=== PATIENT | male | born 1945 | race Caucasian/White ===

== ENCOUNTER 2020-09-13 15:33 | Emergency (ER) | payer MEDICARE, MEDICAID, SELFPAY ==
[2020-09-13 15:37] VITALS: BP 122/75; PULSE 90; RESP 16; TEMP 36.7; O2SAT 96; BMI 24.3
--- NOTE | 2020-09-13 16:00 | PC.NURSE ---
UNWITNESSED FALL AT [facility] IN [place]. NEUROS +. SMALL LAC ABOVE R EYE. SELF REPORTED MECHANICAL FALL. NO OTHER INJURIES, ONLY HEAD PAIN REPORTED.
--- NOTE | 2020-09-13 16:03 | CT_ITS ---
EXAMINATION: CT HEAD WITHOUT CONTRAST CLINICAL INFORMATION: Fall. COMPARISON: None TECHNIQUE: Contiguous axial imaging was performed from the skull base to vertex without intravenous administration of contrast. This CT examination was performed using dose optimization techniques as appropriate, variously including the following: *Automated exposure control *Adjustment of mA and/or kV according to patient size (this includes techniques or standardized protocols for targeted exams where dose is matched to indication/reason for exam; i.e. extremities or head) *Use of iterative reconstruction technique DLP: 1471 mGy-cm FINDINGS: There is no evidence of acute intracranial hemorrhage or territorial infarction. No abnormal mass effect or midline shift is seen. Fraire to white matter differentiation is well preserved. No extra-axial fluid collections are identified. Mild cerebral volume loss. Mild periventricular and deep white matter hypodensities having the appearance of chronic microangiopathic changes. No acute calvarial fracture. The mastoid air cells and visualized portions of the paranasal sinuses are well aerated. CT/CT head/brain wo con IMPRESSION: No CT evidence of acute intracranial pathology. Chronic findings as detailed above.
--- NOTE | 2020-09-13 16:03 | CT_ITS ---
EXAMINATION: CT CERVICAL SPINE WITHOUT CONTRAST CLINICAL INFORMATION: Fall. COMPARISON: None TECHNIQUE: Axial imaging. Sagittal and coronal reconstructions. This CT examination was performed using dose optimization techniques as appropriate, variously including the following: *Automated exposure control *Adjustment of mA and/or kV according to patient size (this includes techniques or standardized protocols for targeted exams where dose is matched to indication/reason for exam; i.e. extremities or head) *Use of iterative reconstruction technique DLP: 1471 mGy-cm FINDINGS: Increased lordotic curvature. Craniocervical, atlantoaxial articulation is maintained. There is mild anterolisthesis of C7 on T1. No acute fracture is identified. Multilevel moderate to severe disc degenerative changes in the spine. This includes severe disc degeneration at C5-C6, C6-C7. Multilevel facet degeneration. No significant prevertebral soft tissue swelling. No suspicious findings in the lung apices. No suspicious findings in the thyroid gland. CT/CT cervical spine wo con IMPRESSION: 1. No CT evidence of acute fracture. 2. Moderate to severe cervical spondylosis.
--- NOTE | 2020-09-13 17:30 | ED.FALL ---
HPI - Fall General Chief Complaint: Fall Stated Complaint: fall Time Seen by Provider: 09/13/20 16:03 Source: EMS Mode of arrival: EMS Limitations: no limitations History of Present Illness HPI Narrative: 75-year-old male with past medical history that is significant for anoxic brain injury, dysarthria, hypertension, schizoaffective disorder, dysphagia, gastroesophageal reflux disease, degenerative disc disease, hypothyroidism, chronic slurred speech, gait instability who currently stays at [facility] presenting with complaint of mechanical fall. Patient apparently tripped over himself falling forward hitting his head on the ground causing laceration to the eyebrow line. Patient offers no complaints. Patient did have COVID early in the has since recovered and offers no complaints. Patient on arrival smiling. MD complaint: fall Fall witnessed: yes, by living facility staff Place fall occurred: snf/SNF Loss of consciousness: none Prolonged down time: no Associated symptoms (after fall): denies Related Data Allergies Allergy/AdvReac Type Severity Reaction Status Date / Time tuberculin, purified protein Allergy Unknown UNKNOWN Verified 09/13/20 15:47 deriva [TUBERCULIN,PURIF.PROT.DERIV.] Review of Systems Review of Systems: Constitutional: No Weight loss, No Fever, No Chills, No Night Sweats, No Fatigue, No Malaise ENT/Mouth: No Hearing loss, No Ear Pain, No Nasal Congestion, No Sinus Pain, No Hoarseness, No sore throat, No Rhinorrhea, No Swallowing Difficulty Eyes: No Eye Pain, No Swelling, No Redness, No Foreign Body, No Discharge, No Vision Changes Cardiovascular: No Chest Pain, No SOB, No Dyspnea on Exertion, No Orthopnea, No Edema, No Palpitations Respiratory: No Cough, No Sputum, No Wheezing, No Smoke Exposure, No Dyspnea Gastrointestinal: No Nausea, No Vomiting, No Diarrhea, No Constipation, No abdominal Pain, No Hematochezia, No Melena Genitourinary: no irregular bleeding, No Dysuria, No Urinary Frequency, No Hematuria, No Urinary Incontinence, No Urgency, No Flank Pain, No Urinary Flow Changes, No Hesitancy Musculoskeletal: No joint pain, No Myalgias, No Joint Swelling Skin: No Skin Lesions, No rash, laceration to right eyebrow line as noted Neuro: No Weakness, No Numbness, No Paresthesias, No Loss of Consciousness, No Dizziness, No Headache Psych: No Social Issues Heme/Lymph: No Bruising, No Bleeding,No Lymphadenopathy Endocrine: No Polyuria, No Polydipsia, No Temperature Intolerance Yes all other systems are reviewed and are negative [facility] Past Medical History Medical History (Updated 09/13/20 @ 18:21 by Alonso Juarez NP) Dysarthria and anarthria Hypothyroidism Schizoaffective disorder Unsteadiness on feet Social History Social History Alcohol intake: never Smoking Status: Smoker, status unknown Use of substances other than those prescribed or required for medical reasons: No Advance Directives: No Advance Directives Information Provided: Yes Physical Exam Vital Signs: Vital Signs: Last Vital Signs Temp 98.0 F 09/13/20 15:37 Pulse 90 09/13/20 15:37 Resp 16 09/13/20 15:37 BP 122/75 09/13/20 15:37 Pulse Ox 96 09/13/20 15:37 Body Mass Index 24.3 Reviewed Const: General: comfortable; No acute distress or intoxicated appearing Nutritional Appearance: average body habitus HENMT: Head: Yes normal to inspection Head images: 1. 1.5 cm superficial laceration to the right eyebrow line. Ears: hearing grossly normal bilaterally Eyes: General: appearance normal, both eyes and all related structures Visual Nava: normal visual nava by confrontation Neck: Neck: Yes normal visual inspection, No positive Brudzinski's sign, No positive Kernig's sign and No tender Thyroid: Thyroid normal Chest: Chest palpation & inspection: normal inspection of the chest Resp: Effort & Inspection: normal respiratory effort Cardio: Jugular venous distension: no JVD GI: Inspection: Yes normal to inspection Percussion: Yes normal to percussion Auscultation: normal bowel sounds : General: Yes no CVA tenderness Back/Spine/Pelvis: Back: no CVA tenderness Skin: General skin exam: no rashes or lesions noted Extrem: General: Yes normal to inspection Course Course Course Narrative: A P of [age]-year-old male with above history presenting with mechanical fall via EMS from [facility] apparently witnessed fall offers no other complaints. No prodromal symptoms. Right eyebrow line laceration repaired with 3 nonabsorbable Prolene stitches. Facility aware to have these removed in [address] of the head head and neck without acute findings. Patient smiling requesting food to eat will be discharged back to facility via EMS. Procedures Laceration Laceration 1: Site: face Side (If applicable): right Size (cm): 1.5 Description: linear Depth: simple, single layer Local Anesthetic: lidocaine 1% Amount of anesthesia used (mL): 5 Pre-repair: wound explored Skin layer closed with: other (Prolene) Size (cm): 5-0 Number of sutures: 3 Technique: other (He does have very long eyebrow hair offered to remove this to easily visualize laceration and sutures he declined) MDM - Fall Medical Records Attestation: I reviewed the patient's medical records. Lab Data Attestation: I reviewed the patient's lab results. Imaging Data Head/cervical spine CT: Radiologist's impression: Tor Gordon 75 M 1945 [place] [address] [address] Scan Report Signed Patient: Tor GordonMR#: [id number] : [id number]:[id number] Age/Sex: 75 / MADM Date: 09/13/20 Loc: .ED Attending Dr: Ordering Physician: Alonso Juarez NP Date of Service: 09/13/20 Procedure(s): CT cervical spine wo con Accession Number(s): [id number] cc: Alonso Juarez NP~ EXAMINATION: CT CERVICAL SPINE WITHOUT CONTRAST CLINICAL INFORMATION: Fall. COMPARISON: None TECHNIQUE: Axial imaging. Sagittal and coronal reconstructions. This CT examination was performed using dose optimization techniques as appropriate, variously including the following: *Automated exposure control *Adjustment of mA and/or kV according to patient size (this includes techniques or standardized protocols for targeted exams where dose is matched to indication/reason for exam; i.e. extremities or head) *Use of iterative reconstruction technique DLP: 1471 mGy-cm FINDINGS: Increased lordotic curvature. Craniocervical, atlantoaxial articulation is maintained. There is mild anterolisthesis of C7 on T1. No acute fracture is identified. Multilevel moderate to severe disc degenerative changes in the spine. This includes severe disc degeneration at C5-C6, C6-C7. Multilevel facet degeneration. No significant prevertebral soft tissue swelling. No suspicious findings in the lung apices. No suspicious findings in the thyroid gland. CT/CT cervical spine wo con IMPRESSION: 1. No CT evidence of acute fracture. 2. Moderate to severe cervical spondylosis. Dictated By:KATHERINE HOUSTON MD Signed By:<Electronically signed by KATHERINE HOUSTON MD in OV>09/13/201743 DD/ 1603 TD/TT: Extrusion Die Template Maker: SHANTANU [place] [address] CT Scan Report Signed Patient: Arian Gordon#: [id number] : 7Acct:[id number] Age/Sex: 75 / MADM Date: 09/13/20 Loc: HO.ED Attending Dr: Ordering Physician: Alonso Juarez NP Date of Service: 09/13/20 Procedure(s): CT cervical spine wo con Accession Number(s): [id number] cc: Alonso Juarez NP~ EXAMINATION: CT CERVICAL SPINE WITHOUT CONTRAST CLINICAL INFORMATION: Fall. COMPARISON: None TECHNIQUE: Axial imaging. Sagittal and coronal reconstructions. This CT examination was performed using dose optimization techniques as appropriate, variously including the following: *Automated exposure control *Adjustment of mA and/or kV according to patient size (this includes techniques or standardized protocols for targeted exams where dose is matched to indication/reason for exam; i.e. extremities or head) *Use of iterative reconstruction technique DLP: 1471 mGy-cm FINDINGS: Increased lordotic curvature. Craniocervical, atlantoaxial articulation is maintained. There is mild anterolisthesis of C7 on T1. No acute fracture is identified. Multilevel moderate to severe disc degenerative changes in the spine. This includes severe disc degeneration at C5-C6, C6-C7. Multilevel facet degeneration. No significant prevertebral soft tissue swelling. No suspicious findings in the lung apices. No suspicious findings in the thyroid gland. CT/CT cervical spine wo con IMPRESSION: 1. No CT evidence of acute fracture. 2. Moderate to severe cervical spondylosis. Dictated By:KATHERINE HOUSTON MD Signed By:<Electronically signed by KATHERINE HOUSTON MD in OV>09/13/201743 DD/ 1603 TD/TT: Extrusion Die Template Maker: SHANTANU Discharge Plan Discharge Clinical Impression: Fall, Facial laceration, Sutured skin wound Patient Disposition: Xfer [facility] Instructions: Fall Prevention for Older Adults (ED), Facial Laceration (ED) Additional Instructions: CT scan of the head as well as cervical spine was within normal limits Laceration to the right side eyebrow line was repaired with 3 nonabsorbable sutures and these need to be removed and 5 days Keep site clean and dry Apply bacitracin daily as needed Return if any concerns or worsening symptoms Thank you Referrals: ED Physician,Mark [Emergency Provider] - 5 days (Suture removal) Sampson Ornelas DO [Primary Care Provider] - 2 days
--- NOTE | 2020-09-13 18:19 | PC.NURSE ---
3 STITCHES PLACED ABOVE R EYE BY RADIO BROADCASTER TALYA. REPORT GIVEN TO MATT ARCHULETA. AWAITING TRANSPORTATION BACK TO FACILITY.
== END 2020-09-13 18:35 ==
PROVIDERS: Emergency Provider Emergency Medicine; PCP Hospitalist
DX: S01.81XA Laceration without foreign body of other part of head, initial encounter (principal); G50.1 Atypical facial pain; M54.2 Cervicalgia; G44.309 Post-traumatic headache, unspecified, not intractable; F20.9 Schizophrenia, unspecified; W18.30XA Fall on same level, unspecified, initial encounter; Y93.9 Activity, unspecified; Y92.9 Unspecified place or not applicable; Y99.9 Unspecified external cause status; Z86.19 Personal history of other infectious and parasitic diseases; Z79.899 Other long term (current) drug therapy
CPT/HCPCS: 12011; 70450; 72125; 99284

== ENCOUNTER 2020-10-02 14:28 | Emergency (ER) | payer MEDICARE, MEDICAID, SELFPAY ==
--- NOTE | 2020-10-02 14:39 | ED_ITS ---
HPI - Altered Mental Status General Chief Complaint: Altered Mental Status <Alexandro Chowdhury MD - Last Filed: 10/02/20 17:06> Stated Complaint: 5am facial droop resolved at 7am <Alexandro Chowdhury MD - Last Filed: 10/02/20 17:06> Time Seen by Provider: 10/02/20 14:39 <Alexandro Chowdhury MD - Last Filed: 10/02/20 17:06> Source: EMS <Alexandro Chowdhury MD - Last Filed: 10/02/20 17:06> Mode of arrival: EMS <Alexandro Chowdhury MD - Last Filed: 10/02/20 17:06> Limitations: altered mental status <Alexandro Chowdhury MD - Last Filed: 10/02/20 17:06> History of Present Illness HPI narrative: Patient with decreased mental status, altered speech, and facial droop that started at 5am, it is now 2:30pm <Alexandro Chowdhury MD - Last Filed: 10/02/20 17:06> MD complaint: altered mental status and decreased responsiveness <Alexandro Chowdhury MD - Last Filed: 10/02/20 17:06> Onset (ago): hour(s) <Alexandro Chowdhury MD - Last Filed: 10/02/20 17:06> Severity: moderate <Alexandro Chowdhury MD - Last Filed: 10/02/20 17:06> Consistency of symptoms: constant <Alexandro Chowdhury MD - Last Filed: 10/02/20 17:06> Related Data Allergies/Adverse Reactions: Allergies Allergy/AdvReac Type Severity Reaction Status Date / Time tuberculin, purified protein Allergy Unknown UNKNOWN Verified 09/13/20 15:47 deriva [TUBERCULIN,PURIF.PROT.DERIV.] <Alexandro Chowdhury MD - Last Filed: 10/02/20 17:06> Review of Systems Review of Systems: Yes Unobtainable due to mental status <Alexandro Chowdhury MD - Last Filed: 10/02/20 17:06> Neurologic: Denies Sensory deficit (Neuro) <Alexandro Chowdhury MD - Last Filed: 10/02/20 17:06> [facility] Past Medical History Medical History: Medical History Dysarthria and anarthria Hypothyroidism Schizoaffective disorder Unsteadiness on feet <Alexandro Chowdhury MD - Last Filed: 10/02/20 17:06> Social History Social History: Social History Alcohol intake: never Smoking Status: Current some day smoker Use of substances other than those prescribed or required for medical reasons: No Advance Directives: No Advance Directives Information Provided: Yes <Alexandro Chowdhury MD - Last Filed: 10/02/20 17:06> Physical Exam Vital Signs: Vital Signs: Last Vital Signs Temp 98.1 F 10/02/20 16:00 Pulse 89 10/02/20 16:00 Resp 14 10/02/20 16:00 BP 134/107 H 10/02/20 16:00 Pulse Ox 99 10/02/20 14:47 Body Mass Index 22.8 <Alexandro Chowdhury MD - Last Filed: 10/02/20 17:06> Vital Signs: Last Vital Signs Temp 98.1 F 10/02/20 16:00 Pulse 89 10/02/20 16:00 Resp 14 10/02/20 16:00 BP 134/107 H 10/02/20 16:00 Pulse Ox 99 10/02/20 14:47 Body Mass Index 22.8 <Matty Mckeon MD - Last Filed: 10/02/20 20:23> Const: Other: Chronically ill appearing <Alexandro Chowdhury MD - Last Filed: 10/02/20 17:06> Nutritional Appearance: average body habitus <Alexandro Chowdhury MD - Last Filed: 10/02/20 17:06> Limitations: other limitations (severe dysarthria) <Alexandro Chowdhury MD - Last Filed: 10/02/20 17:06> HENMT: Head: Yes normal to inspection <Alexandro Chowdhury MD - Last Filed: 10/02/20 17:06> Ears: external ears normal <Alexandro Chowdhury MD - Last Filed: 10/02/20 17:06> General nose exam: Normal external nose present <Alexandro Chowdhury MD - Last Filed: 10/02/20 17:06> Mouth: Normal oral and palatal mucosa present and oropharynx normal <Alexandro Chowdhury MD - Last Filed: 10/02/20 17:06> Throat: Yes posterior oropharynx normal <Alexandro Chowdhury MD - Last Filed: 10/02/20 17:06> Eyes: General: appearance normal, both eyes and all related structures <Alexandro Chowdhury MD - Last Filed: 10/02/20 17:06> Neck: Other: supple <Alexandro Chowdhury MD - Last Filed: 10/02/20 17:06> Neck: Yes normal visual inspection <Alexandro Chowdhury MD - Last Filed: 10/02/20 17:06> Chest: Chest palpation & inspection: normal inspection of the chest <Alexandro Chowdhury MD - Last Filed: 10/02/20 17:06> Resp: Auscultation: clear to auscultation bilaterally <Alexandro Chowdhury MD - Last Filed: 10/02/20 17:06> Cardio: Jugular venous distension: no JVD <Alexandro Chowdhury MD - Last Filed: 10/02/20 17:06> Rate: regular rate <Alexandro Chowdhury MD - Last Filed: 10/02/20 17:06> Rhythm: regular rhythm <Alexandro Chowdhury MD - Last Filed: 10/02/20 17:06> Heart sounds: S1 normal heart sound present and S2 normal heart sound present <Alexandro Chowdhury MD - Last Filed: 10/02/20 17:06> GI: Inspection: Yes normal to inspection <Alexandro Chowdhury MD - Last Filed: 10/02/20 17:06> Palpation (GI): Soft to palpation, nontender and No hepatosplenomegaly present <Alexandro Chowdhury MD - Last Filed: 10/02/20 17:06> Auscultation: normal bowel sounds <Alexandro Chowdhury MD - Last Filed: 10/02/20 17:06> : General: Yes no CVA tenderness <Alexandro Chowdhury MD - Last Filed: 10/02/20 17:06> Back/Spine/Pelvis: Back: no CVA tenderness <Alexandro Chowdhury MD - Last Filed: 10/02/20 17:06> Skin: General skin exam: no rashes or lesions noted <Alexandro Chowdhury MD - Last Filed: 10/02/20 17:06> Neuro: Cranial nerves: Yes CN's II-XII intact bilaterally <Alexandro Chowdhury MD - Last Filed: 10/02/20 17:06> Motor exam (neuro): 5/5 motor strength present throughout <Alexandro Chowdhury MD - Last Filed: 10/02/20 17:06> Sensory Exam: No Sensory deficit (Neuro) <Alexandro Chowdhury MD - Last Filed: 10/02/20 17:06> Extrem: General: Yes normal to inspection <Alexandro Chowdhury MD - Last Filed: 10/02/20 17:06> Psych: Appearance: grossly normal <Alexandro Chowdhury MD - Last Filed: 10/02/20 17:06> NIH Stroke Scale Internal: Initial- Upon Arrival <Alexandro Chowdhury MD - Last Filed: 10/02/20 17:06> Time: 14:42 <Alexandro Chowdhury MD - Last Filed: 10/02/20 17:06> Level of Consciousness: Alert <Alexandro Chowdhury MD - Last Filed: 10/02/20 17:06> Level of Consciousness Questions: Answers neither question correctly <Alexandro Chowdhury MD - Last Filed: 10/02/20 17:06> Level of Consciousness Commands: Performs both tasks correctly <Alexandro Chowdhury MD - Last Filed: 10/02/20 17:06> Best Gaze: Normal <Alexandro Chowdhury MD - Last Filed: 10/02/20 17:06> Visual: No visual loss <Alexandro Chowdhury MD - Last Filed: 10/02/20 17:06> Facial Palsy: Normal <Alexandro Chowdhury MD - Last Filed: 10/02/20 17:06> Motor Arm (Right): No drift <Alexandro Chowdhury MD - Last Filed: 10/02/20 17:06> Motor Arm (Left): No drift <Alexandro Chowdhury MD - Last Filed: 10/02/20 17:06> Motor Leg (Right): No drift <Alexandro Chowdhury MD - Last Filed: 10/02/20 17:06> Motor Leg (Left): No drift <Alexandro Chowdhury MD - Last Filed: 10/02/20 17:06> Limb Ataxia: Absent <Alexandro Chowdhury MD - Last Filed: 10/02/20 17:06> Sensory: Normal <Alexandro Chowdhury MD - Last Filed: 10/02/20 17:06> Best Language: Severe aphasia <Alexandro Chowdhury MD - Last Filed: 10/02/20 17:06> Dysarthia: Severe dysarthria <Alexandro Chowdhury MD - Last Filed: 10/02/20 17:06> Extinction and Inattention: No abnormality <Alexandro Chowdhury MD - Last Filed: 10/02/20 17:06> Score: 6 <Alexandro Chowdhury MD - Last Filed: 10/02/20 17:06> Course Course Course Narrative: staff know patient state he is at baseline awaiting CT results. Will sign out to Dr. Mckeon <Alexandro Chowdhury MD - Last Filed: 10/02/20 17:06> Reevaluation(s) Reevaluation #1: Patient's CTA and CT head is negative for any acute ischemic stroke is at baseline focal neurological deficit [facility] <Matty Mckeon MD - Last Filed: 10/02/20 20:23> Time: 20:22 <Matty Mckeon MD - Last Filed: 10/02/20 20:23> MDM - Altered Mental Status Lab Data Result diagrams: : 10/02/20 15:54 10/02/20 17:42 <Alexandro Chowdhury MD - Last Filed: 10/02/20 17:06> Labs: Lab Results 10/02/20 10/02/20 10/02/20 Range/Units 15:09 15:12 15:54 WBC 6.6 (4.8-10.8) X10*3/uL RBC 4.96 (4.60-5.80) X10*6/uL Hgb 15.3 (14.0-18.0) g/dl Hct 47.2 (42-52) % MCV 95.2 (80-98) fL MCH 30.8 (27.0-33.0) pg MCHC 32.4 (31.0-36.0) g/dl RDW 12.7 (11.0-16.0) % Plt Count 291 (160-400) X10*3/uL MPV 9.0 L (9.4-12.4) fL Immature Gran % (Auto) 0.2 (0.0-0.4) % Neut % (Auto) 65.3 (45-73) % Lymph % (Auto) 16.1 L (20-40) % Trinity % (Auto) 14.8 H (2-11) % Eos % (Auto) 3.0 (0-4) % Baso % (Auto) 0.6 (0-2) % Lymph # (Auto) 1.1 L (1.2-4.9) X10*3/uL Trinity # (Auto) 1.0 (0.1-1.2) X10*3/uL Eos # (Auto) 0.2 (0.0-0.4) X10*3/uL Baso # (Auto) 0.0 (0.0-0.2) X10*3/uL Abs Immat Gran (auto) 0.01 (0.00-0.03) X10*3/uL Absolute Neuts (auto) 4.3 (2.0-8.3) X10*3/uL Absolute Nucleated RBC 0.000 (0.0-0.012) X10*3/uL Nucleated RBC % (auto) 0.0 (0.0-0.2) /100WBC PT (10.8-13.0) SEC Whole Blood PT 11.1 (11.1-13.5) sec INR (0.9-1.1) Whole Blood INR 0.9 (0.9-1.1) APTT (24.1-38.0) SEC Sodium Potassium Chloride Carbon Dioxide Anion Gap BUN Creatinine Estim Creat Clear Calc Estimated GFR POC Glucose 93 (60-115) mg/dL Random Glucose Calcium Total Creatine Kinase Troponin I High Sens (<3.5-35.0) ng/L 01/13/21 01/13/21 01/13/21 Range/Units 15:54 15:54 15:59 WBC (4.8-10.8) X10*3/uL RBC (4.60-5.80) X10*6/uL Hgb (14.0-18.0) g/dl Hct (42-52) % MCV (80-98) fL MCH (27.0-33.0) pg MCHC (31.0-36.0) g/dl RDW (11.0-16.0) % Plt Count (160-400) X10*3/uL MPV (9.4-12.4) fL Immature Gran % (Auto) (0.0-0.4) % Neut % (Auto) (45-73) % Lymph % (Auto) (20-40) % Trinity % (Auto) (2-11) % Eos % (Auto) (0-4) % Baso % (Auto) (0-2) % Lymph # (Auto) (1.2-4.9) X10*3/uL Trinity # (Auto) (0.1-1.2) X10*3/uL Eos # (Auto) (0.0-0.4) X10*3/uL Baso # (Auto) (0.0-0.2) X10*3/uL Abs Immat Gran (auto) (0.00-0.03) X10*3/uL Absolute Neuts (auto) (2.0-8.3) X10*3/uL Absolute Nucleated RBC (0.0-0.012) X10*3/uL Nucleated RBC % (auto) (0.0-0.2) /100WBC PT 12.2 (10.8-13.0) SEC Whole Blood PT (11.1-13.5) sec INR 1.0 (0.9-1.1) Whole Blood INR (0.9-1.1) APTT 36.0 (24.1-38.0) SEC Sodium Cancelled Potassium Cancelled Chloride Cancelled Carbon Dioxide Cancelled Anion Gap Cancelled BUN Cancelled Creatinine Cancelled Estim Creat Clear Calc Cancelled Estimated GFR Cancelled POC Glucose (60-115) mg/dL Random Glucose Cancelled Calcium Cancelled Total Creatine Kinase Cancelled Troponin I High Sens 10.4 (<3.5-35.0) ng/L 10/02/20 Range/Units 17:42 WBC (4.8-10.8) X10*3/uL RBC (4.60-5.80) X10*6/uL Hgb (14.0-18.0) g/dl Hct (42-52) % MCV (80-98) fL MCH (27.0-33.0) pg MCHC (31.0-36.0) g/dl RDW (11.0-16.0) % Plt Count (160-400) X10*3/uL MPV (9.4-12.4) fL Immature Gran % (Auto) (0.0-0.4) % Neut % (Auto) (45-73) % Lymph % (Auto) (20-40) % Trinity % (Auto) (2-11) % Eos % (Auto) (0-4) % Baso % (Auto) (0-2) % Lymph # (Auto) (1.2-4.9) X10*3/uL Trinity # (Auto) (0.1-1.2) X10*3/uL Eos # (Auto) (0.0-0.4) X10*3/uL Baso # (Auto) (0.0-0.2) X10*3/uL Abs Immat Gran (auto) (0.00-0.03) X10*3/uL Absolute Neuts (auto) (2.0-8.3) X10*3/uL Absolute Nucleated RBC (0.0-0.012) X10*3/uL Nucleated RBC % (auto) (0.0-0.2) /100WBC PT (10.8-13.0) SEC Whole Blood PT (11.1-13.5) sec INR (0.9-1.1) Whole Blood INR (0.9-1.1) APTT (24.1-38.0) SEC Sodium 143 Potassium 4.0 Chloride 105 Carbon Dioxide 28 Anion Gap 14 BUN 15 Creatinine 0.84 Estim Creat Clear Calc 82.0 Estimated GFR > 60 POC Glucose (60-115) mg/dL Random Glucose 87 Calcium 9.2 Total Creatine Kinase 386 H Troponin I High Sens (<3.5-35.0) ng/L <Alexandro Luciana, MD - Last Filed: 10/02/20 17:06> Lab Results 10/02/20 10/02/20 10/02/20 Range/Units 15:09 15:12 15:54 WBC 6.6 (4.8-10.8) X10*3/uL RBC 4.96 (4.60-5.80) X10*6/uL Hgb 15.3 (14.0-18.0) g/dl Hct 47.2 (42-52) % MCV 95.2 (80-98) fL MCH 30.8 (27.0-33.0) pg MCHC 32.4 (31.0-36.0) g/dl RDW 12.7 (11.0-16.0) % Plt Count 291 (160-400) X10*3/uL MPV 9.0 L (9.4-12.4) fL Immature Gran % (Auto) 0.2 (0.0-0.4) % Neut % (Auto) 65.3 (45-73) % Lymph % (Auto) 16.1 L (20-40) % Trinity % (Auto) 14.8 H (2-11) % Eos % (Auto) 3.0 (0-4) % Baso % (Auto) 0.6 (0-2) % Lymph # (Auto) 1.1 L (1.2-4.9) X10*3/uL Trinity # (Auto) 1.0 (0.1-1.2) X10*3/uL Eos # (Auto) 0.2 (0.0-0.4) X10*3/uL Baso # (Auto) 0.0 (0.0-0.2) X10*3/uL Abs Immat Gran (auto) 0.01 (0.00-0.03) X10*3/uL Absolute Neuts (auto) 4.3 (2.0-8.3) X10*3/uL Absolute Nucleated RBC 0.000 (0.0-0.012) X10*3/uL Nucleated RBC % (auto) 0.0 (0.0-0.2) /100WBC PT (10.8-13.0) SEC Whole Blood PT 11.1 (11.1-13.5) sec INR (0.9-1.1) Whole Blood INR 0.9 (0.9-1.1) APTT (24.1-38.0) SEC Sodium Potassium Chloride Carbon Dioxide Anion Gap BUN Creatinine Estim Creat Clear Calc Estimated GFR POC Glucose 93 (60-115) mg/dL Random Glucose Calcium Total Creatine Kinase Troponin I High Sens (<3.5-35.0) ng/L 10/02/20 10/02/20 10/02/20 Range/Units 15:54 15:54 15:59 WBC (4.8-10.8) X10*3/uL RBC (4.60-5.80) X10*6/uL Hgb (14.0-18.0) g/dl Hct (42-52) % MCV (80-98) fL MCH (27.0-33.0) pg MCHC (31.0-36.0) g/dl RDW (11.0-16.0) % Plt Count (160-400) X10*3/uL MPV (9.4-12.4) fL Immature Gran % (Auto) (0.0-0.4) % Neut % (Auto) (45-73) % Lymph % (Auto) (20-40) % Trinity % (Auto) (2-11) % Eos % (Auto) (0-4) % Baso % (Auto) (0-2) % Lymph # (Auto) (1.2-4.9) X10*3/uL Trinity # (Auto) (0.1-1.2) X10*3/uL Eos # (Auto) (0.0-0.4) X10*3/uL Baso # (Auto) (0.0-0.2) X10*3/uL Abs Immat Gran (auto) (0.00-0.03) X10*3/uL Absolute Neuts (auto) (2.0-8.3) X10*3/uL Absolute Nucleated RBC (0.0-0.012) X10*3/uL Nucleated RBC % (auto) (0.0-0.2) /100WBC PT 12.2 (10.8-13.0) SEC Whole Blood PT (11.1-13.5) sec INR 1.0 (0.9-1.1) Whole Blood INR (0.9-1.1) APTT 36.0 (24.1-38.0) SEC Sodium Cancelled Potassium Cancelled Chloride Cancelled Carbon Dioxide Cancelled Anion Gap Cancelled BUN Cancelled Creatinine Cancelled Estim Creat Clear Calc Cancelled Estimated GFR Cancelled POC Glucose (60-115) mg/dL Random Glucose Cancelled Calcium Cancelled Total Creatine Kinase Cancelled Troponin I High Sens 10.4 (<3.5-35.0) ng/L 10/02/20 Range/Units 17:42 WBC (4.8-10.8) X10*3/uL RBC (4.60-5.80) X10*6/uL Hgb (14.0-18.0) g/dl Hct (42-52) % MCV (80-98) fL MCH (27.0-33.0) pg MCHC (31.0-36.0) g/dl RDW (11.0-16.0) % Plt Count (160-400) X10*3/uL MPV (9.4-12.4) fL Immature Gran % (Auto) (0.0-0.4) % Neut % (Auto) (45-73) % Lymph % (Auto) (20-40) % Trinity % (Auto) (2-11) % Eos % (Auto) (0-4) % Baso % (Auto) (0-2) % Lymph # (Auto) (1.2-4.9) X10*3/uL Trinity # (Auto) (0.1-1.2) X10*3/uL Eos # (Auto) (0.0-0.4) X10*3/uL Baso # (Auto) (0.0-0.2) X10*3/uL Abs Immat Gran (auto) (0.00-0.03) X10*3/uL Absolute Neuts (auto) (2.0-8.3) X10*3/uL Absolute Nucleated RBC (0.0-0.012) X10*3/uL Nucleated RBC % (auto) (0.0-0.2) /100WBC PT (10.8-13.0) SEC Whole Blood PT (11.1-13.5) sec INR (0.9-1.1) Whole Blood INR (0.9-1.1) APTT (24.1-38.0) SEC Sodium 143 Potassium 4.0 Chloride 105 Carbon Dioxide 28 Anion Gap 14 BUN 15 Creatinine 0.84 Estim Creat Clear Calc 82.0 Estimated GFR > 60 POC Glucose (60-115) mg/dL Random Glucose 87 Calcium 9.2 Total Creatine Kinase 386 H Troponin I High Sens (<3.5-35.0) ng/L <Matty Mckeon MD - Last Filed: 10/02/20 20:23> ECG Data ECG #1: Attestation: I personally reviewed and interpreted this ECG as follows: <Alexandro Chowdhury MD - Last Filed: 10/02/20 17:06> Interpretation: sinus 88, old inferior Qs, no st or twave changes <Alexandro Chowdhury MD - Last Filed: 10/02/20 17:06>
--- NOTE | 2020-10-02 14:45 | ECG_ITS ---
Test Reason : STROKE Blood Pressure : / mmHG Vent. Rate : 088 BPM Atrial Rate : 088 BPM P-R Int : 166 ms QRS Dur : 086 ms QT Int : 362 ms P-R-T Axes : 061 -34 040 degrees QTc Int : 438 ms Normal sinus rhythm Left axis deviation Abnormal ECG When compared with ECG of 02-DEC-2013 06:20, No significant change was found Referred By: Alexandro Chowdhury Electronically Signed By:CAEDN KENT MD
[2020-10-02 14:47] VITALS: BP 129/69; PULSE 93; RESP 16; TEMP 36.6; O2SAT 99; BMI 22.8
--- NOTE | 2020-10-02 14:47 | CT_ITS ---
EXAMINATION: CT ANGIOGRAM HEAD CT ANGIOGRAM NECK CLINICAL INFORMATION: Stroke. COMPARISON: CT head from 09/13/2020. TECHNIQUE: Initial noncontrast public health professor imaging of the head and neck was performed. Noncontrast head CT was also performed. Test bolus sequences followed by intravenous administration 70 mL of Omnipaque 350. Helical imaging was performed in the axial plane from the aortic arch to the skull vertex. Delayed postcontrast imaging of the head was also performed. The data was processed at the neurodiagnostic technologist's workstation for generation of MIP sequences. Angled MIPs and volume rendered reformatted images were also generated at an offline 3D workstation. Stenoses are assessed in accordance with NASCET criteria unless otherwise indicated. DLP: 2810 mGy-cm This CT examination was performed using dose optimization techniques as appropriate, variously including the following: *Automated exposure control. *Adjustment of mA and/or kV according to patient size (this includes techniques or standardized protocols for targeted exams where dose is matched to indication/reason for exam; i.e. extremities or head). *Use of iterative reconstruction technique. FINDINGS: CT Head: There is no evidence of acute intracranial hemorrhage or edematous territorial infarction. Scattered hypoattenuation in the periventricular and deep white matter are consistent with mild to moderate microangiopathy. Fraire-white matter differentiation is preserved. Proportional prominence of the ventricles and sulcal spaces. No evidence for obstructive hydrocephalus. No abnormal mass effect or midline shift. No extra-axial fluid collections. No pathologic intra-axial enhancement or regional oligemia. No acute soft tissue or osseous abnormalities. The patient is edentulous. Mild mucosal thickening of the paranasal sinuses. The mastoid air cells and middle ear cavities remain well aerated. CT Neck: The thyroid gland and remaining cervical soft tissues are within normal limits. Moderate multilevel degenerative spondyloarthropathy of the cervical spine. Advanced degenerative disc disease from C3-T1 with disc-osteophyte complexes. Multilevel facet and uncovertebral joint arthropathy leads to osseous encroachment on the neural foramina from C3-C7. CT Upper Chest: Moderate underlying centrilobular emphysema. Otherwise, the visualized lung apices and upper mediastinum are within normal limits. Neck CTA: Aortic Arch: Normal contour and caliber with moderate calcific atherosclerotic disease. Classic 3 vessel branching pattern of the aortic arch. Great Vessel Origins: No significant stenosis of the branch origins. Mixed lipid rich and calcific atherosclerotic disease does however, this 70% stenosis of the proximal left subclavian artery. Right Common Carotid Artery: Normal opacification without focal stenosis or occlusion. Cervical Right Internal Carotid Artery: Calcific atherosclerotic disease of the carotid bulb and proximal internal carotid artery causing less than 50% stenosis. Left Common Carotid Artery: Normal opacification without focal stenosis or occlusion. Cervical Left Internal Carotid Artery: Calcific atherosclerotic disease of the carotid bulb and proximal internal carotid artery causing less than 50% stenosis. Cervical Right Vertebral Artery: No significant atherosclerotic disease causes moderate to high-grade stenosis of the origin. Otherwise, normal opacification without focal stenosis or occlusion. Cervical Left Vertebral Artery: Dominant. Lipid rich atheromatous disease causes less than 50% stenosis of the proximal V1 segment. Otherwise, normal opacification without focal stenosis or occlusion. Brain CTA: Intracranial Internal Carotid Arteries: Mild calcific atherosclerotic disease of the intracranial internal carotid arteries without occlusion or flow-limiting stenosis. Otherwise, normal contrast opacification of the petrous, cavernous, paraophthalmic, and supraclinoid segments of the internal carotid arteries without focal stenosis. Right Anterior Cerebral Artery: Normal A1 segment. Normal opacification of the distal segments of the KODY. Left Anterior Cerebral Artery: Normal A1 segment. Normal opacification of the distal segments of the KODY. Anterior Communicating Artery: Normal. Right Middle Cerebral Artery: Normal opacification of the M1 segment of the MCA without focal stenosis or occlusion. Normal arborization of the distal segments. Left Middle Cerebral Artery: Normal opacification of the M1 segment of the MCA without focal stenosis or occlusion. Normal arborization of the distal segments. Right Vertebral Artery: The V4 segment largely terminates as the posterior inferior cerebellar artery. Threadlike continuation of the V4 segment of the basilar artery with multifocal moderate to high-grade narrowings of the distal V4 segment. Normal opacification of the proximal segments of the posterior inferior cerebellar artery. Left Vertebral Artery: Calcific atherosclerotic disease causes mild narrowing of the proximal V4 segment. Otherwise, normal opacification of the V4 segment. Normal opacification of the proximal segments of the posterior inferior cerebellar artery. 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 Normal appearance of the proximal superior cerebellar arteries. Right Posterior Cerebral Artery: The P1 segment is mildly diminutive. origin of the BETA TESTER with robust opacification of the posterior communicating artery. Normal opacification of the distal segments of the BETA TESTER. Left Posterior Cerebral Artery: Normal P1 segment. Normal posterior communicating artery. Normal opacification of the distal segments of the BETA TESTER. Normal opacification of the superior sagittal, straight, transverse, and sigmoid sinuses. CT/CT angio head neck IMPRESSION: 1. No evidence of acute intracranial hemorrhage or edematous territorial infarction. Mild to moderate underlying microangiopathy and generalized cerebral volume loss. 2. CTA of the head and neck without proximal occlusion. 3. 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 4. 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 5. 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 This critical result was discussed with Dr. Mckeon at 19:59 on 10/02/2020 and it was ascertained that the content and urgency of the report was understood at the time of direct communication.
[2020-10-02 15:17] LABS: Glucose, Whole Blood 93 mg/dL (60-115)
[2020-10-02 15:17] LABS: Prothrombin Time Whole Bld POC 11.1 sec (11.1-13.5); ~PT, ~INR - Anti Coag Clinic 0.9 (0.9-1.1)
[2020-10-02 16:00] VITALS: BP 134/107; PULSE 89; RESP 14; TEMP 36.7
[2020-10-02 16:01] LABS: MANUAL DIFF FLAG NO
[2020-10-02 16:03] LABS: Basophils Percent Auto 0.6 % (0-2); Eosinophils Absolute Auto 0.2 X10*3/uL (0.0-0.4); Hematocrit 47.2 % (42-52); Hemoglobin 15.3 g/dl (14.0-18.0); Imm Gran Abs Auto 0.01 X10*3/uL (0.00-0.03); Imm Gran Pct Auto 0.2 % (0.0-0.4); Lymphocytes Absolute Auto 1.1 X10*3/uL (1.2-4.9); Lymphocytes Percent Auto 16.1 % (20-40); Mean Corpuscular HGB Conc 32.4 g/dl (31.0-36.0); Mean Corpuscular Hemoglobin 30.8 pg (27.0-33.0); Mean Corpuscular Volume 95.2 fL (80-98); Monocytes Percent Auto 14.8 % (2-11); Neutrophils Absolute Auto 4.3 X10*3/uL (2.0-8.3); Neutrophils Percent Auto 65.3 % (45-73); Platelet Count 291 X10*3/uL (160-400); Red Blood Count 4.96 X10*6/uL (4.60-5.80); Red Cell Distribution Width 12.7 % (11.0-16.0); White Blood Count 6.6 X10*3/uL (4.8-10.8)
[2020-10-02 16:34] LABS: Troponin-I High Sensitivity 10.4 ng/L (<3.5-35.0)
[2020-10-02 16:45] LABS: Prothrombin Time 12.2 SEC (10.8-13.0)
--- NOTE | 2020-10-02 17:56 | PC.NURSE ---
pt's lab work (bmp) was hemolized, redraw done by this rn. pt still to go to ct scan.
[2020-10-02 18:15] LABS: Anion Gap 14 (12-20); Blood Urea Nitrogen 15 mg/dL (9-16); Calcium 9.2 mg/dL (8.4-10.2); Carbon Dioxide 28 mmol/L (22-29); Chloride 105 mmol/L (96-108); Estimated Glomerular Filt Rate > 60; Glucose Random 87 mg/dL (60-115); Sodium 143 mmol/L (135-145)
[2020-10-02 18:50] LABS: Stroke Lab Use COMPLETE
[2020-10-02] MEDS: iohexoL 350 MG/ML 100 ML INFUS..BTL IV (19:11)
--- NOTE | 2020-10-02 20:06 | PC.NURSE ---
PER , PATIENT TO BE DISCHARGED BACK TO [facility].
== END 2020-10-02 21:03 | disposition skilled nursing facility (03) ==
PROVIDERS: Emergency Provider Emergency Medicine
DX: G45.9 Transient cerebral ischemic attack, unspecified (principal); F17.200 Nicotine dependence, unspecified, uncomplicated
CPT/HCPCS: 36415; 70496; 70498; 80048; 82550; 82947; 84484; 85025; 85610; 85730; 93005; 99284; Q9967

== ENCOUNTER 2020-10-31 07:48 | Outpatient (REF) | payer MEDICARE, MEDICAID, SELFPAY | END 2020-10-31 07:49 | disposition home or self-care (01) | LOC: HO.CT 07:48 | PROVIDERS: Visit Provider Hospitalist | DX: Z13.89 Encounter for screening for other disorder (principal) ==

== ENCOUNTER 2020-11-05 08:51 | Outpatient (REF) | payer MEDICARE, MEDICAID, SELFPAY ==
--- NOTE | ~2020-11-05 | CT_ITS ---
EXAMINATION: CT ANGIOGRAM HEAD NECK CLINICAL INFORMATION: 75-year-old with recent TIA. COMPARISON: 10/02/2020 CT angiogram. TECHNIQUE: The degree of stenosis determined by NASCET criteria. Volumetric CT angiography of the head and neck was performed from the upper thorax to the vertex following the bolus intravenous administration of 70 mL of Omnipaque 350 contrast material via power injector. This CT examination was performed using dose optimization techniques as appropriate, variously including the following: *Automated exposure control *Adjustment of mA and/or kV according to patient size (this includes techniques or standardized protocols for targeted exams where dose is matched to indication/reason for exam; i.e. extremities or head) *Use of iterative reconstruction technique DLP: 2995 mGy-cm FINDINGS: CTA CHEST, NECK: Diffuse partially calcified atheromatous changes are seen throughout the aortic arch without significant luminal diameter reduction stable in appearance. Redemonstrated is a 70% stenosis of the proximal left subclavian artery stable in appearance from previous exam. More distally the left subclavian artery is normal in caliber. There are calcified and noncalcified atheromatous changes of the innominate artery stable in appearance without significant luminal diameter reduction. Right subclavian artery is normal in caliber with calcified plaque noted proximally unchanged. The common carotid artery origins are normal in caliber with calcified plaque at the origin of the left common carotid artery unchanged. There is calcified plaque at the origin of the right vertebral artery which is suboptimally visualized. The left vertebral artery origin is normal in caliber and smoothly contoured. The left vertebral artery is dominant. The remainder of the cervical vertebral arteries are not significantly focally stenotic or segmentally occluded. The V4 segments of the vertebral arteries demonstrate atheromatous calcifications, left more than right. There is partially calcified plaque in the mid to distal left common carotid artery with a similar appearance to the previous study without significant luminal diameter reduction stenosis. There is calcified plaque at the left carotid bulb/bifurcation unchanged in appearance without significant luminal diameter reduction. There is calcified and noncalcified plaque along the posterior wall of the proximal left internal carotid artery stable in appearance without luminal diameter reduction. Calcified plaque at the right carotid bulb/bifurcation is similar to the previous exam with no significant luminal diameter reduction. Calcified and noncalcified plaque in the mid to proximal right ICA is noted with less than 50% diameter reduction stenosis stable in appearance. There is marked tortuosity of the upper cervical ICAs bilaterally unchanged in appearance. CTA BRAIN: Anterior circulation: Mild mural calcifications are seen along the ophthalmic and supraclinoid segments of both internal carotid arteries similar to the previous exam without significant luminal diameter reduction stenosis. Otherwise the petrous, cavernous, ophthalmic and supraclinoid segments demonstrate normal caliber and normal opacification. The A1 and A2 segments demonstrate normal caliber. The M1 and M2 segments also demonstrate normal caliber with normal arborization of the candelabra branches. Posterior circulation: Atheromatous calcification of the V4 segments, left more than right with the right being partially hypoplastic unchanged in appearance, with [id number] narrowing of the proximal left V4 segment unchanged. Redemonstrated is atheromatous change within the basilar artery with a 3 mm short segment near-occlusive focal stenosis of the mid basilar artery, similar in appearance to the previous study. The superior cerebellar and posterior cerebral arteries are patent and normal in caliber. There is origin of the right [employer] with a hypoplastic right P1 segment unchanged in appearance. Left posterior communicating artery is patent. CT BRAIN: Moderate generalized diffuse brain parenchymal volume loss is similar to the previous exam with no evidence for extra-axial fluid collection, space-occupying process or mass effect. Subtle patchy hypodensity in the subcortical white matter and deeper white matter of both cerebral hemispheres is similar to the previous exam. No mass lesions, abnormal enhancement, space-occupying process or mass effect. Bony structures appear intact. The visualized airspaces are unopacified. Soft tissue structures of the neck are grossly unremarkable. Soft tissue structures of the chest demonstrate atheromatous changes of the aortic arch with an unremarkable appearance to the mediastinum within the limitations of the exam. Mild centrilobular emphysematous changes are again noted. Skeletal structures: Multilevel cervical DDD and spondylosis similar to the previous exam with stable 3 mm anterolisthesis at C7-T1. CT/CT angio head neck IMPRESSION: 1. A 3 mm near-occlusive short segment stenosis of the mid basilar artery stable in appearance from previous exam. Mild atheromatous changes of the proximal left V4 segment of the vertebral artery with mild stenosis stable in appearance. 2. Atheromatous vascular calcifications at the carotid bifurcations and proximal to mid right internal carotid artery with less than 50% diameter reduction stenosis bilaterally based on NASCET-type criteria, unchanged in appearance. 3. 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 The right vertebral artery origin is not well visualized on the current exam. 4. Moderate generalized diffuse brain parenchymal volume loss and mild chronic ischemic microangiopathic changes in the white matter stable in appearance.
[2020-11-05] MEDS: iohexoL 350 MG/ML 100 ML INFUS..BTL 70 ML IV (09:43)
== END 2020-11-05 08:52 | disposition home or self-care (01) ==
LOC: HO.CT 08:51
PROVIDERS: Visit Provider Hospitalist
DX: G45.9 Transient cerebral ischemic attack, unspecified (principal)
CPT/HCPCS: 70496; 70498; Q9967

== ENCOUNTER 2020-11-12 10:23 | Outpatient (REF) | payer MEDICARE, MEDICAID, SELFPAY | END 2020-11-12 10:24 | disposition home or self-care (01) | LOC: HO.CT 10:23 | PROVIDERS: Visit Provider Hospitalist | DX: Z13.89 Encounter for screening for other disorder (principal) ==

== ENCOUNTER 2021-04-30 04:42 | Emergency (ER) | payer MEDICARE, MEDICAID, SELFPAY ==
--- NOTE | ~2021-04-30 | XR_ITS ---
EXAMINATION: XR CHEST CLINICAL INFORMATION: Altered mental status. Question aspiration COMPARISON: 01/20/2016 TECHNIQUE: Frontal view of the chest was obtained. FINDINGS: Cardiac leads overlie the chest. Lung volumes are low. No consolidation, edema, or effusion. No pneumothorax. The cardiomediastinal silhouette is normal in size with a calcified aorta. XR/XR chest 1V IMPRESSION: Low lung volumes. Clear lungs.
[2021-04-30 04:46] VITALS: BP 121/52; PULSE 60; RESP 20; TEMP 36.6; O2SAT 94; BMI 23.6
[2021-04-30 04:52] VITALS: O2SAT 92
--- NOTE | 2021-04-30 04:54 | ED.AMS ---
HPI - Altered Mental Status General Chief Complaint: General Medical Stated Complaint: Unresponsive Time Seen by Provider: 04/30/21 04:54 Source: patient, EMS and RN notes reviewed Mode of arrival: EMS History of Present Illness HPI narrative: Patient history of schizoaffective disorder came from skilled nursing for change in mental status. Per staff patient transfer from bed to wheelchair as patient wanted to take shower while patient is sitting on the wheelchair he slumped over drooling apneic and pulseless staff assisted patient back to the bed patient coughed and back to normal patient denies any complaints denies any chest pain on arrival patient blood pressure was 121/52 pulse rate 60 saturating 94% room air Related Data Allergies Allergy/AdvReac Type Severity Reaction Status Date / Time tuberculin, purified protein Allergy Unknown UNKNOWN Verified 04/30/21 04:51 deriva [TUBERCULIN,PURIF.PROT.DERIV.] Review of Systems Review of Systems: Yes Unobtainable due to mental status PMFSH Past Medical History Medical History Dysarthria and anarthria Hypothyroidism Schizoaffective disorder Unsteadiness on feet Social History Social History Alcohol intake: never Advance Directives: No Advance Directives Information Provided: No Physical Exam Vital Signs: Vital Signs: Last Vital Signs Temp 97.9 F 04/30/21 04:46 Pulse 60 04/30/21 06:05 Resp 16 04/30/21 06:05 BP 117/60 04/30/21 06:05 Pulse Ox 94 04/30/21 06:05 Body Mass Index 23.6 Appearance: Alert. Oriented X2. No acute distress. Eyes: PERRLA, No Nystagmus ENT: Pharynx normal. Oral Mucosa moist Neck: Normal inspection. Neck supple. CVS: Normal heart rate and rhythm. Pulses normal. Respiratory: No respiratory distress. Equal air entry bilateral, no wheezing/rales/rhonchi Abdomen: Soft and nontender. Bowel sounds are present, no mass palpable, no CVA tenderness Skin: Skin warm and dry. Normal skin color. Normal skin turgor. Extremities: No lower extremity edema. No calf tenderness Neuro: Oriented X 3. No motor deficit. No sensory deficit.No cerebellar signs , cranial nerves II-XII intact MDM - Altered Mental Status MDM Narrative Medical decision making narrative: Patient with no complaints at this time vital stable workup negative for any aspiration pneumonia or any acute ischemia no cardiac arrhythmia noticed patient in deep sleep and is likely the cause unresponsiveness Lab Data Attestation: I reviewed the patient's lab results. Result diagrams: 04/30/21 05:07 04/30/21 05:07 Labs: Lab Results 04/30/21 04/30/21 04/30/21 Range/Units 05:07 05:07 05:07 WBC 5.6 (4.8-10.8) X10*3/uL RBC 4.72 (4.60-5.80) X10*6/uL Hgb 14.1 (14.0-18.0) g/dl Hct 43.5 (42-52) % MCV 92.2 (80-98) fL MCH 29.9 (27.0-33.0) pg MCHC 32.4 (31.0-36.0) g/dl RDW 13.4 (11.0-16.0) % Plt Count 302 (160-400) X10*3/uL MPV 8.8 L (9.4-12.4) fL Immature Gran % (Auto) 0.2 (0.0-0.4) % Neut % (Auto) 69.0 (45-73) % Lymph % (Auto) 15.6 L (20-40) % [place] % (Auto) 8.3 (2-11) % Eos % (Auto) 6.5 H (0-4) % Baso % (Auto) 0.4 (0-2) % Lymph # (Auto) 0.9 L (1.2-4.9) X10*3/uL [place] # (Auto) 0.5 (0.1-1.2) X10*3/uL Eos # (Auto) 0.4 (0.0-0.4) X10*3/uL Baso # (Auto) 0.0 (0.0-0.2) X10*3/uL Abs Immat Gran (auto) 0.01 (0.00-0.03) X10*3/uL Absolute Neuts (auto) 3.9 (2.0-8.3) X10*3/uL Absolute Nucleated RBC 0.000 (0.0-0.012) X10*3/uL Nucleated RBC % (auto) 0.0 (0.0-0.2) /100WBC Sodium 138 (135-145) mmol/L Potassium 4.4 (3.3-5.1) mmol/L Chloride 108 (96-108) mmol/L Carbon Dioxide 22 (22-29) mmol/L Anion Gap 12 (12-20) BUN 16 (9-16) mg/dL Creatinine 0.83 (0.5-1.4) mg/dL Estim Creat Clear Calc 87.0 Estimated GFR > 60 Random Glucose 112 (60-115) mg/dL Calcium 8.6 D (8.4-10.2) mg/dL Troponin I High Sens 3.6 (<3.5-35.0) ng/L ECG Data ECG #1: Attestation: I personally reviewed and interpreted this ECG as follows: Interpretation: Normal sinus rhythm heart rate 63 beats per minute normal intervals normal axis no ischemic changes Discharge Plan Discharge Clinical Impression: Altered mental status, unspecified Qualifiers: Altered mental status type: transient alteration of awareness Qualified Code(s): R40.4 - Transient alteration of awareness Patient Disposition: Xfer SNF Transfer Details: To skilled nursing Instructions: Altered Mental Status (ED) Additional Instructions: Patient symptoms likely from deep sleep at this time patient's workup is negative for any acute please follow-up with PCP Interventions: ED Discharge Assessment Last Done: 04/30/21 06:45
--- NOTE | 2021-04-30 04:55 | ECG_ITS ---
Test Reason : CARDIAC CHECKUP Blood Pressure : / mmHG Vent. Rate : 063 BPM Atrial Rate : 063 BPM P-R Int : 180 ms QRS Dur : 090 ms QT Int : 414 ms P-R-T Axes : 028 087 043 degrees QTc Int : 423 ms Normal sinus rhythm Normal ECG When compared with ECG of 02-OCT-2020 15:20, QRS axis Shifted right Referred By: Matty Moses Electronically Signed By:CADEN KENT MD
--- NOTE | 2021-04-30 04:59 | PC.NURSE ---
This RN calling [facility]. Per GEREMIAS Franks, pt had a witnessed syncopal episode after being transferred into wheelchair. Staff further elaborate that he was unresponsive for 5 minutes with an O2 sat of 78%. Per staff, pt was transferred back into bed, O2 applied @ 2 lpm, pt then came back to life. Staff unsure if pt received any medications to sleep at bedtime. Staff deny any similar episode happening in the past. aware.
[2021-04-30 05:12] LABS: MANUAL DIFF FLAG NO
[2021-04-30 05:14] LABS: Basophils Percent Auto 0.4 % (0-2); Eosinophils Absolute Auto 0.4 X10*3/uL (0.0-0.4); Eosinophils Percent Auto 6.5 % (0-4); Hematocrit 43.5 % (42-52); Hemoglobin 14.1 g/dl (14.0-18.0); Imm Gran Abs Auto 0.01 X10*3/uL (0.00-0.03); Imm Gran Pct Auto 0.2 % (0.0-0.4); Lymphocytes Absolute Auto 0.9 X10*3/uL (1.2-4.9); Lymphocytes Percent Auto 15.6 % (20-40); Mean Corpuscular HGB Conc 32.4 g/dl (31.0-36.0); Mean Corpuscular Hemoglobin 29.9 pg (27.0-33.0); Mean Corpuscular Volume 92.2 fL (80-98); Mean Platelet Volume 8.8 fL (9.4-12.4); Monocytes Absolute Auto 0.5 X10*3/uL (0.1-1.2); Monocytes Percent Auto 8.3 % (2-11); Neutrophils Absolute Auto 3.9 X10*3/uL (2.0-8.3); Platelet Count 302 X10*3/uL (160-400); Red Blood Count 4.72 X10*6/uL (4.60-5.80); Red Cell Distribution Width 13.4 % (11.0-16.0); White Blood Count 5.6 X10*3/uL (4.8-10.8)
--- NOTE | 2021-04-30 05:14 | PC.NURSE ---
EKG and labs obtained. Plan for CXR. Awaiting results.
--- NOTE | 2021-04-30 05:21 | PC.NURSE ---
XRay at bedside.
[2021-04-30 05:38] LABS: Troponin-I High Sensitivity 3.6 ng/L (<3.5-35.0)
[2021-04-30 05:46] LABS: Anion Gap 12 (12-20); Blood Urea Nitrogen 16 mg/dL (9-16); Calcium 8.6 mg/dL (8.4-10.2); Carbon Dioxide 22 mmol/L (22-29); Chloride 108 mmol/L (96-108); Estimated Glomerular Filt Rate > 60; Glucose Random 112 mg/dL (60-115); Potassium 4.4 mmol/L (3.3-5.1); Sodium 138 mmol/L (135-145)
[2021-04-30 06:05] VITALS: BP 117/60; PULSE 60; RESP 16; O2SAT 94
--- NOTE | 2021-04-30 06:45 | PC.NURSE ---
EMS called for return transport to [facility].
--- NOTE | 2021-04-30 06:47 | PC.NURSE ---
This RN attempting to call [facility] to give nurse to nurse. This RN unable to reach anyone at [facility].
--- NOTE | 2021-04-30 06:49 | PC.NURSE ---
Nurse to nurse given to [facility]. Pt awaiting EMS transport.
== END 2021-04-30 08:24 | disposition skilled nursing facility (03) ==
PROVIDERS: Emergency Provider Internal Medicine
DX: R40.4 Transient alteration of awareness (principal); F25.9 Schizoaffective disorder, unspecified
CPT/HCPCS: 36415; 71045; 80048; 84484; 85025; 93005; 99284

== ENCOUNTER 2021-08-26 12:24 | Inpatient (IN) | payer MEDICARE, MEDICAID, SELFPAY ==
--- NOTE | ~2021-08-26 | CT_ITS ---
EXAMINATION: CT BRAIN WITHOUT CONTRAST. CT ABDOMEN PELVIS WITH CONTRAST CLINICAL INFORMATION: Left facial droop. Dysphagia. Rectal wall infection. COMPARISON: CT head 09/13/2020 CT abdomen and pelvis 01/20/2016 TECHNIQUE: 5 mm thin axial and reformatted 2 mm thin sagittal and coronal images of brain were obtained. There is patient motion during the exam. Subsequently axial 5 mm thin and reformatted 3 mm thin sagittal sagittal and coronal images of abdomen and pelvis were obtained following IV however mL Omnipaque 350. DLP 1754 mGy/cm. FINDINGS: Brain: There is no acute intra-axial, extra-axial bleed, masses or midline shift. There is no acute infarction evolution. There is no edema. The lateral ventricles are symmetrical in size and configuration. The reddy to white matter differentiation is maintained normal. There is mild prominence of cerebellar sulci suggesting mild cerebellar volume loss. There is pineal gland calcification. Bone windows reveal no calvarial abnormality. There is no scalp soft tissue abnormality. Bilateral paranasal sinuses and mastoid air cells are well aerated. Abdomen and pelvis: There is dependent compressive atelectasis. No consolidation seen. The heart size is normal. There are coronary artery calcifications present. The liver is normal size, contour and density. No focal lesion or intrahepatic ductal dilatation seen. The gallbladder is contracted with no radiopaque calculi or wall thickening. Visualized pancreas, spleen and bilateral adrenal glands are unremarkable. Both kidneys are normal size, shape and cortical thickening. No radiopaque calculi or hydronephrosis seen. There is arthroscopic calcification abdominal aorta without aneurysmal dilatation. No retroperitoneal lymph nodes or mass seen. There is moderate stool and diverticuli in colon without distention or diverticulitis. The small bowel loops are normal caliber. The appendix is normal caliber. The abdominal wall appears unremarkable. Imaging through the pelvis reveals mild mural thickening of the rectal wall and sigmoid-rectum junction. No pericolic fat stranding seen. There is no abscess, fluid collection or free air. No abnormal lymph nodes seen. Bone windows reveal degenerative disc changes with spondylosis lower dorsal spine. There is vacuum disc phenomena with spondylosis and loss of disc height L4-L5 and L5-S1 disc level. There is grade 1 [address]4 over L5[address]/CT abdomen pelvis w con IMPRESSION: No acute intracranial process seen. Mild mural thickening involving the rectum and sigmoid-rectal junction, nonspecific. No abnormal pelvic, inguinal or retroperitoneal lymph nodes seen. Moderate constipation with colonic diverticulosis without diverticulitis. Degenerative disc changes with vacuum disc phenomena L4-L5 and L5-S1 disc level. There is grade 1 anterolisthesis L4 over L5.
[2021-08-26 12:35] VITALS: BP 138/94; BP 96/47; PULSE 81; PULSE 89; RESP 18; TEMP 37.1; O2SAT 96; BMI 18.5
--- NOTE | 2021-08-26 12:37 | ED.ABDPAIN ---
HPI - Abdominal Pain General Chief Complaint: Wound/Laceration Stated Complaint: ABD PAIN FRROM [facility] Time Seen by Provider: 08/26/21 12:37 Source: patient, EMS, RN notes reviewed and old records reviewed Mode of arrival: EMS Limitations: altered mental status and other (Difficulty communicating) History of Present Illness HPI narrative: 76-year-old male with a history of schizoaffective disorder, HTN, GERD, hypothyroidism, history of stroke, anoxic brain injury, dysphagia, aspiration pneumonia, gastritis and GERD, history of esophageal ulcer and chronic coccyx wound who presents to the ER for evaluation of open sore to his rectum. There was concern for necrosis per Dr. Ornelas from [facility] which is where he resides. Patient is very poor historian and can only answer yes no questions but is not very reliable. According to the staff at [facility] patient also has been having issues with difficulty eating and drinking as of recently. He is ?having trouble keeping his head 1 position. Nurse reports that he was evaluated for this at another hospital yesterday shows discharged back to [facility]. Patient elicits pain to his rectal area but is unable to answer any other questions. MD elicited complaint: other (Rectal wound) Onset (ago): unknown Pain Consistency: constant Location: other (Rectum) Exacerbating factors: bowel movement Related Data Home Medications Medication Instructions Recorded Confirmed acetaminophen 325 mg tablet 650 mg PO Q4H PRN 08/26/21 08/26/21 diazepam 5 mg tablet 1 tab PO BID PRN 08/26/21 08/26/21 docusate sodium 100 mg capsule 100 mg PO BID 08/26/21 08/26/21 levothyroxine 100 mcg tablet 1 tab PO DAILY 08/26/21 08/26/21 melatonin 3 mg tablet 3 mg PO BEDTIME PRN 08/26/21 08/26/21 mirtazapine 30 mg tablet 1 tab PO DAILY 08/26/21 08/26/21 mirtazapine 7.5 mg tablet 1 tab PO BEDTIME 08/26/21 08/26/21 nystatin 100,000 unit/mL oral 4 ml PO QID 08/26/21 08/26/21 suspension pantoprazole 40 mg tablet,delayed 80 mg PO DAILY 08/26/21 08/26/21 release peg 400-propylene glycol 0.4 %-0.3 1 drp OPHTHALMIC (EYE) TID PRN 08/26/21 08/26/21 % eye drops (Systane Ultra) perphenazine 2 mg tablet 1 tab PO DAILY 08/26/21 08/26/21 perphenazine 4 mg tablet 1 tab PO DAILY 08/26/21 08/26/21 thiamine HCl (vitamin B1) 100 mg 100 mg PO DAILY 08/26/21 08/26/21 tablet Allergies Allergy/AdvReac Type Severity Reaction Status Date / Time tuberculin, purified protein Allergy Unknown UNKNOWN Verified 04/30/21 04:51 deriva [TUBERCULIN,PURIF.PROT.DERIV.] Review of Systems Review of Systems Yes Unobtainable due to mental condition and Unobtainable due to mental status Physical Exam Vital Signs: Vital Signs: Last Vital Signs Temp 98.2 F 08/26/21 16:18 Pulse 86 08/26/21 16:18 Resp 20 08/26/21 16:18 BP 156/75 H 08/26/21 16:18 Pulse Ox 98 08/26/21 16:18 BMI result Body Mass Index 18.5 Appearance: Alert elderly male with tremors. Eyes: Pupils equal, round and reactive to light. ENT: Pharynx normal. Neck: Normal inspection. Neck supple. CVS: Normal heart rate and rhythm. Pulses normal. Respiratory: No respiratory distress. Breath sounds normal. Abdomen: Soft and nontender. +BS x4 Rectal: rectal chicas with diffuse yellowing with thick plaques, with areas of dark black concerning for necrosis. brown stool cleared externally. Skin: Skin warm and dry. Normal skin color. Normal skin turgor. No rashes. Extremities: No lower extremity edema. Neuro: awake, alert, involuntary tremors, left sided neglect, unintelligible speech, does not follow commands consistently. Course Course Course Narrative: 76 y/o male presenting for evaluation of rectal necrosis per [facility]. Unknown duration. Very difficultly to obtain history. Concern for possible rectal abscess, ?fistula. Will get labs and CT scan for further evaluation. Reevaluation(s) Reevaluation #1: No leukocytosis. Lactic acid is normal. CT scan is still pending. Per nursing report it is unclear degree of left sided neglect that is his baseline. They do report his garbled speech is baseline however. His dysphagia is worsening per report. Will get CT head as well to assess for subacute stroke. Reevaluation #2: CT abd showing mild mural wall thickening of the rectum and sigmoid rectal junction, nonspecific. Moderate constipation. Dr. Myers came and evaluated the bedside - concern for possible necrosis. Recommend antibiotics for now and GI consult. Will plan to admit to medicine for further evaluation. MDM - Abdominal Pain Lab Data Result diagrams: 08/26/21 13:08 08/26/21 13:08 Labs: Lab Results 08/26/21 08/26/21 08/26/21 Range/Units 13:08 13:08 13:08 WBC 8.7 (4.8-10.8) X10*3/uL RBC 3.79 L (4.60-5.80) X10*6/uL Hgb 10.2 L (14.0-18.0) g/dl Hct 33.1 L (42.0-52.0) % MCV 87.3 (80.0-98.0) fL MCH 26.9 L (27.0-33.0) pg MCHC 30.8 L (31.0-36.0) g/dl RDW 16.3 H (11.0-16.0) % Plt Count 662 H (160-400) X10*3/uL MPV 8.4 L (9.4-12.4) fL Immature Gran % (Auto) 0.6 H (0.0-0.4) % Neut % (Auto) 79.4 H (45-73) % Lymph % (Auto) 8.4 L (20-40) % [place] % (Auto) 9.1 (2-11) % Eos % (Auto) 2.2 (0-4) % Baso % (Auto) 0.3 (0-2) % Lymph # (Auto) 0.7 L (1.2-4.9) X10*3/uL [place] # (Auto) 0.8 (0.1-1.2) X10*3/uL Eos # (Auto) 0.2 (0.0-0.4) X10*3/uL Baso # (Auto) 0.0 (0.0-0.2) X10*3/uL Abs Immat Gran (auto) 0.05 H (0.00-0.03) X10*3/uL Absolute Neuts (auto) 6.9 (2.0-8.3) x10*3/uL Absolute Nucleated RBC 0.000 (0.0-0.012) X10*3/uL Nucleated RBC % (auto) 0.0 (0.0-0.2) /100WBC PT 12.1 (9.9-13.0) SEC INR 1.1 (0.9-1.1) APTT 36.6 (24.1-38.0) SEC Sodium 141 (135-145) mmol/L Potassium 4.8 (3.3-5.1) mmol/L Chloride 109 H (96-108) mmol/L Carbon Dioxide 24 (22-29) mmol/L Anion Gap 13 (12-20) BUN 12 (9-16) mg/dL Creatinine 0.78 (0.5-1.4) mg/dL Estim Creat Clear Calc 70.8 Estimated GFR > 60 Random Glucose 95 (60-115) mg/dL Lactic Acid (0.5-2.0) mmol/L Calcium 8.5 (8.4-10.2) mg/dL Magnesium 2.2 (1.6-2.6) mg/dL Total Bilirubin 0.4 (0.0-1.0) mg/dL Direct Bilirubin < 0.2 (0.0-0.5) mg/dL AST 19 (5-37) U/L ALT 13 (0-40) U/L Alkaline Phosphatase 72 (39-117) U/L Total Protein 6.0 L (6.5-8.0) g/dL Albumin 3.1 L (3.5-5.0) g/dL Urine Color Urine Appearance Urine pH (5.0-8.0) Ur Specific [place] (1.005-1.025) Urine Protein (NEG-TRACE) MG/DL Urine Glucose (UA) (NEG) MG/DL Urine Ketones (NEG) MG/DL Urine Blood (NEG) Urine Nitrite (NEG) Ur Leukocyte Esterase (NEG) COVID-19 (KATELIN) (Negative) COVID-19 Clin Com 08/26/21 08/26/21 08/26/21 Range/Units 13:08 13:08 15:26 WBC (4.8-10.8) X10*3/uL RBC (4.60-5.80) X10*6/uL Hgb (14.0-18.0) g/dl Hct (42.0-52.0) % MCV (80.0-98.0) fL MCH (27.0-33.0) pg MCHC (31.0-36.0) g/dl RDW (11.0-16.0) % Plt Count (160-400) X10*3/uL MPV (9.4-12.4) fL Immature Gran % (Auto) (0.0-0.4) % Neut % (Auto) (45-73) % Lymph % (Auto) (20-40) % [place] % (Auto) (2-11) % Eos % (Auto) (0-4) % Baso % (Auto) (0-2) % Lymph # (Auto) (1.2-4.9) X10*3/uL [place] # (Auto) (0.1-1.2) X10*3/uL Eos # (Auto) (0.0-0.4) X10*3/uL Baso # (Auto) (0.0-0.2) X10*3/uL Abs Immat Gran (auto) (0.00-0.03) X10*3/uL Absolute Neuts (auto) (2.0-8.3) x10*3/uL Absolute Nucleated RBC (0.0-0.012) X10*3/uL Nucleated RBC % (auto) (0.0-0.2) /100WBC PT (9.9-13.0) SEC INR (0.9-1.1) APTT (24.1-38.0) SEC Sodium (135-145) mmol/L Potassium (3.3-5.1) mmol/L Chloride (96-108) mmol/L Carbon Dioxide (22-29) mmol/L Anion Gap (12-20) BUN (9-16) mg/dL Creatinine (0.5-1.4) mg/dL Estim Creat Clear Calc Estimated GFR Random Glucose (60-115) mg/dL Lactic Acid 1.0 (0.5-2.0) mmol/L Calcium (8.4-10.2) mg/dL Magnesium (1.6-2.6) mg/dL Total Bilirubin (0.0-1.0) mg/dL Direct Bilirubin (0.0-0.5) mg/dL AST (5-37) U/L ALT (0-40) U/L Alkaline Phosphatase (39-117) U/L Total Protein (6.5-8.0) g/dL Albumin (3.5-5.0) g/dL Urine Color YELLOW Urine Appearance CLEAR Urine pH 6.5 (5.0-8.0) Ur Specific [place] 1.015 (1.005-1.025) Urine Protein NEG (NEG-TRACE) MG/DL Urine Glucose (UA) NEG (NEG) MG/DL Urine Ketones NEG (NEG) MG/DL Urine Blood NEG (NEG) Urine Nitrite NEG (NEG) Ur Leukocyte Esterase NEG (NEG) COVID-19 (KATELIN) Negative (Negative) COVID-19 Clin Com See Note Critical Care Time Critical Care Time Critical Care Time: Yes Total Critical Care Time: 38 Attestation: I have personally provided critical care time exclusive of time spent on separately billable procedures. Time includes review of lab data, radiology results, discussion with consultants, and monitoring for potential decompensation. Intervention performed as documented. Discharge Plan Discharge Clinical Impression: Proctitis, Rectal cellulitis Patient Disposition: Admitted As Inpatient [facility] Past Medical History Medical History Dysarthria and anarthria Hypothyroidism Schizoaffective disorder Unsteadiness on feet Social History Social History Alcohol intake: never Advance Directives: Yes Advance Directives on File: Yes Advance Directives Date on File: 10/03/20
--- NOTE | 2021-08-26 13:15 | PC.NURSE ---
Pt is alert and oriented to self. Pt difficult to understand d/t mumbled speech. Appears to be leaning to left and not using left arm when rolled to side. [facility] called and spoke to SMOG TECHNICIAN who states this is not pts baseline and pt last seen normal yesterday. Pt was also sent out yesterday for concerns noted. Lanny GRIFFITH aware, plan for head CT. Pt cleaned and repositioned on right side. skin hot and dry, will hold rectal temp d/t ?necrotic rectum at this time.
[2021-08-26 13:19] LABS: MANUAL DIFF FLAG NO
[2021-08-26 13:20] LABS: Basophils Percent Auto 0.3 % (0-2); Eosinophils Absolute Auto 0.2 X10*3/uL (0.0-0.4); Eosinophils Percent Auto 2.2 % (0-4); Hematocrit 33.1 % (42.0-52.0); Hemoglobin 10.2 g/dl (14.0-18.0); Imm Gran Abs Auto 0.05 X10*3/uL (0.00-0.03); Imm Gran Pct Auto 0.6 % (0.0-0.4); Lymphocytes Absolute Auto 0.7 X10*3/uL (1.2-4.9); Lymphocytes Percent Auto 8.4 % (20-40); Mean Corpuscular HGB Conc 30.8 g/dl (31.0-36.0); Mean Corpuscular Hemoglobin 26.9 pg (27.0-33.0); Mean Corpuscular Volume 87.3 fL (80.0-98.0); Mean Platelet Volume 8.4 fL (9.4-12.4); Monocytes Absolute Auto 0.8 X10*3/uL (0.1-1.2); Monocytes Percent Auto 9.1 % (2-11); Neutrophils Absolute Auto 6.9 x10*3/uL (2.0-8.3); Neutrophils Percent Auto 79.4 % (45-73); Platelet Count 662 X10*3/uL (160-400); Red Blood Count 3.79 X10*6/uL (4.60-5.80); Red Cell Distribution Width 16.3 % (11.0-16.0); White Blood Count 8.7 X10*3/uL (4.8-10.8)
[2021-08-26 13:26] LABS: INTERNATIONAL NORM RATIO 1.1 (0.9-1.1); Prothrombin Time 12.1 SEC (9.9-13.0)
[2021-08-26 13:29] LABS: Partial Thromboplastin Time 36.6 SEC (24.1-38.0)
[2021-08-26 13:39] LABS: COVID-19 Test Negative (Negative)
[2021-08-26 13:41] LABS: Alanine Aminotransferase 13 U/L (0-40); Albumin Level 3.1 g/dL (3.5-5.0); Alkaline Phosphatase 72 U/L (39-117); Anion Gap 13 (12-20); Aspartate Amino Transferase 19 U/L (5-37); Bilirubin Direct < 0.2 mg/dL (0.0-0.5); Bilirubin Total 0.4 mg/dL (0.0-1.0); Blood Urea Nitrogen 12 mg/dL (9-16); Calcium 8.5 mg/dL (8.4-10.2); Carbon Dioxide 24 mmol/L (22-29); Chloride 109 mmol/L (96-108); Creatinine Clr Calc Pharmacy 70.8; Estimated Glomerular Filt Rate > 60; Glucose Random 95 mg/dL (60-115); Magnesium 2.2 mg/dL (1.6-2.6); Potassium 4.8 mmol/L (3.3-5.1); Sodium 141 mmol/L (135-145)
[2021-08-26] MEDS: Piperacillin Sodium/Tazobactam 3.375 GM in 0.9 % Sodium Chloride 50 ML IV ×2 (13:45→20:14)
[2021-08-26] MEDS: 0.9 % Sodium Chloride 1,000 ML 999 ML IVCONT (13:46)
--- NOTE | 2021-08-26 14:01 | PHA.MEDREC ---
Pharmacy Consult ? Medication Reconciliation Pharmacy has completed the medication reconciliation.
[2021-08-26] MEDS: iohexoL 350 MG/ML 100 ML INFUS..BTL IV (14:44)
[2021-08-26 15:39] LABS: Appearance Urine CLEAR; Color Urine YELLOW; Glucose Urine UA NEG (NEG); Leukocyte Esterase Urine NEG (NEG); Nitrite Urine NEG (NEG); PH 6.5 (5.0-8.0); Specific Gravity - Urine 1.015 (1.005-1.025); Urine Blood NEG (NEG); Urine Ketones NEG (NEG); Urine Protein NEG (NEG-TRACE)
[2021-08-26 16:18] VITALS: BP 156/75; PULSE 86; RESP 20; TEMP 36.8; O2SAT 98
--- NOTE | 2021-08-26 17:16 | P.CONGS_ITS ---
History of Present Illness Consult details Consult date: 08/26/21 Requesting physician: Lanny Segal Narrative: 76-year-old male patient, resident of [facility] presenting for evaluation of rectal wall necrosis. He has a history of schizoaffective disorder, hypertension, GERD, hypothyroidism, stroke, and neck sick brain injury, dysphagia, aspiration pneumonia, gastritis, esophageal ulcers,, and chronic coccyx wound. He is nonverbal and unable to respond to questioning reliably. He was also having problems with dysphagia and keeping his head stable. Patient presented to the emergency department and was noted to have necrosis of the rectal mucosa. Subsequent CT of the abdomen and pelvis revealed mild mural thickening involving the rectum and rectosigmoid junction. No intra- abdominal abscess was identified. There is moderate constipation long with colonic diverticulosis without diverticulitis. ? Review of Systems Review of Systems: Yes Unobtainable due to mental status PMFSH Past Medical History Medical History Dysarthria and anarthria Hypothyroidism Schizoaffective disorder Unsteadiness on feet Social History Social History Alcohol intake: never Advance Directives: Yes Advance Directives on File: Yes Advance Directives Date on File: 10/03/20 Meds Allergies Allergy/AdvReac Type Severity Reaction Status Date / Time tuberculin, purified protein Allergy Unknown UNKNOWN Verified 04/30/21 04:51 deriva [TUBERCULIN,PURIF.PROT.DERIV.] Active Medications: Current Medications Pharmacy Consult (Consult Rx Perform Med Rec) 1 each MISCELLANE ONCE PRN PRN Reason: Consult order Home Medications Medication Instructions Recorded Confirmed Last Taken Type acetaminophen 325 mg tablet 650 mg PO Q4H PRN 08/26/21 08/26/21 Unknown History diazepam 5 mg tablet 1 tab PO BID PRN 08/26/21 08/26/21 Unknown History docusate sodium 100 mg capsule 100 mg PO BID 08/26/21 08/26/21 Unknown History levothyroxine 100 mcg tablet 1 tab PO DAILY 08/26/21 08/26/21 Unknown History melatonin 3 mg tablet 3 mg PO BEDTIME PRN 08/26/21 08/26/21 Unknown History mirtazapine 30 mg tablet 1 tab PO DAILY 08/26/21 08/26/21 Unknown History mirtazapine 7.5 mg tablet 1 tab PO BEDTIME 08/26/21 08/26/21 Unknown History nystatin 100,000 unit/mL oral 4 ml PO QID 08/26/21 08/26/21 Unknown History suspension pantoprazole 40 mg tablet,delayed 80 mg PO DAILY 08/26/21 08/26/21 Unknown History release peg 400-propylene glycol 0.4 %-0.3 1 drp OPHTHALMIC (EYE) TID PRN 08/26/21 08/26/21 Unknown History % eye drops (Systane Ultra) perphenazine 2 mg tablet 1 tab PO DAILY 08/26/21 08/26/21 Unknown History perphenazine 4 mg tablet 1 tab PO DAILY 08/26/21 08/26/21 Unknown History thiamine HCl (vitamin B1) 100 mg 100 mg PO DAILY 08/26/21 08/26/21 Unknown History tablet Physical Exam Vital Signs: Vital Signs: Last Vital Signs Temp 98.2 F 08/26/21 16:18 Pulse 86 08/26/21 16:18 Resp 20 08/26/21 16:18 BP 156/75 H 08/26/21 16:18 Pulse Ox 98 08/26/21 16:18 BMI result Body Mass Index 18.5 Const: Other: Up tended, ill-appearing, tremor involving head Resp: Effort & Inspection: normal respiratory effort, no audible wheezes and no cough GI: Other: rectal examination reveals apparent mucosal necrosis from the anal verge upward. Rectal vault is full stool which is soft. Anal sphincter is intact. There is no apparent tenderness to palpation. No fluctuance is appreciated deep palpation. External anal skin is intact without evidence of erythema to indicate underlying perirectal abscess. Palpation (GI): Soft to palpation, nontender, no guarding, not rigid and hepatosplenomegaly present Skin: General skin exam: no rashes or lesions noted Extrem: General: No edema Results Labs Result diagrams: 08/26/21 13:08 08/26/21 13:08 Labs: Abnormal lab results 08/26/21 08/26/21 Range/Units 13:08 13:08 RBC 3.79 L (4.60-5.80) X10*6/uL Hgb 10.2 L (14.0-18.0) g/dl Hct 33.1 L (42.0-52.0) % MCH 26.9 L (27.0-33.0) pg MCHC 30.8 L (31.0-36.0) g/dl RDW 16.3 H (11.0-16.0) % Plt Count 662 H (160-400) X10*3/uL MPV 8.4 L (9.4-12.4) fL Immature Gran % (Auto) 0.6 H (0.0-0.4) % Neut % (Auto) 79.4 H (45-73) % Lymph % (Auto) 8.4 L (20-40) % Lymph # (Auto) 0.7 L (1.2-4.9) X10*3/uL Abs Immat Gran (auto) 0.05 H (0.00-0.03) X10*3/uL Chloride 109 H (96-108) mmol/L Total Protein 6.0 L (6.5-8.0) g/dL Albumin 3.1 L (3.5-5.0) g/dL Short CBC 08/26/21 Range/Units 13:08 WBC 8.7 (4.8-10.8) X10*3/uL Hgb 10.2 L (14.0-18.0) g/dl Hct 33.1 L (42.0-52.0) % Plt Count 662 H (160-400) X10*3/uL BMP 08/26/21 13:08 Sodium 141 Potassium 4.8 Chloride 109 H Carbon Dioxide 24 BUN 12 Creatinine 0.78 Calcium 8.5 Liver Function 08/26/21 Range/Units 13:08 Total Bilirubin 0.4 (0.0-1.0) mg/dL Direct Bilirubin < 0.2 (0.0-0.5) mg/dL AST 19 (5-37) U/L ALT 13 (0-40) U/L Alkaline Phosphatase 72 (39-117) U/L Albumin 3.1 L (3.5-5.0) g/dL Urine 08/26/21 Range/Units 15:26 Urine Color YELLOW Urine Appearance CLEAR Urine pH 6.5 (5.0-8.0) Ur Specific [place] 1.015 (1.005-1.025) Urine Protein NEG (NEG-TRACE) MG/DL Urine Glucose (UA) NEG (NEG) MG/DL All other labs normal. Assessment and Plan (1) Proctitis: Status: Acute 76-year-old male patient presenting with anal mucosal necrosis of unknown etiology. laboratories revealed normal WBC and CT reveals thickening of the rectosigmoid junction. There is no apparent abscess appreciated. I am uncertain why this anal mucosa necrosis developed, perhaps due to stercoral ulceration or embolic phenomena. It is difficult to tell the extent of the mucosal necrosis and GI consultation may be helpful to examine the mucosa further. This is a local phenomena, observation may be prudent. If there is more extensive necrosis a diverting ostomy may be required. Procedures Date of Service Date of Service: 08/26/21
--- NOTE | 2021-08-26 18:07 | PM.IMHP ---
History of Present Illness Date of Service: 08/26/21 Attending physician on admission: Nick Pickett Chief Complaint: Rectal ulceration 76-year-old male resident of [facility] with past medical history significant for schizoaffective disorder, hypertension, GERD, hypothyroidism, anoxic brain injury, history of TIA, history of pneumonitis, dysphagia was sent to [facility] for evaluation of rectal ulcer, patient unable to provide meaningful history, as per ED physician and nodes from nursing facility patient noted to have difficulty with eating and drinking due to head Tremors, workup in the emergency room showed normal WBC count, stable electrolytes and vitals, CT abdomen and pelvis showed mural wall thickening of the rectum and sigmoid rectal junction seems nonspecific and moderate constipation CT of head showed no acute stroke patient evaluated in the emergency room by Dr. Myers from General surgery, on rectal examination patient noted to have anal mucosal necrosis, no purulent drainage noted he feels that it seems local and recommend flex sigmoidoscopy to examine the mucosa further, if more extensive necrosis is noted then diverting ostomy can be considered. Patient will be admitted to medical floor at present he seems hemodynamically stable and not in acute distress. Review of Systems Review of Systems: Unable to obtain due to underlying psychiatric history PMFSH Medical History Dysarthria and anarthria Hypothyroidism Schizoaffective disorder Unsteadiness on feet Pertinent family history: Unable to obtain due to significant psych history, [facility]. Social History Alcohol intake: never Advance Directives: Yes Advance Directives on File: Yes Advance Directives Date on File: 10/03/20 Meds Allergies Allergy/AdvReac Type Severity Reaction Status Date / Time tuberculin, purified protein Allergy Unknown UNKNOWN Verified 04/30/21 04:51 deriva [TUBERCULIN,PURIF.PROT.DERIV.] Active Medications: Current Medications Acetaminophen (Acetaminophen 325 Mg Tablet) 650 mg PO Q6H PRN PRN Reason: Pain, Mild (Pain Scale 1-3) Diazepam (Diazepam 5 Mg Tablet) 5 mg PO BID PRN PRN Reason: Anxiety Docusate Sodium (Docusate Sodium 100 Mg Capsule) 100 mg PO BID KENNY Piperacillin Sod/Tazobactam (Sod 3.375 gm/ Sodium Chloride) 50 mls @ 100 mls/hr IV Q6H [facility] Levothyroxine Sodium (Levothyroxine Sodium 100 Mcg Tablet) 100 mcg PO DAILY@0600 [facility] Melatonin (Melatonin 3 Mg Tablet) 3 mg PO BEDTIME PRN PRN Reason: Insomnia Mirtazapine (Mirtazapine 7.5 Mg Tablet) 7.5 mg PO BEDTIME [facility] Mirtazapine (Mirtazapine 30 Mg Tablet) 30 mg PO DAILY [facility] Ondansetron HCl (Ondansetron Hcl 4 Mg/2 Ml Vial) 4 mg IVPUSH Q8H PRN PRN Reason: Nausea and Vomiting Perphenazine (Perphenazine 2 Mg Tablet) 2 mg PO DAILY [facility] Perphenazine (Perphenazine 4 Mg Tablet) 4 mg PO DAILY [facility] Pharmacy Consult (Consult Rx Perform Med Rec) 1 each MISCELLANE ONCE PRN PRN Reason: Consult order Polyethylene Glycol (Polyethylene Glycol 3350 17 Gm Powd.Pack) 17 gm PO DAILY [facility] Sodium Chloride (0.9 % Sodium Chloride Flush 3 Ml Syringe) 3 ml IVFLUSH QSHIFT [facility] Thiamine HCl (Thiamine Hcl 100 Mg Tablet) 100 mg PO DAILY [facility] Home Medications Medication Instructions Recorded Confirmed Last Taken Type acetaminophen 325 mg tablet 650 mg PO Q4H PRN 08/26/21 08/26/21 Unknown History diazepam 5 mg tablet 1 tab PO BID PRN 08/26/21 08/26/21 Unknown History docusate sodium 100 mg capsule 100 mg PO BID 08/26/21 08/26/21 Unknown History levothyroxine 100 mcg tablet 1 tab PO DAILY 08/26/21 08/26/21 Unknown History melatonin 3 mg tablet 3 mg PO BEDTIME PRN 08/26/21 08/26/21 Unknown History mirtazapine 30 mg tablet 1 tab PO DAILY 08/26/21 08/26/21 Unknown History mirtazapine 7.5 mg tablet 1 tab PO BEDTIME 08/26/21 08/26/21 Unknown History nystatin 100,000 unit/mL oral 4 ml PO QID 08/26/21 08/26/21 Unknown History suspension pantoprazole 40 mg tablet,delayed 80 mg PO DAILY 08/26/21 08/26/21 Unknown History release peg 400-propylene glycol 0.4 %-0.3 1 drp OPHTHALMIC (EYE) TID PRN 08/26/21 08/26/21 Unknown History % eye drops (Systane Ultra) perphenazine 2 mg tablet 1 tab PO DAILY 08/26/21 08/26/21 Unknown History perphenazine 4 mg tablet 1 tab PO DAILY 08/26/21 08/26/21 Unknown History thiamine HCl (vitamin B1) 100 mg 100 mg PO DAILY 08/26/21 08/26/21 Unknown History tablet Physical Exam Vital Signs and Narrative: Vital Signs: Last Vital Signs Temp 98.2 F 08/26/21 16:18 Pulse 86 08/26/21 16:18 Resp 20 08/26/21 16:18 BP 156/75 H 08/26/21 16:18 Pulse Ox 98 08/26/21 16:18 BMI result Body Mass Index 18.5 General awake alert,no acute distress. Neck no JVD. CVS regular rate rhythm, Respiratory lungs clear to auscultation, no respiratory distress, no wheeze, no rhonchi. Gastrointestinal abdomen soft, nontender, bowel sounds audible Extremities no edema. Rectal exam ulceration of anal mucosa with yellow escahar, brown soft stool, no bleeding, no purulent drainage Neuro head tremors, left hand tremors, speech not clear, unable to do complete neuro exam since unable to follow instruction. Skin no rash Psych impaired insight Results Labs CBC and Chem 7: 08/26/21 13:08 08/26/21 13:08 Labs: Laboratory Results - last 24 hr 08/26/21 08/26/21 08/26/21 13:08 13:08 13:08 MCV 87.3 MCH 26.9 L MCHC 30.8 L RDW 16.3 H Plt Count 662 H MPV 8.4 L Immature Gran % (Auto) 0.6 H Neut % (Auto) 79.4 H Lymph % (Auto) 8.4 L [place] % (Auto) 9.1 Eos % (Auto) 2.2 Baso % (Auto) 0.3 Lymph # (Auto) 0.7 L [place] # (Auto) 0.8 Eos # (Auto) 0.2 Baso # (Auto) 0.0 Abs Immat Gran (auto) 0.05 H Absolute Neuts (auto) 6.9 Absolute Nucleated RBC 0.000 Nucleated RBC % (auto) 0.0 PT 12.1 INR 1.1 APTT 36.6 Anion Gap 13 Estim Creat Clear Calc 70.8 Estimated GFR > 60 Random Glucose 95 Lactic Acid Calcium 8.5 Magnesium 2.2 Total Bilirubin 0.4 Direct Bilirubin < 0.2 AST 19 ALT 13 Alkaline Phosphatase 72 Total Protein 6.0 L Albumin 3.1 L Urine Color Urine Appearance Urine pH Ur Specific [place] Urine Protein Urine Glucose (UA) Urine Ketones Urine Blood Urine Nitrite Ur Leukocyte Esterase COVID-19 (KATELIN) COVID-19 Clin Com 08/26/21 08/26/21 08/26/21 13:08 13:08 15:26 MCV MCH MCHC RDW Plt Count MPV Immature Gran % (Auto) Neut % (Auto) Lymph % (Auto) [place] % (Auto) Eos % (Auto) Baso % (Auto) Lymph # (Auto) [place] # (Auto) Eos # (Auto) Baso # (Auto) Abs Immat Gran (auto) Absolute Neuts (auto) Absolute Nucleated RBC Nucleated RBC % (auto) PT INR APTT Anion Gap Estim Creat Clear Calc Estimated GFR Random Glucose Lactic Acid 1.0 Calcium Magnesium Total Bilirubin Direct Bilirubin AST ALT Alkaline Phosphatase Total Protein Albumin Urine Color YELLOW Urine Appearance CLEAR Urine pH 6.5 Ur Specific [place] 1.015 Urine Protein NEG Urine Glucose (UA) NEG Urine Ketones NEG Urine Blood NEG Urine Nitrite NEG Ur Leukocyte Esterase NEG COVID-19 (KATELIN) Negative COVID-19 Clin Com See Note Imaging Radiologist's Impressions: Impressions Abdomen/Pelvis CT 08/26/21 14:42 IMPRESSION: No acute intracranial process seen. Mild mural thickening involving the rectum and sigmoid-rectal junction, nonspecific. No abnormal pelvic, inguinal or retroperitoneal lymph nodes seen. Moderate constipation with colonic diverticulosis without diverticulitis. Degenerative disc changes with vacuum disc phenomena L4-L5 and L5-S1 disc level. There is grade 1 anterolisthesis L4 over L5. Head CT 08/26/21 14:46 IMPRESSION: No acute intracranial process seen. Mild mural thickening involving the rectum and sigmoid-rectal junction, nonspecific. No abnormal pelvic, inguinal or retroperitoneal lymph nodes seen. Moderate constipation with colonic diverticulosis without diverticulitis. Degenerative disc changes with vacuum disc phenomena L4-L5 and L5-S1 disc level. There is grade 1 anterolisthesis L4 over L5. Assessment and Plan (1) Rectal/anal ulcer: Status: Acute (2) Dysphagia: Status: Acute 76-year-old gentleman with past medical history significant for schizoaffective disorder, anoxic brain injury, history of dysphagia and constipation sent to [facility] for evaluation salomon of rectal ulceration. Anal/rectal ulceration Patient afebrile with normal WBC count, likely has stercoral ulceration with history of constipation, no underlying history of arrhythmia, no atrial fibrillation Will treat constipation, follow 2 set of blood cultures continue IV antibiotics started in the emergency room Will discuss need for Proctoscopy versus sigmoid colonoscopy with General surgery at a.m. Dysphagia Continue pureed diet with mildly thickened liquid Head tremor Question acute versus chronic will discuss with primary care physician at a.m., if acute can be dystonic movement related to antipsychotic medication. Schizoaffective disorder Continue home medication Hypothyroidism Check TSH, continue home medication DVT prophylaxis Will placed on Lovenox subQ Quality Stroke Does the patient have a stroke diagnosis?: No VTE Prior VTE?: No VTE Risk Level:: Medical - moderate - high VTE Device Contraindication: Treatment Not Indicated VTE Drug Contraindication: N/A - Med Ordered
[2021-08-26 18:48] LABS: Thyroid Stimulating Hormone 1.92 uIU/mL (0.32-4.0)
[2021-08-26] MEDS: Lactulose 20 GM/30 ML SOLUTION 10 GM PO (20:14)
[2021-08-26 20:19] VITALS: BP 119/71; PULSE 83; RESP 18; O2SAT 94
[2021-08-26] MEDS: Docusate Sodium 100 MG CAPSULE PO (22:16)
[2021-08-26] MEDS: Mirtazapine 7.5 MG TABLET PO (22:16)
[2021-08-26 22:17] VITALS: BP 107/80; PULSE 83; RESP 20; O2SAT 92
[2021-08-27] VITALS (8 sets, daily range): BP systolic 113–150; BP diastolic 53–70; PULSE 81–96; RESP 16–18; TEMP 36.1–37.5; O2SAT 94–99; BMI 18.5
[2021-08-27] MEDS: Piperacillin Sodium/Tazobactam 3.375 GM in 0.9 % Sodium Chloride 50 ML IV ×3 (02:59→20:59)
[2021-08-27] MEDS: Omeprazole 40 MG CAPSULE.DR PO (05:32)
[2021-08-27] MEDS: Levothyroxine Sodium 100 MCG TABLET PO (05:32)
--- NOTE | 2021-08-27 07:45 | PC.NURSE ---
Pt cleaned and repositioned for stool and urine incontinence
--- NOTE | 2021-08-27 09:10 | MHC.CM.PN ---
pt is from [facility]. dc plan is to return there when medically stable. [facility] to transport. a ref. to this facility has been made. cm to cont. to follow.
--- NOTE | 2021-08-27 09:13 | PC.NURSE ---
Report given to [facility]
--- NOTE | 2021-08-27 09:44 | PC.NURSE ---
Skin/Wound assessment completed today. Patient has a small stage 2 pressure ulcer to sacrum-Woundres' gel applied covered with Tegaderm. Patient also has a necrotic rectal ulcer with necrotic sloughy tissue and strong odor. Left open to air. Surgery and GI consult placed. No other skin issues noted at this time.
[2021-08-27] MEDS: 0.9 % Sodium Chloride Flush 3 ML SYRINGE IVFLUSH ×3 (10:12→20:59)
[2021-08-27] MEDS: polyethylene glycoL 3350 17 GM POWD.PACK PO (10:13)
[2021-08-27] MEDS: Perphenazine 2 MG TABLET PO (10:13)
[2021-08-27] MEDS: Perphenazine 4 MG TABLET PO (10:13)
[2021-08-27] MEDS: Thiamine HCL 100 MG TABLET PO (10:13)
--- NOTE | 2021-08-27 11:04 | MHC.CLN ---
RE: CONSULT PT IS SEVERELY MALNOURISHED PT WITH 23% SIGNIFICANT WT LOSS X 1 YEAR WITH CHRONIC POOR PO INTAKE <50% X 1 MONTH R/T HEAD TREMOR AND BMI 18.5 PREVIOUS WT HX REVEALS: 78.9KG (09/13/2020) 23% SIGNIFICANT WT LOSS X 1 YEAR 74.1KG (10/02/20) DIET RX: PUREED-APPROPRIATE RECOMMEND ADDING ENSURE TID AND OMAIRA BID TO INCREASE KCALS AND PROMOTE WOUND HEALING SUPPS TO PROVIDE 1210KCALS, 44G PROTEIN PT WITH INCREASED NUTRITION NEEDS R/T PRESSURE INJURIES MONITOR PO INTAKE CLOSELY SEE ALSO CLINICAL NUTRITION ASSESSMENT
--- NOTE | 2021-08-27 11:13 | P.PNIM_ITS ---
Subjective Subjective Date of Service: 08/27/21 Interval History: Being followed for rectal ulcer unable to obtain meaningful history due to underlying psychiatric history and history of anoxic brain injury history Review of Systems Unable to obtain review of systems as above Physical Exam Vital Signs: Vital Signs: Last Vital Signs Temp 97.5 F 08/27/21 09:46 Pulse 81 08/27/21 09:46 Resp 18 08/27/21 09:46 BP 136/66 08/27/21 09:46 Pulse Ox 99 08/27/21 09:46 BMI result Body Mass Index 18.5 General awake aler t,no acute distres s.? Neck no JVD. C VS? regular rate r hythm, Respiratory lungs clear to au scultation, no res piratory distress, no wheeze, no rho nchi. Gastrointest inal abdomen soft, nontender, bowel sounds audible Ext remities no edema. Rectal exam ulcer ation of anal muco sa with yellow esc ahar, no bleeding, no drainage Neuro head tremors, rep etitive tongue mov ement, left hand t remors, speech not clear, unable to do complete neuro exam since unable to follow instruct ion. Skin no rash Psych impaired ins ight Objective Data Active Medications Acetaminophen (Acetaminophen 325 Mg Tablet) 650 mg PO Q6H PRN PRN Reason: Pain, Mild (Pain Scale 1-3) Diazepam (Diazepam 5 Mg Tablet) 5 mg PO BID PRN PRN Reason: Anxiety Docusate Sodium (Docusate Sodium 100 Mg Capsule) 100 mg PO BID [facility] Last Admin: 08/27/21 10:34 Dose: Not Given Documented by: TERESSA Non-Admin Reason: unable Enoxaparin Sodium (Enoxaparin Sodium 40 Mg/0.4 Ml Syringe) 40 mg SUBCUT Q24H [facility] Piperacillin Sod/Tazobactam (Sod 3.375 gm/ Sodium Chloride) 50 mls @ 100 mls/hr IV Q6H [facility] Last Infusion: 08/27/21 10:53 Dose: 0 mls/hr Documented by: TERESSA Levothyroxine Sodium (Levothyroxine Sodium 100 Mcg Tablet) 100 mcg PO DAILY@0600 [facility] Last Admin: 08/27/21 05:32 Dose: 100 mcg Documented by: VICTOR M Melatonin (Melatonin 3 Mg Tablet) 3 mg PO BEDTIME PRN PRN Reason: Insomnia Mirtazapine (Mirtazapine 7.5 Mg Tablet) 7.5 mg PO BEDTIME [facility] Last Admin: 08/26/21 22:16 Dose: 7.5 mg Documented by: VICTOR M Mirtazapine (Mirtazapine 30 Mg Tablet) 30 mg PO DAILY [facility] Omeprazole (Omeprazole 40 Mg Capsule.Dr) 40 mg PO DAILY@0630 [facility] Last Admin: 08/27/21 05:32 Dose: 40 mg Documented by: VICTOR M Ondansetron HCl (Ondansetron Hcl 4 Mg/2 Ml Vial) 4 mg IVPUSH Q8H PRN PRN Reason: Nausea and Vomiting Perphenazine (Perphenazine 2 Mg Tablet) 2 mg PO DAILY [facility] Last Admin: 08/27/21 10:13 Dose: 2 mg Documented by: TERESSA Perphenazine (Perphenazine 4 Mg Tablet) 4 mg PO DAILY [facility] Last Admin: 08/27/21 10:13 Dose: 4 mg Documented by: TERESSA Pharmacy Consult (Consult Rx Perform Med Rec) 1 each MISCELLANE ONCE PRN PRN Reason: Consult order Polyethylene Glycol (Polyethylene Glycol 3350 17 Gm Powd.Pack) 17 gm PO DAILY [facility] Last Admin: 08/27/21 10:13 Dose: 17 gm Documented by: TERESSA Sodium Chloride (0.9 % Sodium Chloride Flush 3 Ml Syringe) 3 ml IVFLUSH QSHIFT [facility] Last Admin: 08/27/21 10:12 Dose: 3 ml Documented by: TERESSA Thiamine HCl (Thiamine Hcl 100 Mg Tablet) 100 mg PO DAILY [facility] Last Admin: 08/27/21 10:13 Dose: 100 mg Documented by: TERESSA Labs CBC & Chem 7: 08/26/21 13:08 08/26/21 13:08 Labs: Laboratory Results - last 24 hr 08/26/21 08/26/21 08/26/21 13:08 13:08 13:08 MCV 87.3 MCH 26.9 L MCHC 30.8 L RDW 16.3 H Plt Count 662 H MPV 8.4 L Immature Gran % (Auto) 0.6 H Neut % (Auto) 79.4 H Lymph % (Auto) 8.4 L [place] % (Auto) 9.1 Eos % (Auto) 2.2 Baso % (Auto) 0.3 Lymph # (Auto) 0.7 L [place] # (Auto) 0.8 Eos # (Auto) 0.2 Baso # (Auto) 0.0 Abs Immat Gran (auto) 0.05 H Absolute Neuts (auto) 6.9 Absolute Nucleated RBC 0.000 Nucleated RBC % (auto) 0.0 PT 12.1 INR 1.1 APTT 36.6 Anion Gap 13 Estim Creat Clear Calc 70.8 Estimated GFR > 60 Random Glucose 95 Lactic Acid Calcium 8.5 Magnesium 2.2 Total Bilirubin 0.4 Direct Bilirubin < 0.2 AST 19 ALT 13 Alkaline Phosphatase 72 Total Protein 6.0 L Albumin 3.1 L TSH 1.92 Urine Color Urine Appearance Urine pH Ur Specific [place] Urine Protein Urine Glucose (UA) Urine Ketones Urine Blood Urine Nitrite Ur Leukocyte Esterase COVID-19 (KATELIN) COVID-19 [employer] [place] 08/26/21 08/26/21 08/26/21 13:08 13:08 15:26 MCV MCH MCHC RDW Plt Count MPV Immature Gran % (Auto) Neut % (Auto) Lymph % (Auto) [place] % (Auto) Eos % (Auto) Baso % (Auto) Lymph # (Auto) [place] # (Auto) Eos # (Auto) Baso # (Auto) Abs Immat Gran (auto) Absolute Neuts (auto) Absolute Nucleated RBC Nucleated RBC % (auto) PT INR APTT Anion Gap Estim Creat Clear Calc Estimated GFR Random Glucose Lactic Acid 1.0 Calcium Magnesium Total Bilirubin Direct Bilirubin AST ALT Alkaline Phosphatase Total Protein Albumin TSH Urine Color YELLOW Urine Appearance CLEAR Urine pH 6.5 Ur Specific [place] 1.015 Urine Protein NEG Urine Glucose (UA) NEG Urine Ketones NEG Urine Blood NEG Urine Nitrite NEG Ur Leukocyte Esterase NEG COVID-19 (KATELIN) Negative COVID-19 Clin Com See Note Microbiology Microbiology Results: Microbiology 08/26/21 18:01 Gram Stain - Final Rectal Swab Routine Culture - Preliminary Assessment and Plan (1) Dysphagia: Status: Acute (2) Rectal/anal ulcer: Status: Acute (3) Rectal cellulitis: Status: Acute Assessment and Plan: 76-year-old gentleman with past medical history significant for schizoaffective disorder, anoxic brain injury, history of dysphagia and constipation sent to [facility] for evaluation salomon of rectal ulceration. Anal/rectal ulceration/necrosis No change in examination, no fevers overnight. normal WBC count, likely has stercoral ulceration with history of constipation, no underlying history of arrhythmia, no atrial fibrillation follow 2 set of blood cultures, continue IV Zosyn day [address] Myers he will to anoscopy Constipation Given 1 dose of lactulose, placed on MiraLax daily continue Colace. Dysphagia Continue pureed diet with mildly thickened liquid Head tremor/repeated of tongue movement Question acute versus chronic , primary care available tomorrow will discuss with him, if acute can be dystonic movement related to antipsychotic medication. Schizoaffective disorder Continue home medication Hypothyroidism TSH 1.92, continue home medication Severe malnutrition supplements added stage II sacral ulcer apply barrier cream frequent position change. DVT prophylaxis Will placed on Lovenox subQ Quality Stroke Does the patient have a stroke diagnosis?: No VTE Prior VTE?: No VTE Risk Level:: Medical - moderate - high VTE Device Contraindication: Treatment Not Indicated VTE Drug Contraindication: N/A - Med Ordered
[2021-08-27] MEDS: Lactulose 20 GM/30 ML SOLUTION PO (13:05)
[2021-08-27] MEDS: Docusate Sodium 100 MG/10 ML LIQUID PO ×2 (13:05→20:58)
--- NOTE | 2021-08-27 13:37 | PM.PNGS ---
Subjective Subjective Date of Service: 08/27/21 Interval history: Patient awake and nonverbal. Physical Exam Vital Signs: Vital Signs: Last Vital Signs Temp 98.3 F 08/27/21 11:29 Pulse 86 08/27/21 11:29 Resp 18 08/27/21 11:29 BP 146/64 H 08/27/21 11:29 Pulse Ox 98 08/27/21 11:29 BMI result Body Mass Index 18.5 Const: General: patient obtunded Nutritional Appearance: thin Orientation/consciousness: patient obtunded Limitations: altered mental status Resp: Other: Loose rhonchi, mild cough, no wheezing GI: Other: Soft, nondistended, nontender, no tympany to percussion, normal bowel sounds. Rectal examination: Stool noted at anal verge, ischemic appearing anal mucosa at the dentate line. Rectal examination revealed soft stool within the vault. Anoscopic examination difficult due to stool burden. Mucosal sloughing appears superficial. Unable to see above anal canal. No tenderness elicited with palpation. No evidence of fluctuance, erythema, purulence discharge. Skin: Other: Warm, dry, no rash Neuro: General: patient obtunded Objective Data Active Medications Acetaminophen (Acetaminophen 325 Mg Tablet) 650 mg PO Q6H PRN PRN Reason: Pain, Mild (Pain Scale 1-3) Diazepam (Diazepam 5 Mg Tablet) 5 mg PO BID PRN PRN Reason: Anxiety Docusate Sodium (Docusate Sodium 100 Mg/10 Ml Liquid) 100 mg PO BID [facility] Last Admin: 08/27/21 13:05 Dose: 100 mg Documented by: TERESSA Enoxaparin Sodium (Enoxaparin Sodium 40 Mg/0.4 Ml Syringe) 40 mg SUBCUT Q24H [facility] Piperacillin Sod/Tazobactam (Sod 3.375 gm/ Sodium Chloride) 50 mls @ 100 mls/hr IV Q6H [facility] Last Infusion: 08/27/21 10:53 Dose: 0 mls/hr Documented by: TERESSA Levothyroxine Sodium (Levothyroxine Sodium 100 Mcg Tablet) 100 mcg PO DAILY@0600 [facility] Last Admin: 08/27/21 05:32 Dose: 100 mcg Documented by: VICTOR M Melatonin (Melatonin 3 Mg Tablet) 3 mg PO BEDTIME PRN PRN Reason: Insomnia Mirtazapine (Mirtazapine 7.5 Mg Tablet) 7.5 mg PO BEDTIME [facility] Last Admin: 08/26/21 22:16 Dose: 7.5 mg Documented by: VICTOR M Mirtazapine (Mirtazapine 30 Mg Tablet) 30 mg PO DAILY [facility] Last Admin: 08/27/21 13:01 Dose: Not Given Documented by: TERESSA Non-Admin Reason: lethargic Omeprazole (Omeprazole 40 Mg Capsule.Dr) 40 mg PO DAILY@0630 [facility] Last Admin: 08/27/21 05:32 Dose: 40 mg Documented by: VICTOR M Ondansetron HCl (Ondansetron Hcl 4 Mg/2 Ml Vial) 4 mg IVPUSH Q8H PRN PRN Reason: Nausea and Vomiting Perphenazine (Perphenazine 2 Mg Tablet) 2 mg PO DAILY [facility] Last Admin: 08/27/21 10:13 Dose: 2 mg Documented by: TERESSA Perphenazine (Perphenazine 4 Mg Tablet) 4 mg PO DAILY [facility] Last Admin: 08/27/21 10:13 Dose: 4 mg Documented by: TERESSA Pharmacy Consult (Consult Rx Perform Med Rec) 1 each MISCELLANE ONCE PRN PRN Reason: Consult order Polyethylene Glycol (Polyethylene Glycol 3350 17 Gm Powd.Pack) 17 gm PO DAILY [facility] Last Admin: 08/27/21 10:13 Dose: 17 gm Documented by: TERESSA Sodium Chloride (0.9 % Sodium Chloride Flush 3 Ml Syringe) 3 ml IVFLUSH QSHIFT [facility] Last Admin: 08/27/21 10:12 Dose: 3 ml Documented by: TERESSA Thiamine HCl (Thiamine Hcl 100 Mg Tablet) 100 mg PO DAILY [facility] Last Admin: 08/27/21 10:13 Dose: 100 mg Documented by: TERESSA Labs CBC & Chem 7: 08/26/21 13:08 08/26/21 13:08 Labs: Laboratory Results - last 24 hr 08/26/21 08/26/21 08/26/21 13:08 13:08 13:08 Anion Gap 13 Estim Creat Clear Calc 70.8 Estimated GFR > 60 Random Glucose 95 Lactic Acid 1.0 Calcium 8.5 Magnesium 2.2 Total Bilirubin 0.4 Direct Bilirubin < 0.2 AST 19 ALT 13 Alkaline Phosphatase 72 Total Protein 6.0 L Albumin 3.1 L TSH 1.92 Urine Color Urine Appearance Urine pH Ur Specific [place] Urine Protein Urine Glucose (UA) Urine Ketones Urine Blood Urine Nitrite Ur Leukocyte Esterase COVID-19 (KATELIN) Negative COVID-19 Clin Com See Note 08/26/21 15:26 Anion Gap Estim Creat Clear Calc Estimated GFR Random Glucose Lactic Acid Calcium Magnesium Total Bilirubin Direct Bilirubin AST ALT Alkaline Phosphatase Total Protein Albumin TSH Urine Color YELLOW Urine Appearance CLEAR Urine pH 6.5 Ur Specific [place] 1.015 Urine Protein NEG Urine Glucose (UA) NEG Urine Ketones NEG Urine Blood NEG Urine Nitrite NEG Ur Leukocyte Esterase NEG COVID-19 (KATELIN) COVID-19 Clin Com Microbiology Microbiology Results: Microbiology 08/26/21 18:01 Gram Stain - Final Rectal Swab Routine Culture - Preliminary Procedures Date of Service Date of Service: 08/27/21 Progress Note: A&P Assessment and plan (1) Rectal/anal ulcer: Status: Acute (2) Proctitis: Status: Acute Assessment and Plan: 76-year-old male patient with evidence of proctitis, anal ulceration of unknown etiology. Agree with attempts to reduce the stool burden in the rectal vault. Continue IV antibiotics for the probable proctitis. Will continue observation; no surgical intervention recommended at this time. Fall Risk Details Current Medications: Current Medications Acetaminophen (Acetaminophen 325 Mg Tablet) 650 mg PO Q6H PRN PRN Reason: Pain, Mild (Pain Scale 1-3) Diazepam (Diazepam 5 Mg Tablet) 5 mg PO BID PRN PRN Reason: Anxiety Docusate Sodium (Docusate Sodium 100 Mg/10 Ml Liquid) 100 mg PO BID [facility] Last Admin: 08/27/21 13:05 Dose: 100 mg Documented by: Enoxaparin Sodium (Enoxaparin Sodium 40 Mg/0.4 Ml Syringe) 40 mg SUBCUT Q24H [facility] Piperacillin Sod/Tazobactam (Sod 3.375 gm/ Sodium Chloride) 50 mls @ 100 mls/hr IV Q6H [facility] Last Infusion: 08/27/21 10:53 Dose: Infused Documented by: Levothyroxine Sodium (Levothyroxine Sodium 100 Mcg Tablet) 100 mcg PO DAILY@0600 [facility] Last Admin: 08/27/21 05:32 Dose: 100 mcg Documented by: Melatonin (Melatonin 3 Mg Tablet) 3 mg PO BEDTIME PRN PRN Reason: Insomnia Mirtazapine (Mirtazapine 7.5 Mg Tablet) 7.5 mg PO BEDTIME [facility] Last Admin: 08/26/21 22:16 Dose: 7.5 mg Documented by: Mirtazapine (Mirtazapine 30 Mg Tablet) 30 mg PO DAILY [facility] Last Admin: 08/27/21 13:01 Dose: Not Given Documented by: Omeprazole (Omeprazole 40 Mg Capsule.Dr) 40 mg PO DAILY@0630 [facility] Last Admin: 08/27/21 05:32 Dose: 40 mg Documented by: Ondansetron HCl (Ondansetron Hcl 4 Mg/2 Ml Vial) 4 mg IVPUSH Q8H PRN PRN Reason: Nausea and Vomiting Perphenazine (Perphenazine 2 Mg Tablet) 2 mg PO DAILY [facility] Last Admin: 08/27/21 10:13 Dose: 2 mg Documented by: Perphenazine (Perphenazine 4 Mg Tablet) 4 mg PO DAILY [facility] Last Admin: 08/27/21 10:13 Dose: 4 mg Documented by: Pharmacy Consult (Consult Rx Perform Med Rec) 1 each MISCELLANE ONCE PRN PRN Reason: Consult order Polyethylene Glycol (Polyethylene Glycol 3350 17 Gm Powd.Pack) 17 gm PO DAILY [facility] Last Admin: 08/27/21 10:13 Dose: 17 gm Documented by: Sodium Chloride (0.9 % Sodium Chloride Flush 3 Ml Syringe) 3 ml IVFLUSH QSHIFT [facility] Last Admin: 08/27/21 10:12 Dose: 3 ml Documented by: Thiamine HCl (Thiamine Hcl 100 Mg Tablet) 100 mg PO DAILY [facility] Last Admin: 08/27/21 10:13 Dose: 100 mg Documented by: Time Spent With Patient Time: Total time spent is greater than 50% in coordination of care (as documented) at patient's floor/unit and/or counseling patient: Time with patient: 15 - 24 minutes Quality Stroke Does the patient have a stroke diagnosis?: No VTE Prior VTE?: No VTE Risk Level:: Medical - moderate - high VTE Device Contraindication: Treatment Not Indicated VTE Drug Contraindication: N/A - Med Ordered
[2021-08-27] MEDS: Enoxaparin Sodium 40 MG/0.4 ML SYRINGE SUBCUT (20:58)
[2021-08-27] MEDS: Mirtazapine 7.5 MG TABLET PO (20:58)
[2021-08-28] MEDS: Piperacillin Sodium/Tazobactam 3.375 GM in 0.9 % Sodium Chloride 50 ML IV ×2 (01:29→11:06)
[2021-08-28 03:10] VITALS: BP 140/81; PULSE 105; RESP 16; TEMP 36.9; O2SAT 94
[2021-08-28] MEDS: Levothyroxine Sodium 100 MCG TABLET PO (05:49)
[2021-08-28] MEDS: Omeprazole 40 MG CAPSULE.DR PO (05:50)
[2021-08-28 07:29] VITALS: BP 111/69; PULSE 90; RESP 20; TEMP 36.4; O2SAT 96
--- NOTE | 2021-08-28 07:44 | P.PNGS_ITS ---
Subjective Subjective Date of Service: 08/28/21 Interval history: Patient tolerating diet without abdominal distension, nausea, or vomiting. Patient passing bowels flatus. No blood noted. Physical Exam Vital Signs: Vital Signs: Last Vital Signs Temp 97.6 F 08/28/21 07:29 Pulse 90 08/28/21 07:29 Resp 20 08/28/21 07:29 BP 111/69 08/28/21 07:29 Pulse Ox 96 08/28/21 07:29 BMI result Body Mass Index 18.5 Const: General: no acute distress and confusion Nutritional Appearance: thin Orientation/consciousness: confusion Limitations: altered mental status GI: Other: soft, nondistended, nontender, no tympany to percussion. Rectal examination unchanged. Stool at Rectal vault Skin: General skin exam: no rashes or lesions noted Neuro: General: confusion Objective Data Active Medications Acetaminophen (Acetaminophen 325 Mg Tablet) 650 mg PO Q6H PRN PRN Reason: Pain, Mild (Pain Scale 1-3) Diazepam (Diazepam 5 Mg Tablet) 5 mg PO BID PRN PRN Reason: Anxiety Docusate Sodium (Docusate Sodium 100 Mg/10 Ml Liquid) 100 mg PO BID [facility] Last Admin: 08/27/21 20:58 Dose: 100 mg Documented by: LISSETTE Enoxaparin Sodium (Enoxaparin Sodium 40 Mg/0.4 Ml Syringe) 40 mg SUBCUT Q24H [facility] Last Admin: 08/27/21 20:58 Dose: 40 mg Documented by: LISSETTE Piperacillin Sod/Tazobactam (Sod 3.375 gm/ Sodium Chloride) 50 mls @ 100 mls/hr IV Q6H [facility] Last Infusion: 08/28/21 02:10 Dose: 0 mls/hr Documented by: JOAN Levothyroxine Sodium (Levothyroxine Sodium 100 Mcg Tablet) 100 mcg PO DAILY@0600 [facility] Last Admin: 08/28/21 05:49 Dose: 100 mcg Documented by: JOAN Melatonin (Melatonin 3 Mg Tablet) 3 mg PO BEDTIME PRN PRN Reason: Insomnia Mirtazapine (Mirtazapine 7.5 Mg Tablet) 7.5 mg PO BEDTIME [facility] Last Admin: 08/27/21 20:58 Dose: 7.5 mg Documented by: LISSETTE Mirtazapine (Mirtazapine 30 Mg Tablet) 30 mg PO DAILY [facility] Last Admin: 08/27/21 13:01 Dose: Not Given Documented by: TERESSA Non-Admin Reason: lethargic Omeprazole (Omeprazole 40 Mg Capsule.Dr) 40 mg PO DAILY@0630 [facility] Last Admin: 08/28/21 05:50 Dose: 40 mg Documented by: JOAN Ondansetron HCl (Ondansetron Hcl 4 Mg/2 Ml Vial) 4 mg IVPUSH Q8H PRN PRN Reason: Nausea and Vomiting Perphenazine (Perphenazine 2 Mg Tablet) 2 mg PO DAILY [facility] Last Admin: 08/27/21 10:13 Dose: 2 mg Documented by: TERESSA Perphenazine (Perphenazine 4 Mg Tablet) 4 mg PO DAILY [facility] Last Admin: 08/27/21 10:13 Dose: 4 mg Documented by: TERESSA Pharmacy Consult (Consult Rx Perform Med Rec) 1 each MISCELLANE ONCE PRN PRN Reason: Consult order Polyethylene Glycol (Polyethylene Glycol 3350 17 Gm Powd.Pack) 17 gm PO DAILY [facility] Last Admin: 08/27/21 10:13 Dose: 17 gm Documented by: TERESSA Sodium Chloride (0.9 % Sodium Chloride Flush 3 Ml Syringe) 3 ml IVFLUSH QSHIFT [facility] Last Admin: 08/27/21 20:59 Dose: 3 ml Documented by: LISSETTE Thiamine HCl (Thiamine Hcl 100 Mg Tablet) 100 mg PO DAILY [facility] Last Admin: 08/27/21 10:13 Dose: 100 mg Documented by: TERESSA Labs CBC & Chem 7: 08/26/21 13:08 08/26/21 13:08 Microbiology Microbiology Results: Microbiology 08/26/21 13:08 Blood Culture - Preliminary Blood - Venous No growth after 24 hours. 08/26/21 13:10 Blood Culture - Preliminary Blood - Venous No growth after 24 hours. 08/26/21 18:01 Gram Stain - Final Rectal Swab Routine Culture - Preliminary Procedures Date of Service Date of Service: 08/28/21 Progress Note: A&P Assessment and plan (1) Rectal/anal ulcer: Status: Acute (2) Proctitis: Status: Acute Assessment and Plan: 76-year-old male patient with dementia, nonverbal, rectal ulcer of unknown etiology. Patient found to have proctitis by CT. Patient currently on Zosyn IV. Recommended non operative management with bowel regime and antibiotics. Patient not a surgical candidate due to his multiple medical issues , severe dementia. Fall Risk Details Current Medications: Current Medications Acetaminophen (Acetaminophen 325 Mg Tablet) 650 mg PO Q6H PRN PRN Reason: Pain, Mild (Pain Scale 1-3) Diazepam (Diazepam 5 Mg Tablet) 5 mg PO BID PRN PRN Reason: Anxiety Docusate Sodium (Docusate Sodium 100 Mg/10 Ml Liquid) 100 mg PO BID [facility] Last Admin: 08/27/21 20:58 Dose: 100 mg Documented by: Enoxaparin Sodium (Enoxaparin Sodium 40 Mg/0.4 Ml Syringe) 40 mg SUBCUT Q24H [facility] Last Admin: 08/27/21 20:58 Dose: 40 mg Documented by: Piperacillin Sod/Tazobactam (Sod 3.375 gm/ Sodium Chloride) 50 mls @ 100 mls/hr IV Q6H [facility] Last Infusion: 08/28/21 02:10 Dose: Infused Documented by: Levothyroxine Sodium (Levothyroxine Sodium 100 Mcg Tablet) 100 mcg PO DAILY@0600 [facility] Last Admin: 08/28/21 05:49 Dose: 100 mcg Documented by: Melatonin (Melatonin 3 Mg Tablet) 3 mg PO BEDTIME PRN PRN Reason: Insomnia Mirtazapine (Mirtazapine 7.5 Mg Tablet) 7.5 mg PO BEDTIME [facility] Last Admin: 08/27/21 20:58 Dose: 7.5 mg Documented by: Mirtazapine (Mirtazapine 30 Mg Tablet) 30 mg PO DAILY [facility] Last Admin: 08/27/21 13:01 Dose: Not Given Documented by: Omeprazole (Omeprazole 40 Mg Capsule.Dr) 40 mg PO DAILY@0630 [facility] Last Admin: 08/28/21 05:50 Dose: 40 mg Documented by: Ondansetron HCl (Ondansetron Hcl 4 Mg/2 Ml Vial) 4 mg IVPUSH Q8H PRN PRN Reason: Nausea and Vomiting Perphenazine (Perphenazine 2 Mg Tablet) 2 mg PO DAILY [facility] Last Admin: 08/27/21 10:13 Dose: 2 mg Documented by: Perphenazine (Perphenazine 4 Mg Tablet) 4 mg PO DAILY [facility] Last Admin: 08/27/21 10:13 Dose: 4 mg Documented by: Pharmacy Consult (Consult Rx Perform Med Rec) 1 each MISCELLANE ONCE PRN PRN Reason: Consult order Polyethylene Glycol (Polyethylene Glycol 3350 17 Gm Powd.Pack) 17 gm PO DAILY [facility] Last Admin: 08/27/21 10:13 Dose: 17 gm Documented by: Sodium Chloride (0.9 % Sodium Chloride Flush 3 Ml Syringe) 3 ml IVFLUSH QSHIFT [facility] Last Admin: 08/27/21 20:59 Dose: 3 ml Documented by: Thiamine HCl (Thiamine Hcl 100 Mg Tablet) 100 mg PO DAILY [facility] Last Admin: 08/27/21 10:13 Dose: 100 mg Documented by: Time Spent With Patient Time: Total time spent is greater than 50% in coordination of care (as documented) at patient's floor/unit and/or counseling patient: Time with patient: 15 - 24 minutes Quality Stroke Does the patient have a stroke diagnosis?: No VTE Prior VTE?: No VTE Risk Level:: Medical - moderate - high VTE Device Contraindication: Treatment Not Indicated VTE Drug Contraindication: N/A - Med Ordered
--- NOTE | 2021-08-28 10:53 | P.DS_ITS ---
DS: Providers Provider Date of Service: 08/28/21 Date of admission: 08/26/21 17:46 Primary care physician: Sampson Ornelas DO Consults: 08/26/21 17:16 Consult to General Surgery Stat Consulting Provider: Evan Myers Reason for consultation: rectal wall infection, ?necrosis Has provider been notified: Yes DS: Diagnosis Discharge Diagnosis (1) Rectal/anal ulcer: Status: Acute (2) Proctitis: Status: Acute DS: Summary Hospital Course Hospital Course: Chief Complaint: Rectal ulceration 76-year-old male resident of [facility] with past medical history significant for schizoaffective disorder, hypertension, GERD, hypothyroidism, anoxic brain injury, history of TIA, history of pneumonitis, dysphagia was sent to [facility] for evaluation of rectal ulcer, patient unable to provide meaningful history, as per ED physician and nodes from nursing facility patient noted to have difficulty with eating and drinking due to head Tremors, workup in the emergency room showed normal WBC count, stable electrolytes and vitals, CT abdomen and pelvis showed mural wall thickening of the rectum and sigmoid rectal junction seems nonspecific and moderate co nstipation CT of head showed no acute stroke patient evaluated in the emergency room by Dr. Myers from General surgery, on rectal examination patient noted to have anal mucosal necrosis, no purulent drainage noted he feels that it seems local and recommend flex sigmoidoscopy to examine the mucosa further, if more extensive necrosis is noted then diverting ostomy can be considered. Patient will be admitted to medical floor at present he seems hemodynamically stable and not in acute distress. Hospital course 76-year-old gentleman with past medical history significant for schizoaffective disorder, anoxic brain injury, history of dysphagia and constipation sent to [facility] for evaluation of rectal ulceration. Anal/rectal ulceration seems chronic, unknown etiology,no fevers ,normal WBC count, likely has stercoral ulceration with history of constipation, no underlying history of arrhythmia, no atrial fibrillation 2 set of blood cultures negative, CT abdomen all shows old findings consistent with proctitis, patient treated with IV Zosyn and seen by General surgery Dr. Myers?recommended non operative management with bowel regime and antibiotics,he was felt not a surgical candidate due to his multiple medical issues , severe dementia. Since patient hemodynamically stable he will be discharged on by mouth Augmentin for 7 days and recommended bowel regimen to avoid constipation, patient started on MiraLax continue Colace and added lactulose as needed. Dysphagia Continue pureed diet with mildly thickened liquid Head tremor/repeated of tongue movement is discussed with PCP seems chronic. Schizoaffective disorder Continue home medication. Hypothyroidism TSH 1.92, continue home medication Severe malnutrition supplements added stage II sacral ulcer apply barrier cream and frequent position change. Time Spent with Patient Time attestation: Total time spent providing and/or coordinating discharge services: Discharge coordination time: Greater than 30 minutes Quality: Stroke Does the patient have a stroke diagnosis?: No Physical Exam Vital Signs: Vital Signs: Last Vital Signs Temp 97.6 F 08/28/21 07:29 Pulse 90 08/28/21 07:29 Resp 20 08/28/21 07:29 BP 111/69 08/28/21 07:29 Pulse Ox 96 08/28/21 07:29 BMI result Body Mass Index 18.5 General awake alert,no acute distress.? Neck no JVD. CVS? regular rate rhythm, Respiratory?lungs clear to auscultation, no respiratory distress,?no wheeze, no rhonchi. Gastrointestinal abdomen soft,?nontender, bowelsounds audible Extremities no edema. Rectal exam ulceration of anal mucosa with yellow escahar, no bleeding,?no drainage Neuro?head tremors, repetitive tongue movement, left hand tremors, speech not?clear, unable todo complete neuroexam since unableto follow instruction. Skin no rash/stage 2 sacral ulcer DS: Data Data Completed and Pending Labs on day of discharge: Preliminary micro results at discharge 08/26/21 13:08 Blood Culture - Preliminary Blood - Venous No growth after 24 hours. 08/26/21 13:10 Blood Culture - Preliminary Blood - Venous No growth after 24 hours. Discharge Plan Discharge Patient Disposition: Xfer [facility] Discharge Diagnosis: Proctitis Rectal ulcer Referrals: Sampson Ornelas DO [Primary Care Provider] - 1 Week Discharge Medications: New amoxicillin-pot clavulanate [Augmentin] 875-125 mg tablet 1 tab PO BID Qty: 14 RF: 0 polyethylene glycol 3350 17 gram Powder In Packet 17 g PO DAILY Qty: 30 RF: 0 Continued nystatin 100,000 unit/mL Suspension 4 ml PO QID RF: 0 acetaminophen 325 mg Tablet 650 mg PO Q4H PRN (Reason: Pain) RF: 0 perphenazine 2 mg tablet 1 tab PO DAILY RF: 0 thiamine HCl (vitamin B1) 100 mg Tablet 100 mg PO DAILY RF: 0 melatonin 3 mg Tablet 3 mg PO BEDTIME PRN (Reason: Insomnia) RF: 0 levothyroxine 100 mcg tablet 1 tab PO DAILY RF: 0 pantoprazole 40 mg Tablet,Delayed Release (Dr/Ec) 80 mg PO DAILY RF: 0 mirtazapine 30 mg tablet 1 tab PO DAILY RF: 0 perphenazine 4 mg tablet 1 tab PO DAILY RF: 0 docusate sodium 100 mg Capsule 100 mg PO BID RF: 0 diazepam 5 mg tablet 1 tab PO BID PRN (Reason: Anxiety) RF: 0 Systane Ultra 0.4-0.3 % Drops 1 drp OPHTHALMIC (EYE) TID PRN (Reason: Dry Eyes) RF: 0 mirtazapine 7.5 mg tablet 1 tab PO BEDTIME RF: 0 Discharge Orders: Discharge Order (Routine); Ordered 08/28/21 Ordered By: Nick Pickett Diet: advance to usual diet Activity on Discharge: As tolerated Stand Alone Forms: Patient Portal Discharge page Care Plan Goals: Proctitis take by mouth antibiotic for 1 week, avoid constipation take MiraLax and Colace daily if no bowel movement in 2 days use as needed lactulose Health Concerns: Continue all home medication Plan of Treatment: Outpatient follow-up with primary care physician in 1 Assessment: As above
[2021-08-28] MEDS: Docusate Sodium 100 MG/10 ML LIQUID PO (11:06)
[2021-08-28] MEDS: 0.9 % Sodium Chloride Flush 3 ML SYRINGE IVFLUSH (11:06)
[2021-08-28] MEDS: Mirtazapine 30 MG TABLET PO (11:07)
[2021-08-28] MEDS: Perphenazine 4 MG TABLET PO (11:07)
[2021-08-28] MEDS: polyethylene glycoL 3350 17 GM POWD.PACK PO (11:07)
[2021-08-28] MEDS: Thiamine HCL 100 MG TABLET PO (11:07)
[2021-08-28 11:14] VITALS: BP 123/68; PULSE 100; RESP 20; TEMP 36.6; O2SAT 96
[2021-08-28] MEDS: Perphenazine 2 MG TABLET PO (11:16)
--- NOTE | 2021-08-28 12:43 | MHC.CM.PN ---
PATIENT TO RETURN TO [facility] TODAY FOR [facility]. [PATIENT, BROTHER (WHO CALLED FROM [place]), UNIT, AND RN AWARE OF PLAN.
[2021-08-28 15:10] VITALS: BP 99/67; PULSE 90; RESP 16; TEMP 36.4; O2SAT 96
== END 2021-08-28 17:55 | disposition skilled nursing facility (03) | DRG 393 ==
LOC: HO.ED 17:33 → HO.EDOVER 18:09 → HO.IMC 08-27 07:29 → HO.S3 08-27 22:49
PROVIDERS: Physician Assistant; Admitting Provider Hospitalist; Emergency Provider Emergency Medicine Emergency Medical Services; PCP Hospitalist; Visit Provider Hospitalist
DX: K62.89 Other specified diseases of anus and rectum (principal); E43 Unspecified severe protein-calorie malnutrition; K62.6 Ulcer of anus and rectum; Z68.1 Body mass index [BMI] 19.9 or less, adult; E03.9 Hypothyroidism, unspecified; R13.10 Dysphagia, unspecified; R25.1 Tremor, unspecified; F25.9 Schizoaffective disorder, unspecified; L89.152 Pressure ulcer of sacral region, stage 2; F03.90 Unspecified dementia, unspecified severity, without behavioral disturbance, psychotic disturbance, mood disturbance, and anxiety; K59.00 Constipation, unspecified; Z86.73 Personal history of transient ischemic attack (TIA), and cerebral infarction without residual deficits; K21.9 Gastro-esophageal reflux disease without esophagitis; Z20.822 Contact with and (suspected) exposure to COVID-19; Z79.890 Hormone replacement therapy; Z79.899 Other long term (current) drug therapy
CPT/HCPCS: 36415; 70450; 74177; 80048; 80076; 81003; 83605; 83735; 84443; 85025; 85610; 85730; 87040; 87071; 87205; 87635; 96365; 99285; 99291; J1650; J2543; Q9967

== ENCOUNTER → 2021-09-30 15:36 | Outpatient (BNVA) | payer MEDICARE, MEDICAID, SELFPAY | PROVIDERS: PCP Hospitalist; Referring Provider Hospitalist; Visit Provider Surgery | DX: K62.89 Other specified diseases of anus and rectum (principal); K62.6 Ulcer of anus and rectum | CPT/HCPCS: 99212 ==

== ENCOUNTER 2022-02-07 16:53 | Inpatient (IN) | payer MEDICARE, MEDICAID, SELFPAY ==
[2022-02-07] VITALS (9 sets, daily range): BP systolic 97–170; BP diastolic 68–119; PULSE 79–141; RESP 15–27; TEMP 37–37.4; O2SAT 85–97; BMI 27.3
--- NOTE | ~2022-02-07 | XR_ITS ---
EXAMINATION: XR CHEST CLINICAL INFORMATION: Weakness COMPARISON: Previous chest x-ray most recent April 2021 TECHNIQUE: Frontal view of the chest was obtained. FINDINGS: The cardiac and mediastinal contours are stable. There is atelectasis or small infiltrate at the left lung base. The lungs are otherwise clear. There is no pleural effusion or pneumothorax. There is a skin fold projects over the left upper chest. There are degenerative changes of the spine. XR/XR chest 1V IMPRESSION: Left lower lobe atelectasis or small infiltrate.
--- NOTE | ~2022-02-07 | CT_ITS ---
EXAMINATION: CT HEAD WITHOUT CONTRAST CLINICAL INFORMATION: Acute mental status change COMPARISON: Previous head CT August 2021 TECHNIQUE: Contiguous axial imaging was performed from the skull base to vertex without intravenous administration of contrast. This CT examination was performed using dose optimization techniques as appropriate, variously including the following: *Automated exposure control *Adjustment of mA and/or kV according to patient size (this includes techniques or standardized protocols for targeted exams where dose is matched to indication/reason for exam; i.e. extremities or head) *Use of iterative reconstruction technique DLP: 944 mGy-cm FINDINGS: Exam is limited due to motion artifact. There is no evidence of an extra-axial collection. There is no evidence of intra-axial or extra-axial hemorrhage. Ventricles and extra-axial CSF spaces are prominent suggestive of mild generalized atrophy. There is nonspecific periventricular white matter disease. No mass, mass effect or infarct is seen. Evaluation of the bones is limited due to due to motion artifact. No fracture or bone lesion is seen. CT/CT head/brain wo con IMPRESSION: Limited exam due to motion. No acute findings. Generalized atrophy and nonspecific periventricular white matter disease.
--- NOTE | 2022-02-07 17:35 | ECG_ITS ---
Test Reason : AMS Blood Pressure : / mmHG Vent. Rate : 091 BPM Atrial Rate : 091 BPM P-R Int : 170 ms QRS Dur : 086 ms QT Int : 364 ms P-R-T Axes : 066 -37 029 degrees QTc Int : 447 ms Normal sinus rhythm Left axis deviation Abnormal ECG When compared with ECG of 30-APR-2021 05:06, QRS axis Shifted left Referred By: Abby Alexandra Electronically Signed By:TISH BOWENS
--- NOTE | 2022-02-07 17:38 | ED_ITS ---
HPI - General Adult General Chief complaint: General Medical Stated complaint: ams Time Seen by Provider: 02/07/22 17:29 Source: patient and EMS Mode of arrival: EMS Limitations: no limitations History of Present Illness HPI narrative: 76 yo male with a history of schizoaffective disorder, HTN, GERD, hypothyroidism , history of stroke, anoxic brain injury, dysphagia, aspiration pneumonia, gastritis and GERD, history of esophageal ulcer and chronic coccyx wound here with reports of AMS. Per nursing staff from [facility] patient has been less responsive since waking. He has a baseline TBI and tremor. Per notes sent from nursing staff at [facility] patient has had change in mental status, lack of ability to focus on people talking to him, not responding quickly to questions. Also had a lower blood pressure of 94/88. Patient oriented to self only. No complaints. Related Data Home Medications Medication Instructions Recorded Confirmed acetaminophen 325 mg tablet 650 mg PO Q4H PRN 08/26/21 10/01/21 diazepam 5 mg tablet 1 tab PO BID PRN 08/26/21 10/01/21 docusate sodium 100 mg capsule 100 mg PO BID 08/26/21 10/01/21 levothyroxine 100 mcg tablet 1 tab PO DAILY 08/26/21 10/01/21 melatonin 3 mg tablet 3 mg PO BEDTIME PRN 08/26/21 10/01/21 mirtazapine 30 mg tablet 1 tab PO DAILY 08/26/21 10/01/21 mirtazapine 7.5 mg tablet 1 tab PO BEDTIME 08/26/21 10/01/21 nystatin 100,000 unit/mL oral 4 ml PO QID 08/26/21 10/01/21 suspension pantoprazole 40 mg tablet,delayed 80 mg PO DAILY 08/26/21 10/01/21 release peg 400-propylene glycol 0.4 %-0.3 1 drp OPHTHALMIC (EYE) TID PRN 08/26/21 10/01/21 % eye drops (Systane Ultra) perphenazine 2 mg tablet 1 tab PO DAILY 08/26/21 10/01/21 perphenazine 4 mg tablet 1 tab PO DAILY 08/26/21 08/26/21 thiamine HCl (vitamin B1) 100 mg 100 mg PO DAILY 08/26/21 10/01/21 tablet bisacodyl 10 mg/30 mL enema 10 mg PA DAILY PRN 09/30/21 10/01/21 oxycodone-acetaminophen 5 mg-325 1 tab PO TID PRN 09/30/21 10/01/21 mg tablet sennosides 8.6 mg tablet (Senna 8.6 mg PO DAILY 09/30/21 10/01/21 Laxative) zinc oxide 20 %-menthol 0.45 1 appl TOPICAL BID-QID PRN 09/30/21 10/01/21 %-calamine 2 % topical ointment Previous Rx's Medication Instructions Recorded polyethylene glycol 3350 17 gram 17 g PO DAILY #30 ea 08/28/21 oral powder packet Allergies Allergy/AdvReac Type Severity Reaction Status Date / Time tuberculin, purified protein Allergy Unknown UNKNOWN Verified 02/07/22 17:13 deriva [TUBERCULIN,PURIF.PROT.DERIV.] Review of Systems Review of Systems: Yes Unobtainable due to mental status PMFSH Past Medical History Attestation statement: The following information was validated with the patient. Source: old records reviewed and nursing notes reviewed Medical History Acute gastritis with hemorrhage Anoxic brain damage, not elsewhere classified Candidal stomatitis Constipation, unspecified Degenerative disease of nervous system, unspecified Diaphragmatic hernia without obstruction or gangrene Dysarthria and anarthria Dysphagia Dysphagia, oral phase Dysphagia, oropharyngeal phase Essential (primary) hypertension Gastro-esophageal reflux disease without esophagitis Hypermetropia, unspecified eye Hypothyroidism Muscle weakness (generalized) Nonspecific reaction to tuberculin skin test without active tuberculosis Other gastritis with bleeding Other lack of coordination Other transient cerebral ischemic attacks and related syndromes Other voice and resonance disorders Personal history of COVID-19 Personal history of other diseases of the respiratory system 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 Pneumonitis due to inhalation of food and vomit Preglaucoma, unspecified, unspecified eye Schizoaffective disorder Tinea pedis Ulcer of esophagus with bleeding Unspecified cataract Unsteadiness on feet Social History Social History Household Members: Other Household Members Other:: [facility] resident Housing: Assisted Unable to assess alcohol history related to: Unable to respond Alcohol intake: unknown Patient Tobacco Use Status: Never used Tobacco Use of substances other than those prescribed or required for medical reasons: Unknown Advance Directives: Yes Advance Directives on File: Yes Advance Directives Date on File: 10/03/20 service: No Current occupational status: disabled Physical Exam ED Vital Signs: Vital Signs - 24 hr 02/07/22 17:13 02/07/22 17:39 02/07/22 17:52 Temperature 99.3 F Pulse Rate 141 H 110 H Respiratory Rate 18 27 H Blood Pressure 165/119 H 165/119 H 170/86 H Pulse Oximetry 95 02/07/22 18:31 02/07/22 19:29 02/07/22 19:44 Temperature 98.6 F Pulse Rate 99 89 Respiratory Rate 24 H 24 H Blood Pressure 135/68 Pulse Oximetry 91 L 85 L 02/07/22 19:46 02/07/22 20:06 Temperature Pulse Rate 80 Respiratory Rate 22 H Blood Pressure 125/90 H Pulse Oximetry 92 93 BMI result Body Mass Index 27.3 Const General: alert Orientation/consciousness: oriented to person Limitations: altered mental status HENSC Head: Yes normal to inspection Ears: hearing grossly normal bilaterally General nose exam: Normal external nose present Face and sinus: Yes normal facial exam Mouth: Normal oral and palatal mucosa present Teeth and gingiva: dentition normal Throat: Yes posterior oropharynx normal, Yes tonsils normal and Yes uvula midline Eyes General: appearance normal, both eyes and all related structures Pupils: Equal, round and reactive pupils present Neck Neck: Yes normal visual inspection, Yes full ROM, Yes no lymphadenopathy and Yes no meningeal signs Chest Chest palpation & inspection: normal inspection of the chest Resp Effort & Inspection: normal respiratory effort Auscultation: clear to auscultation bilaterally Cardio Rate: regular rate Rhythm: regular rhythm Peripheral pulses: Peripheral pulses 2+ throughout GI Inspection: Yes normal to inspection Palpation (GI): Soft to palpation and nontender General: Yes no CVA tenderness Back/Spine/Pelvis Back: no CVA tenderness Skin General skin exam: no rashes or lesions noted Neuro Other: +tremor General: oriented to person, moves all extremities, no meningeal signs and Unable to assess gait Cranial nerves: Yes Equal, round and reactive pupils present Gait exam (Neuro): Unable to assess gait Extrem General: Yes normal to inspection, Yes no pedal edema and Yes no calf tenderness Course Course Course Narrative: 76 yo male from [facility] with concern with change in mental status today. On arrival patient oriented to self only. +tremor at baseline. Unable to participate in much of an exam. Follows simple commands, moves all extremities. Blood pressure and heart rate elevated, feels warm to touch. Will check labs, EKG, CXR, CT head, UA, covid/flu screening. Reevaluation(s) Reevaluation #1: Patient hypoxia 88% RA requiring supplemental oxygen. CXR shows LLL infiltrate. At this time infection suspected with patient residing in LTC. Antibiotics ordered. CT head shows no acute finding. Labs/UA unremarkable. Will admit d/t hypoxia. Spoke to Dr Barron who accepted admission. Time: 20:00 Medical Decision Making Medical Records Medical records reviewed: Yes I reviewed the patient's medical records. Lab Data Lab results reviewed: Yes I reviewed the patient's lab results. Result diagrams: 02/07/22 18:48 02/07/22 18:48 Labs: Lab Results 02/07/22 02/07/22 02/07/22 Range/Units 18:48 18:48 18:48 WBC 6.9 (4.8-10.8) X10*3/uL RBC 4.43 L (4.60-5.80) X10*6/uL Hgb 10.7 L (14.0-18.0) g/dl Hct 35.7 L (42.0-52.0) % MCV 80.6 (80.0-98.0) fL MCH 24.2 L (27.0-33.0) pg MCHC 30.0 L (31.0-36.0) g/dl RDW 18.9 H (11.0-16.0) % Plt Count 409 H D (160-400) X10*3/uL MPV 8.4 L (9.4-12.4) fL Immature Gran % (Auto) 0.6 H (0.0-0.4) % Neut % (Auto) 75.8 H (45-73) % Lymph % (Auto) 12.6 L (20-40) % Charlton % (Auto) 8.8 (2-11) % Eos % (Auto) 1.9 (0-4) % Baso % (Auto) 0.3 (0-2) % Lymph # (Auto) 0.9 L (1.2-4.9) X10*3/uL Charlton # (Auto) 0.6 (0.1-1.2) X10*3/uL Eos # (Auto) 0.1 (0.0-0.4) X10*3/uL Baso # (Auto) 0.0 (0.0-0.2) X10*3/uL Abs Immat Gran (auto) 0.04 H (0.00-0.03) X10*3/uL Absolute Neuts (auto) 5.2 (2.0-8.3) x10*3/uL Absolute Nucleated RBC 0.000 (0.0-0.012) X10*3/uL Nucleated RBC % (auto) 0.0 (0.0-0.2) /100WBC PT 11.9 (9.9-13.0) SEC INR 1.0 (0.9-1.1) Sodium 141 (135-145) mmol/L Potassium 3.9 (3.3-5.1) mmol/L Chloride 109 H (96-108) mmol/L Carbon Dioxide 23 (22-29) mmol/L Anion Gap 13 (12-20) BUN 12 (9-16) mg/dL Creatinine 0.70 (0.5-1.4) mg/dL Estim Creat Clear Calc 87.3 Estimated GFR > 60 Random Glucose 97 (60-115) mg/dL Lactic Acid (0.5-2.0) mmol/L Calcium 8.0 L (8.4-10.2) mg/dL Magnesium 1.9 (1.6-2.6) mg/dL Total Bilirubin 0.2 (0.0-1.0) mg/dL Direct Bilirubin < 0.2 (0.0-0.5) mg/dL AST 15 (5-37) U/L ALT 8 (0-40) U/L Alkaline Phosphatase 55 D (39-117) U/L Total Creatine Kinase 129 D (38-174) U/L Troponin I High Sens (<3.5-35.0) ng/L B-Natriuretic Peptide (<100) pg/mL Total Protein 5.8 L (6.5-8.0) g/dL Albumin 3.1 L (3.5-5.0) g/dL Urine Color Urine Appearance Urine pH (5.0-8.0) Ur Specific Gamerco (1.005-1.025) Urine Protein (NEG-TRACE) MG/DL Urine Glucose (UA) (NEG) MG/DL Urine Ketones (NEG) MG/DL Urine Blood (NEG) Urine Nitrite (NEG) Ur Leukocyte Esterase (NEG) COVID-19 (KATELIN) (Negative) COVID-19 Clin Com Influenza Type A (JORGE A) (Negative) Influenza Type B (JORGE A) (Negative) Influenza A & B Note 02/07/22 02/07/22 02/07/22 Range/Units 18:48 18:48 18:48 WBC (4.8-10.8) X10*3/uL RBC (4.60-5.80) X10*6/uL Hgb (14.0-18.0) g/dl Hct (42.0-52.0) % MCV (80.0-98.0) fL MCH (27.0-33.0) pg MCHC (31.0-36.0) g/dl RDW (11.0-16.0) % Plt Count (160-400) X10*3/uL MPV (9.4-12.4) fL Immature Gran % (Auto) (0.0-0.4) % Neut % (Auto) (45-73) % Lymph % (Auto) (20-40) % Charlton % (Auto) (2-11) % Eos % (Auto) (0-4) % Baso % (Auto) (0-2) % Lymph # (Auto) (1.2-4.9) X10*3/uL Charlton # (Auto) (0.1-1.2) X10*3/uL Eos # (Auto) (0.0-0.4) X10*3/uL Baso # (Auto) (0.0-0.2) X10*3/uL Abs Immat Gran (auto) (0.00-0.03) X10*3/uL Absolute Neuts (auto) (2.0-8.3) x10*3/uL Absolute Nucleated RBC (0.0-0.012) X10*3/uL Nucleated RBC % (auto) (0.0-0.2) /100WBC PT (9.9-13.0) SEC INR (0.9-1.1) Sodium (135-145) mmol/L Potassium (3.3-5.1) mmol/L Chloride (96-108) mmol/L Carbon Dioxide (22-29) mmol/L Anion Gap (12-20) BUN (9-16) mg/dL Creatinine (0.5-1.4) mg/dL Estim Creat Clear Calc Estimated GFR Random Glucose (60-115) mg/dL Lactic Acid 1.5 (0.5-2.0) mmol/L Calcium (8.4-10.2) mg/dL Magnesium (1.6-2.6) mg/dL Total Bilirubin (0.0-1.0) mg/dL Direct Bilirubin (0.0-0.5) mg/dL AST (5-37) U/L ALT (0-40) U/L Alkaline Phosphatase (39-117) U/L Total Creatine Kinase (38-174) U/L Troponin I High Sens 8.9 (<3.5-35.0) ng/L B-Natriuretic Peptide 20 (<100) pg/mL Total Protein (6.5-8.0) g/dL Albumin (3.5-5.0) g/dL Urine Color Urine Appearance Urine pH (5.0-8.0) Ur Specific Gamerco (1.005-1.025) Urine Protein (NEG-TRACE) MG/DL Urine Glucose (UA) (NEG) MG/DL Urine Ketones (NEG) MG/DL Urine Blood (NEG) Urine Nitrite (NEG) Ur Leukocyte Esterase (NEG) COVID-19 (KATELIN) (Negative) COVID-19 Clin Com Influenza Type A (JORGE A) (Negative) Influenza Type B (JORGE A) (Negative) Influenza A & B Note 02/07/22 02/07/22 02/07/22 Range/Units 18:48 18:48 19:38 WBC (4.8-10.8) X10*3/uL RBC (4.60-5.80) X10*6/uL Hgb (14.0-18.0) g/dl Hct (42.0-52.0) % MCV (80.0-98.0) fL MCH (27.0-33.0) pg MCHC (31.0-36.0) g/dl RDW (11.0-16.0) % Plt Count (160-400) X10*3/uL MPV (9.4-12.4) fL Immature Gran % (Auto) (0.0-0.4) % Neut % (Auto) (45-73) % Lymph % (Auto) (20-40) % Charlton % (Auto) (2-11) % Eos % (Auto) (0-4) % Baso % (Auto) (0-2) % Lymph # (Auto) (1.2-4.9) X10*3/uL Charlton # (Auto) (0.1-1.2) X10*3/uL Eos # (Auto) (0.0-0.4) X10*3/uL Baso # (Auto) (0.0-0.2) X10*3/uL Abs Immat Gran (auto) (0.00-0.03) X10*3/uL Absolute Neuts (auto) (2.0-8.3) x10*3/uL Absolute Nucleated RBC (0.0-0.012) X10*3/uL Nucleated RBC % (auto) (0.0-0.2) /100WBC PT (9.9-13.0) SEC INR (0.9-1.1) Sodium (135-145) mmol/L Potassium (3.3-5.1) mmol/L Chloride (96-108) mmol/L Carbon Dioxide (22-29) mmol/L Anion Gap (12-20) BUN (9-16) mg/dL Creatinine (0.5-1.4) mg/dL Estim Creat Clear Calc Estimated GFR Random Glucose (60-115) mg/dL Lactic Acid (0.5-2.0) mmol/L Calcium (8.4-10.2) mg/dL Magnesium (1.6-2.6) mg/dL Total Bilirubin (0.0-1.0) mg/dL Direct Bilirubin (0.0-0.5) mg/dL AST (5-37) U/L ALT (0-40) U/L Alkaline Phosphatase (39-117) U/L Total Creatine Kinase (38-174) U/L Troponin I High Sens (<3.5-35.0) ng/L B-Natriuretic Peptide (<100) pg/mL Total Protein (6.5-8.0) g/dL Albumin (3.5-5.0) g/dL Urine Color YELLOW Urine Appearance CLEAR Urine pH 6.0 (5.0-8.0) Ur Specific Gamerco 1.020 (1.005-1.025) Urine Protein NEG (NEG-TRACE) MG/DL Urine Glucose (UA) NEG (NEG) MG/DL Urine Ketones NEG (NEG) MG/DL Urine Blood NEG (NEG) Urine Nitrite NEG (NEG) Ur Leukocyte Esterase NEG (NEG) COVID-19 (KATELIN) Negative (Negative) COVID-19 Clin Com See Note Influenza Type A (JORGE A) Negative (Negative) Influenza Type B (JORGE A) Negative (Negative) Influenza A & B Note See Note Imaging Data CT scan - head: Attestation: I personally reviewed and interpreted this imaging study as follows: Radiologist's impression: FINDINGS: Exam is limited due to motion artifact. There is no evidence of an extra-axial collection. There is no evidence of intra-axial or extra-axial hemorrhage. Ventricles and extra-axial CSF spaces are prominent suggestive of mild generalized atrophy. There is nonspecific periventricular white matter disease. No mass, mass effect or infarct is seen. Evaluation of the bones is limited due to due to motion artifact. No fracture or bone lesion is seen. ? CT/CT head/brain wo con IMPRESSION: Limited exam due to motion. No acute findings. Generalized atrophy and nonspecific periventricular white matter disease. Chest x-ray: Attestation: I personally reviewed and interpreted this imaging study as follows: Radiologist's impression: FINDINGS: The cardiac and mediastinal contours are stable. There is atelectasis or small infiltrate at the left lung base. The lungs are otherwise clear. There is no pleural effusion or pneumothorax. There is a skin fold projects over the left upper chest. There are degenerative changes of the spine. XR/XR chest 1V IMPRESSION: Left lower lobe atelectasis or small infiltrate. ? Discharge Plan Discharge Clinical Impression: Pneumonia, Hypoxia Patient Disposition: Admitted As Inpatient
--- NOTE | 2022-02-07 17:43 | PC.NURSE ---
pt alert and oriented to person, pt answering simple questions with garbled but comprehensible answers. food and drug research scientist applied - sinus tach, hypertensive, query accuracy of bp due to tremor. axillary temp - 99.3. provider in room w pt. XR in room.
[2022-02-07] MEDS: 0.9 % Sodium Chloride 1,000 ML 999 ML IV (18:30)
[2022-02-07] MEDS: cefTRIAXone sodium 1 GM in 0.9 % Sodium Chloride 50 ML IV (18:56)
--- NOTE | 2022-02-07 18:56 | PC.NURSE ---
labs/cultures drawn, 20 G IV placed r forearm, IVF started, medicated per provider order. rectal temp obtained 98.6. attempted to straight cath pt for urine sampe, unable to obtain. condom cath applied.
[2022-02-07 18:58] LABS: MANUAL DIFF FLAG NO
[2022-02-07 19:04] LABS: Basophils Percent Auto 0.3 % (0-2); Eosinophils Absolute Auto 0.1 X10*3/uL (0.0-0.4); Eosinophils Percent Auto 1.9 % (0-4); Hematocrit 35.7 % (42.0-52.0); Hemoglobin 10.7 g/dl (14.0-18.0); Imm Gran Abs Auto 0.04 X10*3/uL (0.00-0.03); Imm Gran Pct Auto 0.6 % (0.0-0.4); Lymphocytes Absolute Auto 0.9 X10*3/uL (1.2-4.9); Lymphocytes Percent Auto 12.6 % (20-40); Mean Corpuscular Hemoglobin 24.2 pg (27.0-33.0); Mean Corpuscular Volume 80.6 fL (80.0-98.0); Mean Platelet Volume 8.4 fL (9.4-12.4); Monocytes Absolute Auto 0.6 X10*3/uL (0.1-1.2); Monocytes Percent Auto 8.8 % (2-11); Neutrophils Absolute Auto 5.2 x10*3/uL (2.0-8.3); Neutrophils Percent Auto 75.8 % (45-73); Platelet Count 409 X10*3/uL (160-400); Red Blood Count 4.43 X10*6/uL (4.60-5.80); Red Cell Distribution Width 18.9 % (11.0-16.0); White Blood Count 6.9 X10*3/uL (4.8-10.8)
[2022-02-07 19:12] LABS: Lactic Acid 1.5 mmol/L (0.5-2.0)
[2022-02-07 19:18] LABS: Alanine Aminotransferase 8 U/L (0-40); Albumin Level 3.1 g/dL (3.5-5.0); Alkaline Phosphatase 55 U/L (39-117); Anion Gap 13 (12-20); Aspartate Amino Transferase 15 U/L (5-37); Bilirubin Direct < 0.2 mg/dL (0.0-0.5); Bilirubin Total 0.2 mg/dL (0.0-1.0); Blood Urea Nitrogen 12 mg/dL (9-16); Carbon Dioxide 23 mmol/L (22-29); Chloride 109 mmol/L (96-108); Creatinine Clr Calc Pharmacy 87.3; Estimated Glomerular Filt Rate > 60; Glucose Random 97 mg/dL (60-115); Magnesium 1.9 mg/dL (1.6-2.6); Potassium 3.9 mmol/L (3.3-5.1); Sodium 141 mmol/L (135-145); Total Protein 5.8 g/dL (6.5-8.0)
[2022-02-07 19:19] LABS: B Type Natriuretic Peptide 20 pg/mL (<100); COVID-19 Test Negative (Negative); IDNOW Serial# 16C4AD1C; IDNOW Serial# 9DB6401D; Influenza A Negative (Negative); Influenza B2 Negative (Negative); Prothrombin Time 11.9 SEC (9.9-13.0)
[2022-02-07 19:20] LABS: Troponin-I High Sensitivity 8.9 ng/L (<3.5-35.0)
[2022-02-07 19:57] LABS: Appearance Urine CLEAR; Color Urine YELLOW; Glucose Urine UA NEG (NEG); Leukocyte Esterase Urine NEG (NEG); Nitrite Urine NEG (NEG); Urine Blood NEG (NEG); Urine Ketones NEG (NEG); Urine Protein NEG (NEG-TRACE)
[2022-02-07] MEDS: Piperacillin Sodium/Tazobactam 4.5 GM in 0.9 % Sodium Chloride 100 ML IV (20:21)
--- NOTE | 2022-02-07 21:10 | PHA.MEDREC ---
Pharmacy Consult ? Medication Reconciliation Pharmacy has completed the medication reconciliation.
[2022-02-07] MEDS: Heparin Sodium,Porcine 5,000 UNIT/ML VIAL 5000 UNIT SUBCUT (21:43)
[2022-02-07] MEDS: vancomycin HCL 1,500 MG in 0.9 % Sodium Chloride 500 ML 333.33 MG IV (21:44)
--- NOTE | 2022-02-07 22:14 | PC.NURSE ---
updated [facility] with plan to admit pt.
--- NOTE | 2022-02-07 22:27 | PM.IMHP ---
History of Present Illness Date of Service: 02/07/22 Chief Complaint: confused 76-year-old male with a past medical history of hypertension, hyperlipidemia, hypothyroidism, schizoaffective disorder, [facility] resident, GERD, history of dysphagia, anoxic brain injury, history of pneumonitis, TIA, tremors; presented from the correction with a chief complaint of altered mental status. Reportedly patient has been more confused than his baseline at the correction; subsequently sent to the hospital for further evaluation. Currently patient is alert awake and answers simple questions; denies any pain. Spoke to the RN at bedside; denies pacing having any cough or sputum production. Review of all other systems is limited ER course: Per ER team patient on presentation noted to be alert and awake; patient was able by the patient's PCP at bedside who mentioned that patient mental status appears to be at baseline; patient was noted to be saturating 88%; chest x-ray showed left lower lobe pneumonia; patient was given antibiotics. Admitted to the hospital for further management. [facility] Medical History (Updated 02/17/22 @ 00:03 by Cesar Truong) Acute gastritis with hemorrhage Anoxic brain damage, not elsewhere classified Candidal stomatitis Constipation, unspecified Degenerative disease of nervous system, unspecified Diaphragmatic hernia without obstruction or gangrene Dysarthria and anarthria Dysphagia Dysphagia, oral phase Dysphagia, oropharyngeal phase Essential (primary) hypertension Gastro-esophageal reflux disease without esophagitis Hypermetropia, unspecified eye Hypothyroidism Muscle weakness (generalized) Nonspecific reaction to tuberculin skin test without active tuberculosis Other gastritis with bleeding Other lack of coordination Other transient cerebral ischemic attacks and related syndromes Other voice and resonance disorders Personal history of COVID-19 Personal history of other diseases of the respiratory system 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 Pneumonitis due to inhalation of food and vomit Preglaucoma, unspecified, unspecified eye Schizoaffective disorder Tinea pedis Ulcer of esophagus with bleeding Unspecified cataract Unsteadiness on feet Social History Household Members: Other Household Members Other:: [facility] Housing: Half-Way Unable to assess alcohol history related to: Unable to respond Alcohol intake: unknown Patient Tobacco Use Status: Never used Tobacco Advance Directives Date on File: 10/03/20 service: No Current occupational status: disabled Meds Allergies Allergy/AdvReac Type Severity Reaction Status Date / Time tuberculin, purified protein Allergy Unknown UNKNOWN Verified 02/07/22 17:13 deriva [TUBERCULIN,PURIF.PROT.DERIV.] Active Medications: Current Medications Acetaminophen (Acetaminophen 325 Mg Tablet) 650 mg PO Q6H PRN PRN Reason: Pain, Mild (Pain Scale 1-3) Heparin Sodium (Porcine) (Heparin Sodium,Porcine 5,000 Unit/Ml Vial) 5,000 unit SUBCUT Q8H KENNY Last Admin: 02/07/22 21:43 Dose: 5,000 unit Documented by: Piperacillin Sod/Tazobactam (Sod 3.375 gm/ Sodium Chloride) 50 mls @ 100 mls/hr IV Q6H KENNY Vancomycin HCl 1,500 mg/ (Sodium Chloride) 500 mls @ 333.333 mls/hr IV ONCE ONE Stop: 02/08/22 00:29 Last Admin: 02/07/22 21:44 Dose: 333.33 mls/hr Documented by: Vancomycin HCl 1,250 mg/ (Sodium Chloride) 250 mls @ 166.667 mls/hr IV Q24H [facility] Melatonin (Melatonin 3 Mg Tablet) 6 mg PO BEDTIME PRN PRN Reason: Insomnia Pharmacy Consult (Consult Rx Vancomycin Dosing) 1 each MISCELLANE DAILY PRN PRN Reason: Consult order Senna (Sennosides 8.6 Mg Tablet) 17.2 mg PO BEDTIME PRN PRN Reason: Constipation Sodium Chloride (0.9 % Sodium Chloride Flush 3 Ml Syringe) 3 ml IVFLUSH QSHIFT [facility] Home Medications Medication Instructions Recorded Confirmed Last Taken Type acetaminophen 325 mg tablet 650 mg PO TID 08/26/21 02/07/22 Unknown History diazepam 5 mg tablet 5 mg PO DAILY 08/26/21 02/07/22 Unknown History docusate sodium 100 mg capsule 100 mg PO BID 08/26/21 02/07/22 Unknown History levothyroxine 100 mcg tablet 1 tab PO DAILY 08/26/21 02/07/22 Unknown History melatonin 3 mg tablet 3 mg PO BEDTIME PRN Insomnia 08/26/21 02/07/22 Unknown History mirtazapine 30 mg tablet 1 tab PO BEDTIME 08/26/21 02/07/22 Unknown History mirtazapine 7.5 mg tablet 1 tab PO BEDTIME 08/26/21 02/07/22 Unknown History pantoprazole 40 mg tablet,delayed 80 mg PO DAILY 08/26/21 02/07/22 Unknown History release peg 400-propylene glycol 0.4 %-0.3 1 drp ophthalmic (eye) TID PRN Dry 08/26/21 02/07/22 Unknown History % eye drops (Systane Ultra) Eyes perphenazine 2 mg tablet 1 tab PO DAILY 08/26/21 02/07/22 Unknown History thiamine HCl (vitamin B1) 100 mg 100 mg PO DAILY 08/26/21 02/07/22 Unknown History tablet oxycodone-acetaminophen 5 mg-325 1 tab PO TID PRN Pain, Moderate 09/30/21 02/07/22 Unknown History mg tablet calcium polycarbophil 625 mg 625 mg PO DAILY 02/07/22 02/07/22 Unknown History tablet (Fiber (calcium polycarbophil)) diazepam 5 mg tablet 10 mg PO BEDTIME 02/07/22 02/07/22 Unknown History lactulose 10 gram/15 mL oral 30 ml PO DAILY PRN Constipation 02/07/22 02/07/22 Unknown History solution menthol 0.44 %-zinc oxide 20 % 1 ea topical TID 02/07/22 02/07/22 Unknown History topical ointment polyethylene glycol 3350 17 gram 17 g PO DAILY 02/07/22 02/07/22 Unknown History oral powder packet sennosides 8.6 mg-docusate sodium 1 tab-cap PO BEDTIME 02/07/22 02/07/22 Unknown History 50 mg tablet (Senna Plus) Physical Exam Vital Signs and Narrative: Vital Signs: Last Vital Signs Temp 98.6 F 02/07/22 18:31 Pulse 79 02/07/22 20:10 Resp 15 02/07/22 20:10 BP 125/90 H 02/07/22 20:06 Pulse Ox 92 02/07/22 20:10 BMI result Body Mass Index 27.3 Results Labs CBC and Chem 7: 02/08/22 08:34 02/09/22 10:02 Labs: Laboratory Results - last 24 hr 02/07/22 02/07/22 02/07/22 18:48 18:48 18:48 MCV 80.6 MCH 24.2 L MCHC 30.0 L RDW 18.9 H Plt Count 409 H D MPV 8.4 L Immature Gran % (Auto) 0.6 H Neut % (Auto) 75.8 H Lymph % (Auto) 12.6 L [place] % (Auto) 8.8 Eos % (Auto) 1.9 Baso % (Auto) 0.3 Lymph # (Auto) 0.9 L [place] # (Auto) 0.6 Eos # (Auto) 0.1 Baso # (Auto) 0.0 Abs Immat Gran (auto) 0.04 H Absolute Neuts (auto) 5.2 Absolute Nucleated RBC 0.000 Nucleated RBC % (auto) 0.0 PT 11.9 INR 1.0 Anion Gap 13 Estim Creat Clear Calc 87.3 Estimated GFR > 60 Random Glucose 97 Lactic Acid Calcium 8.0 L Magnesium 1.9 Total Bilirubin 0.2 Direct Bilirubin < 0.2 AST 15 ALT 8 Alkaline Phosphatase 55 D Total Creatine Kinase 129 D Troponin I High Sens B-Natriuretic Peptide Total Protein 5.8 L Albumin 3.1 L Urine Color Urine Appearance Urine pH Ur Specific [place] Urine Protein Urine Glucose (UA) Urine Ketones Urine Blood Urine Nitrite Ur Leukocyte Esterase COVID-19 (KATELIN) COVID-19 Clin Com Influenza Type A (JORGE A) Influenza Type B (JORGE A) Influenza A & B Note 02/07/22 02/07/22 02/07/22 18:48 18:48 18:48 MCV MCH MCHC RDW Plt Count MPV Immature Gran % (Auto) Neut % (Auto) Lymph % (Auto) [place] % (Auto) Eos % (Auto) Baso % (Auto) Lymph # (Auto) [place] # (Auto) Eos # (Auto) Baso # (Auto) Abs Immat Gran (auto) Absolute Neuts (auto) Absolute Nucleated RBC Nucleated RBC % (auto) PT INR Anion Gap Estim Creat Clear Calc Estimated GFR Random Glucose Lactic Acid 1.5 Calcium Magnesium Total Bilirubin Direct Bilirubin AST ALT Alkaline Phosphatase Total Creatine Kinase Troponin I High Sens 8.9 B-Natriuretic Peptide 20 Total Protein Albumin Urine Color Urine Appearance Urine pH Ur Specific [place] Urine Protein Urine Glucose (UA) Urine Ketones Urine Blood Urine Nitrite Ur Leukocyte Esterase COVID-19 (KATELIN) COVID-19 Clin Com Influenza Type A (JORGE A) Influenza Type B (JORGE A) Influenza A & B Note 02/07/22 02/07/22 02/07/22 18:48 18:48 19:38 MCV MCH MCHC RDW Plt Count MPV Immature Gran % (Auto) Neut % (Auto) Lymph % (Auto) [place] % (Auto) Eos % (Auto) Baso % (Auto) Lymph # (Auto) [place] # (Auto) Eos # (Auto) Baso # (Auto) Abs Immat Gran (auto) Absolute Neuts (auto) Absolute Nucleated RBC Nucleated RBC % (auto) PT INR Anion Gap Estim Creat Clear Calc Estimated GFR Random Glucose Lactic Acid Calcium Magnesium Total Bilirubin Direct Bilirubin AST ALT Alkaline Phosphatase Total Creatine Kinase Troponin I High Sens B-Natriuretic Peptide Total Protein Albumin Urine Color YELLOW Urine Appearance CLEAR Urine pH 6.0 Ur Specific [place] 1.020 Urine Protein NEG Urine Glucose (UA) NEG Urine Ketones NEG Urine Blood NEG Urine Nitrite NEG Ur Leukocyte Esterase NEG COVID-19 (KATELIN) Negative COVID-19 Clin Com See Note Influenza Type A (JORGE A) Negative Influenza Type B (JORGE A) Negative Influenza A & B Note See Note Imaging Radiologist's Impressions: Impressions Chest X-Ray 02/07/22 17:45 IMPRESSION: Left lower lobe atelectasis or small infiltrate. Head CT 02/07/22 17:57 IMPRESSION: Limited exam due to motion. No acute findings. Generalized atrophy and nonspecific periventricular white matter disease. Assessment and Plan (1) Pneumonia: Status: Acute Plan 76-year-old male with a past medical history of hypertension, hyperlipidemia, hypothyroidism, schizoaffective disorder, [facility] resident, GERD, history of dysphagia, anoxic brain injury, history of pneumonitis, TIA, tremors; presented from the correction with a chief complaint of altered mental status. Noted to have pneumonia. Admitted for further management. Altered mental status: Likely toxic metabolic encephalopathy. Improving. Patient currently alert awake and lying comfortably in the bed. Supportive care. CT head negative; UA negative. Pneumonia: Continue IV vanc and Zosyn. MRSA screen. Urine Legionella and strep pneumo. History of dysphagia: Will consult speech and swallow eval. Aspiration precautions. All chronic conditions are stable. Continue home medications. DVT prophylaxis: Subcu heparin Code status: Full code Quality Stroke Does the patient have a stroke diagnosis?: No VTE Prior VTE?: No VTE Risk Level:: Medical - moderate - high VTE Device Contraindication: N/A - Device Ordered VTE Drug Contraindication: Treatment Not Indicated
--- NOTE | 2022-02-07 23:27 | PC.NURSE ---
urine sample obtained and sent to lab.
[2022-02-07] MEDS: 0.9 % Sodium Chloride Flush 3 ML SYRINGE IVFLUSH (23:44)
[2022-02-08] MEDS: Piperacillin Sodium/Tazobactam 3.375 GM in 0.9 % Sodium Chloride 50 ML IV ×4 (02:05→21:23)
[2022-02-08 03:03] VITALS: BP 132/58; PULSE 101; RESP 20; TEMP 37.6; O2SAT 95
[2022-02-08] MEDS: diazePAM 10 MG/2 ML CARTRIDGE 5 MG IVPUSH (03:11)
--- NOTE | 2022-02-08 03:13 | PC.NURSE ---
Addendum entered by Gissel Reagan 02/08/22 03:32: report given to GEREMIAS Jolly Original Note: report received from GEREMIAS Tejeda. pt found restless, and moaning. pt med per mar. pt on continuos cardiac monitoring
[2022-02-08] MEDS: Heparin Sodium,Porcine 5,000 UNIT/ML VIAL 5000 UNIT SUBCUT ×3 (05:43→21:56)
[2022-02-08 07:25] VITALS: BP 155/95; PULSE 114; RESP 19; TEMP 37
[2022-02-08 07:34] LABS: Anion Gap 15 (12-20); Blood Urea Nitrogen 9 mg/dL (9-16); Calcium 8.8 mg/dL (8.4-10.2); Carbon Dioxide 21 mmol/L (22-29); Chloride 108 mmol/L (96-108); Creatinine Clr Calc Pharmacy 87.3; Estimated Glomerular Filt Rate > 60; Glucose Random 76 mg/dL (60-115); Potassium 4.8 mmol/L (3.3-5.1); Sodium 139 mmol/L (135-145)
[2022-02-08] MEDS: 0.9 % Sodium Chloride Flush 3 ML SYRINGE IVFLUSH ×3 (07:40→21:23)
--- NOTE | 2022-02-08 07:43 | PC.NURSE ---
patient awake to verbal stimulus- pt non verbal, iv antibiotics hung per order, pt is NPO to have a speech swallow eval performed, PO meds have been held, dr nuñez was notified via tiger text, pt incontinenet/turned to comfort, vss, pt sinus tach on monitor, call hare within reach, will continue to monitor
[2022-02-08 08:54] LABS: Basophils Percent Auto 0.3 % (0-2); Eosinophils Absolute Auto 0.1 X10*3/uL (0.0-0.4); Hematocrit 39.4 % (42.0-52.0); Hemoglobin 11.8 g/dl (14.0-18.0); Imm Gran Abs Auto 0.04 X10*3/uL (0.00-0.03); Imm Gran Pct Auto 0.4 % (0.0-0.4); Lymphocytes Absolute Auto 0.9 X10*3/uL (1.2-4.9); Lymphocytes Percent Auto 8.7 % (20-40); Mean Corpuscular HGB Conc 29.9 g/dl (31.0-36.0); Mean Corpuscular Hemoglobin 24.2 pg (27.0-33.0); Mean Corpuscular Volume 80.7 fL (80.0-98.0); Mean Platelet Volume 8.5 fL (9.4-12.4); Monocytes Absolute Auto 0.6 X10*3/uL (0.1-1.2); Monocytes Percent Auto 5.9 % (2-11); Neutrophils Absolute Auto 8.2 x10*3/uL (2.0-8.3); Neutrophils Percent Auto 83.7 % (45-73); Platelet Count 450 X10*3/uL (160-400); Red Blood Count 4.88 X10*6/uL (4.60-5.80); Red Cell Distribution Width 18.9 % (11.0-16.0); White Blood Count 9.7 X10*3/uL (4.8-10.8)
--- NOTE | 2022-02-08 09:26 | HE.PHANOTE ---
Patients cr same as yesterday 0.7 , trough 02/09@2100
--- NOTE | 2022-02-08 10:55 | MHC.CM.PN ---
Patient has a diagnosis of Anoxic Brain Injury; CM left a detailed message for Brother/HCP/Vicente at [phone] addressing IMM with him (original will be mailed certified letter to Vicente and a copy placed on the chart). Patient is a LTC Resident at [facility] and the plan is for him to return there. CM has initiated and will follow for dc planning.
[2022-02-08 11:39] LABS: MRSA Nasal PCR NEGATIVE (Negative); SA Nasal PCR NEGATIVE (Negative)
[2022-02-08 11:42] VITALS: BP 146/73; PULSE 108; RESP 19; TEMP 36.6; O2SAT 97
--- NOTE | 2022-02-08 12:25 | PC.NURSE ---
patient sleeping, wakes to stimulus, nonverbal, turn/positioned to comfort, vss, pt sinus tach on moniter, call hare within reach, will continue to monitor
[2022-02-08] MEDS: Zinc Oxide 20% Ointment 28.35 GM TUBE 1 APPL TOPICAL ×2 (14:03→22:04)
--- NOTE | 2022-02-08 14:03 | P.PNIM_ITS ---
Subjective Subjective Date of Service: 02/08/22 Interval History: No acute issues overnight. Patient at baseline. Review of Systems Denies chest pain Denies shortness of breath Denies nausea vomiting diarrhea Physical Exam Vital Signs: Vital Signs: Last Vital Signs Temp 97.8 F 02/08/22 11:42 Pulse 108 H 02/08/22 11:42 Resp 19 02/08/22 11:42 BP 146/73 H 02/08/22 11:42 Pulse Ox 97 02/08/22 11:42 BMI result Body Mass Index 27.3 Const: Other: Awake alert oriented to self Resp: Other: Diminished at left base with fine crackles her Cardio: Other: No S4; positive S1-S2; no S3 murmurs rubs or gallops GI: Other: Soft nontender nondistended normoactive sounds Extrem: Other: No edema bilaterally Objective Data Active Medications Acetaminophen (Acetaminophen 325 Mg Tablet) 650 mg PO Q6H PRN PRN Reason: Pain, Mild (Pain Scale 1-3) Artificial Tears (Artificial Tears 15 Ml Drops) 1 drop EYE-BOTH TID PRN PRN Reason: Dry Eyes Calcium Polycarbophil (Calcium Polycarbophil Tablet) 1 tab PO DAILY [facility] Last Admin: 02/08/22 07:42 Dose: Not Given Documented by: PEDRO Non-Admin Reason: NPO Diazepam (Diazepam 5 Mg Tablet) 5 mg PO DAILY [facility] Last Admin: 02/08/22 07:42 Dose: Not Given Documented by: PEDRO Non-Admin Reason: NPO Diazepam (Diazepam 5 Mg Tablet) 10 mg PO BEDTIME [facility] Docusate Sodium (Docusate Sodium 100 Mg Capsule) 100 mg PO BID [facility] Last Admin: 02/08/22 07:43 Dose: Not Given Documented by: PEDRO Non-Admin Reason: NPO Heparin Sodium (Porcine) (Heparin Sodium,Porcine 5,000 Unit/Ml Vial) 5,000 unit SUBCUT Q8H [facility] Last Admin: 02/08/22 14:02 Dose: 5,000 unit Documented by: PEDRO Piperacillin Sod/Tazobactam (Sod 3.375 gm/ Sodium Chloride) 50 mls @ 100 mls/hr IV Q6H [facility] Last Admin: 02/08/22 14:02 Dose: 100 mls/hr Documented by: HO.[email or web address] Vancomycin HCl 1,250 mg/ (Sodium Chloride) 250 mls @ 166.667 mls/hr IV Q24H [facility] Lactulose (Lactulose 20 Gm/30 Ml Solution) 20 gm PO DAILY PRN PRN Reason: Constipation Levothyroxine Sodium (Levothyroxine Sodium 100 Mcg Tablet) 100 mcg PO DAILY@0 630 [facility] Last Admin: 02/08/22 07:43 Dose: Not Given Documented by: PEDRO Non-Admin Reason: NPO Melatonin (Melatonin 3 Mg Tablet) 6 mg PO BEDTIME PRN PRN Reason: Insomnia Mirtazapine (Mirtazapine 7.5 Mg Tablet) 7.5 mg PO BEDTIME KENNY Mirtazapine (Mirtazapine 30 Mg Tablet) 30 mg PO BEDTIME KENNY Omeprazole (Omeprazole 40 Mg Capsule.Dr) 40 mg PO DAILY@0630 [facility] Last Admin: 02/08/22 07:42 Dose: Not Given Documented by: PEDRO Non-Admin Reason: NPO Oxycodone HCl (Oxycodone Hcl Immed Release 5 Mg Tablet) 1 mg PO TID PRN PRN Reason: Pain, Moderate Perphenazine (Perphenazine 2 Mg Tablet) 2 mg PO DAILY [facility] Last Admin: 02/08/22 07:43 Dose: Not Given Documented by: PEDRO Non-Admin Reason: NPO Pharmacy Consult (Consult Rx Vancomycin Dosing) 1 each MISCELLANE DAILY PRN PRN Reason: Consult order Polyethylene Glycol (Polyethylene Glycol 3350 17 Gm Powd.Pack) 17 gm PO DAILY [facility] Last Admin: 02/08/22 07:43 Dose: Not Given Documented by: PEDRO Non-Admin Reason: NPO Senna (Sennosides 8.6 Mg Tablet) 17.2 mg PO BEDTIME PRN PRN Reason: Constipation Senna/Docusate Sodium (Sennosides/Docusate Sodium Tablet) 1 tab PO BEDTIME [facility] Sodium Chloride (0.9 % Sodium Chloride Flush 3 Ml Syringe) 3 ml IVFLUSH QSHIFT [facility] Last Admin: 02/08/22 07:40 Dose: 3 ml Documented by: PEDRO Thiamine HCl (Thiamine Hcl 100 Mg Tablet) 100 mg PO DAILY [facility] Last Admin: 02/08/22 07:43 Dose: Not Given Documented by: PEDRO Non-Admin Reason: NPO Zinc Oxide (Zinc Oxide 20% Ointment 28.35 Gm Tube) 1 appl TOPICAL TID KENNY Last Admin: 02/08/22 14:03 Dose: 1 appl Documented by: PEDRO Labs CBC & Chem 7: 02/08/22 08:34 02/08/22 05:57 Labs: Laboratory Results - last 24 hr 02/07/22 02/07/22 02/07/22 18:48 18:48 18:48 MCV 80.6 MCH 24.2 L MCHC 30.0 L RDW 18.9 H Plt Count 409 H D MPV 8.4 L Immature Gran % (Auto) 0.6 H Neut % (Auto) 75.8 H Lymph % (Auto) 12.6 L Wright % (Auto) 8.8 Eos % (Auto) 1.9 Baso % (Auto) 0.3 Lymph # (Auto) 0.9 L Wright # (Auto) 0.6 Eos # (Auto) 0.1 Baso # (Auto) 0.0 Abs Immat Gran (auto) 0.04 H Absolute Neuts (auto) 5.2 Absolute Nucleated RBC 0.000 Nucleated RBC % (auto) 0.0 PT 11.9 INR 1.0 Anion Gap 13 Estim Creat Clear Calc 87.3 Estimated GFR > 60 Random Glucose 97 Lactic Acid Calcium 8.0 L Magnesium 1.9 Total Bilirubin 0.2 Direct Bilirubin < 0.2 AST 15 ALT 8 Alkaline Phosphatase 55 D Total Creatine Kinase 129 D Troponin I High Sens B-Natriuretic Peptide Total Protein 5.8 L Albumin 3.1 L Urine Color Urine Appearance Urine pH Ur Specific [place] Urine Protein Urine Glucose (UA) Urine Ketones Urine Blood Urine Nitrite Ur Leukocyte Esterase Nasal Screen MRSA (PCR) Nasal S. aureus Screen Nasal MRSA/S.aureus Interp COVID-19 (KATELIN) COVID-19 Clin Com Influenza Type A (JORGE A) Influenza Type B (JORGE A) Influenza A & B Note 02/07/22 02/07/22 02/07/22 18:48 18:48 18:48 MCV MCH MCHC RDW Plt Count MPV Immature Gran % (Auto) Neut % (Auto) Lymph % (Auto) [place] % (Auto) Eos % (Auto) Baso % (Auto) Lymph # (Auto) [place] # (Auto) Eos # (Auto) Baso # (Auto) Abs Immat Gran (auto) Absolute Neuts (auto) Absolute Nucleated RBC Nucleated RBC % (auto) PT INR Anion Gap Estim Creat Clear Calc Estimated GFR Random Glucose Lactic Acid 1.5 Calcium Magnesium Total Bilirubin Direct Bilirubin AST ALT Alkaline Phosphatase Total Creatine Kinase Troponin I High Sens 8.9 B-Natriuretic Peptide 20 Total Protein Albumin Urine Color Urine Appearance Urine pH Ur Specific [place] Urine Protein Urine Glucose (UA) Urine Ketones Urine Blood Urine Nitrite Ur Leukocyte Esterase Nasal Screen MRSA (PCR) Nasal S. aureus Screen Nasal MRSA/S.aureus Interp COVID-19 (KATELIN) COVID-19 Clin Com Influenza Type A (JORGE A) Influenza Type B (JORGE A) Influenza A & B Note 02/07/22 02/07/22 02/07/22 18:48 18:48 19:38 MCV MCH MCHC RDW Plt Count MPV Immature Gran % (Auto) Neut % (Auto) Lymph % (Auto) [place] % (Auto) Eos % (Auto) Baso % (Auto) Lymph # (Auto) [place] # (Auto) Eos # (Auto) Baso # (Auto) Abs Immat Gran (auto) Absolute Neuts (auto) Absolute Nucleated RBC Nucleated RBC % (auto) PT INR Anion Gap Estim Creat Clear Calc Estimated GFR Random Glucose Lactic Acid Calcium Magnesium Total Bilirubin Direct Bilirubin AST ALT Alkaline Phosphatase Total Creatine Kinase Troponin I High Sens B-Natriuretic Peptide Total Protein Albumin Urine Color YELLOW Urine Appearance CLEAR Urine pH 6.0 Ur Specific [place] 1.020 Urine Protein NEG Urine Glucose (UA) NEG Urine Ketones NEG Urine Blood NEG Urine Nitrite NEG Ur Leukocyte Esterase NEG Nasal Screen MRSA (PCR) Nasal S. aureus Screen Nasal MRSA/S.aureus Interp COVID-19 (KATELIN) Negative COVID-19 Clin Com See Note Influenza Type A (JORGE A) Negative Influenza Type B (JORGE A) Negative Influenza A & B Note See Note 02/07/22 02/08/22 02/08/22 23:42 05:57 08:34 MCV 80.7 MCH 24.2 L MCHC 29.9 L RDW 18.9 H Plt Count 450 H MPV 8.5 L Immature Gran % (Auto) 0.4 Neut % (Auto) 83.7 H Lymph % (Auto) 8.7 L [place] % (Auto) 5.9 Eos % (Auto) 1.0 Baso % (Auto) 0.3 Lymph # (Auto) 0.9 L [place] # (Auto) 0.6 Eos # (Auto) 0.1 Baso # (Auto) 0.0 Abs Immat Gran (auto) 0.04 H Absolute Neuts (auto) 8.2 Absolute Nucleated RBC 0.000 Nucleated RBC % (auto) 0.0 PT INR Anion Gap 15 Estim Creat Clear Calc 87.3 Estimated GFR > 60 Random Glucose 76 Lactic Acid Calcium 8.8 D Magnesium Total Bilirubin Direct Bilirubin AST ALT Alkaline Phosphatase Total Creatine Kinase Troponin I High Sens B-Natriuretic Peptide Total Protein Albumin Urine Color Urine Appearance Urine pH Ur Specific [place] Urine Protein Urine Glucose (UA) Urine Ketones Urine Blood Urine Nitrite Ur Leukocyte Esterase Nasal Screen MRSA (PCR) NEGATIVE Nasal S. aureus Screen NEGATIVE Nasal MRSA/S.aureus Interp SEE NOTE COVID-19 (KATELIN) COVID-19 Clin Com Influenza Type A (JORGE A) Influenza Type B (JORGE A) Influenza A & B Note Assessment and Plan (1) Pneumonia: Status: Acute (2) Schizoaffective disorder: Status: Acute Assessment and Plan: 76 yo male with a history of schizoaffective disorder, HTN, GERD, hypothyroidis m, history of stroke, anoxic brain injury, dysphagia, aspiration pneumonia, gastritis and GERD, history of esophageal ulcer presents with change in mental status most likely related to left lower lobe infiltrate 1. Left lower lobe infiltrate (treat as HAP) -VANCO/ZOSYN (2) -titrate O2 as tolerated 2. Schizoaffective disorder in backdrop of TBI -continue outpatient therapies as per care Nov 3. GERD/esophageal ulcer -continue PPI at outpatient dosing Full code Heparin Requires ongoing hospitalization for treatment of hospital-acquired pneumonia with IV vancomycin and Zosyn Quality Stroke Does the patient have a stroke diagnosis?: No VTE Prior VTE?: No VTE Risk Level:: Medical - moderate - high VTE Device Contraindication: N/A - Device Ordered VTE Drug Contraindication: Treatment Not Indicated
[2022-02-08 15:23] VITALS: BP 95/76; PULSE 96; RESP 18; TEMP 36.9; O2SAT 98
[2022-02-08 18:42] VITALS: BP 174/87; PULSE 115; RESP 22; TEMP 36.7; O2SAT 96
[2022-02-08] MEDS: Acetaminophen 325 MG TABLET 650 MG PO (18:50)
[2022-02-08] MEDS: Sennosides/Docusate Sodium TABLET 1 TAB PO (21:56)
[2022-02-08] MEDS: diazePAM 5 MG TABLET 10 MG PO (21:56)
[2022-02-08] MEDS: Mirtazapine 7.5 MG TABLET PO (21:56)
[2022-02-08] MEDS: vancomycin HCL 1,250 MG in 0.9 % Sodium Chloride 250 ML 166.67 MG IV (21:57)
[2022-02-08] MEDS: Mirtazapine 15 MG TABLET 30 MG PO (22:00)
[2022-02-08] MEDS: oxyCODONE HCl Immed Release 5 MG TABLET PO (23:40)
[2022-02-09] MEDS: Piperacillin Sodium/Tazobactam 3.375 GM in 0.9 % Sodium Chloride 50 ML IV ×3 (02:21→13:48)
[2022-02-09 04:00] VITALS: BP 123/53; PULSE 59; RESP 18; O2SAT 100
[2022-02-09] MEDS: Heparin Sodium,Porcine 5,000 UNIT/ML VIAL 5000 UNIT SUBCUT ×2 (05:57→13:47)
[2022-02-09] MEDS: Levothyroxine Sodium 100 MCG TABLET PO (05:58)
[2022-02-09] MEDS: Omeprazole 40 MG CAPSULE.DR PO (05:58)
[2022-02-09 07:53] VITALS: BP 91/30; PULSE 60; RESP 18; O2SAT 100
[2022-02-09] MEDS: polyethylene glycoL 3350 17 GM POWD.PACK PO (08:26)
[2022-02-09] MEDS: Thiamine HCL 100 MG TABLET PO (08:28)
[2022-02-09] MEDS: Docusate Sodium 100 MG CAPSULE PO (08:30)
[2022-02-09] MEDS: diazePAM 5 MG TABLET PO (08:30)
[2022-02-09] MEDS: Perphenazine 2 MG TABLET PO (08:30)
[2022-02-09] MEDS: calcium polycarbophiL TABLET 1 TAB PO (08:32)
[2022-02-09] MEDS: Acetaminophen 325 MG TABLET 650 MG PO (08:32)
[2022-02-09] MEDS: 0.9 % Sodium Chloride Flush 3 ML SYRINGE IVFLUSH (08:47)
[2022-02-09] MEDS: Zinc Oxide 20% Ointment 28.35 GM TUBE 1 APPL TOPICAL (08:47)
[2022-02-09 10:32] LABS: Creatinine Clr Calc Pharmacy 81.5; Estimated Glomerular Filt Rate > 60
--- NOTE | 2022-02-09 12:03 | MHC.SL.SWA ---
Speech Pathologist Impression: Oropharyngeal dysphagia, hx aspiration Risk of Aspiration Due to: Neurological Condition History of Pneumonia Dysphasia Diet Status:Downgrade Liquid Consistency and Strategies for Safe Swallow: Liquid Intake Recommendation: Honey Thick Liquid Intake Strategies: Small Sips Solid Food Consistency: Dietary Recommendations: Grnd/Mech Altered (NDD2) Additional Modifications to Solid Foods: Patient here with pneumonia. Patient comes from [facility], at baseline is on minced and moist solids and nectar thick liquids. CATALYST CONCENTRATION OPERATOR spoke with CATALYST CONCENTRATION OPERATOR Desiree from [facility], who reports that patient had MBSS in September-October, which did show aspiration, positive cough response. This morning RN reported that patient coughed when drinking nectar thick liquid. With PO trials, patient again with delayed cough after trials nectar thick liquid. As a precaution, recommend continue GROUND/MECH ALTERED (NDD2) diet with DOWNGRADE to honey thick liquid at this time, pills CRUSHED with PUREE. Patient has notable tremor. Better coordination when drinking liquids by spoon or straw, consistent with observations made by CATALYST CONCENTRATION OPERATOR at [facility]. Patient requires total 1:1 assistance feeding. D/t edentulous state, recommend moisten food with sauces and gravies, ensure oral cavity is clear of food before presenting more bites, avoid sticky foods. Strict aspiration precautions. Recommend frequent oral care, elevate head of bed at least 30 degrees to decrease risk of microaspiration. CATALYST CONCENTRATION OPERATOR will continue to follow. Goal is hopefully to upgrade patient back to baseline (nectar thick liquids) per tolerance when appropriate. Discussed with RN in unit. CATALYST CONCENTRATION OPERATOR updated diet order, updated MD, RN, RD via [place] Message. Oral Medication Intake: Crushed with Puree Please contact the pharmacy regarding appropriate crushable or liquid drug formulations that are available whenever modified delivery is recommended. Compensatory Strategies and Precautions to be Taken for Safe Swallow: Sitting Upright (90 deg) Liquids from Straw Liquids from Spoon Small Bites and Sips Alternate Liquids/Solids Rate of Ingestion Change Oral Check Avoid Specific Foods Supervision While Eating and Drinking for Safe Swallow: Total Assistance (1:1) Foods to Avoid: Sticky consistencies Swallowing Recommended Treatments: Recommendation for Speech: Outpatient Speech Therapy Inpatient Speech Therapy Speech Therapy through Rehab Facility Comment: CATALYST CONCENTRATION OPERATOR will continue to follow while patient is admitted. Recommend continue ST intervention at LTC facility. Frequency/Duration: M-F while inpatient Date Range for Service Req: Timeline to reassess: Floodplain Manager Clinican/Clinical Fellow: No Supervisory Statement: I have reviewed and agree with the student/clinical fellow's documentation: N/A Speech Language Pathologist: Yane Abbott M.A., [facility]-CATALYST CONCENTRATION OPERATOR
--- NOTE | 2022-02-09 13:46 | PM.DS ---
DS: Providers Provider Date of Service: 02/09/22 Date of admission: 02/07/22 20:11 Date of discharge: 02/09/22 Primary care physician: Sampson Ornelas DO DS: Diagnosis Discharge Diagnosis (1) Pneumonia: Status: Acute (2) Schizoaffective disorder: Status: Acute DS: Summary Hospital Course Hospital Course: 76-year-old male with a past medical history of hypertension, hyperlipidemia, hypothyroidism, schizoaffective disorder, intermediate resident, GERD, history of dysphagia, anoxic brain injury, history of pneumonitis, TIA, tremors; presented from the intermediate with a chief complaint of altered mental status.? Reportedly patient has been more confused than his baseline at the intermediate; subsequently sent to the hospital for further evaluation.? Per ER team patient on presentation noted to be alert and awake; patient was able by the patient's PCP at bedside who mentioned that patient mental status appears to be at baseline; patient was noted to be saturating 88%; chest x-ray showed left lower lobe pneumonia; patient was given antibiotics Hospital Course Admitted to general medical floor given vancomycin Zosyn. After 48 hours his white count has remained stable he is satting 100% on room air and has remained afebrile. He is medically acceptable for transfer back to [facility] Time Spent with Patient Time attestation: Total time spent providing and/or coordinating discharge services: Discharge coordination time: Greater than 30 minutes Quality: Safe Use of Opioids Does Pt have an Active Cancer Diagnosis on the Problem List?: No Quality: Stroke Does the patient have a stroke diagnosis?: No Physical Exam Vital Signs: Vital Signs: Last Vital Signs Temp 98.0 F 02/08/22 18:42 Pulse 60 02/09/22 07:53 Resp 18 02/09/22 07:53 BP 91/30 L 02/09/22 07:53 Pulse Ox 100 02/09/22 07:53 BMI result Body Mass Index 27.3 Const: Other: Awake alert oriented to self Resp: Other: Diminished at left base with fine crackles her Cardio: Other: No S4; positive S1-S2; no S3 murmurs rubs or gallops GI: Other: Soft nontender nondistended normoactive sounds Extrem: Other: No edema bilaterally DS: Data Data Completed and Pending Labs on day of discharge: Laboratory Results - last 24 hr 05/23/22 10:02 Creatinine 0.75 Estim Creat Clear Calc 81.5 Estimated GFR > 60 Preliminary micro results at discharge 02/07/22 18:48 Blood Culture - Preliminary Blood - Venous No growth after 24 hours. 02/07/22 18:48 Blood Culture - Preliminary Blood - Venous No growth after 24 hours. Discharge Plan Discharge Patient Disposition: er [facility] Discharge Diagnosis: Left lower lobe infiltrate Referrals: Sampson Ornelas DO [Primary Care Provider] - 1 Week Discharge Medications: New amoxicillin-pot clavulanate 875-125 mg tablet 1 tab PO BID Qty: 20 0RF Continued sennosides-docusate sodium [Senna Plus] 8.6-50 mg Tablet 1 tab-cap PO BEDTIME 0RF calcium polycarbophil [Fiber (calcium polycarbophil)] 625 mg Tablet 625 mg PO DAILY 0RF diazepam 5 mg tablet 10 mg PO BEDTIME 0RF lactulose 10 gram/15 mL solution 30 ml PO DAILY PRN (Reason: Constipation) 0RF menthol-zinc oxide 0.44-20 % Ointment 1 ea TOPICAL TID 0RF Rx Instructions: TO COCCYX polyethylene glycol 3350 17 gram powder in packet 17 g PO DAILY 0RF acetaminophen 325 mg Tablet 650 mg PO TID 0RF perphenazine 2 mg tablet 1 tab PO DAILY 0RF thiamine HCl (vitamin B1) 100 mg Tablet 100 mg PO DAILY 0RF melatonin 3 mg Tablet 3 mg PO BEDTIME PRN (Reason: Insomnia) 0RF levothyroxine 100 mcg tablet 1 tab PO DAILY 0RF pantoprazole 40 mg Tablet,Delayed Release (Dr/Ec) 80 mg PO DAILY 0RF mirtazapine 30 mg tablet 1 tab PO BEDTIME 0RF docusate sodium 100 mg Capsule 100 mg PO BID 0RF diazepam 5 mg tablet 5 mg PO DAILY 0RF Systane Ultra 0.4-0.3 % Drops 1 drp OPHTHALMIC (EYE) TID PRN (Reason: Dry Eyes) 0RF mirtazapine 7.5 mg tablet 1 tab PO BEDTIME 0RF oxycodone-acetaminophen 5-325 mg tablet 1 tab PO TID PRN (Reason: Pain, Moderate) 0RF Discharge Orders: Discharge Order (Routine); Ordered 02/09/22 Ordered By: Sampson Ornelas Diet: advance to usual diet Activity on Discharge: As tolerated Stand Alone Forms: Patient Portal Discharge page Care Plan Goals: Complete course of Augmentin Health Concerns: Resume all previous medicines Plan of Treatment: Speech eval at [facility] Assessment: See discharge summary
[2022-02-09 14:19] VITALS: BP 127/60
[2022-02-09 15:07] VITALS: BP 122/59; PULSE 69; RESP 20; TEMP 36.5; O2SAT 100
[2022-02-13 00:07] LABS: Legionella Ag Urine Not Detected (Not Detected)
== END 2022-02-09 17:35 | DRG 195 ==
LOC: HO.ED 20:18 → HO.EDOVER 20:54
PROVIDERS: Nurse Practitioner Family; Admitting Provider Hospitalist; Emergency Provider Internal Medicine; PCP Hospitalist; Visit Provider Hospitalist
DX: J18.9 Pneumonia, unspecified organism (principal); E03.9 Hypothyroidism, unspecified; R25.1 Tremor, unspecified; K21.9 Gastro-esophageal reflux disease without esophagitis; R13.10 Dysphagia, unspecified; F25.9 Schizoaffective disorder, unspecified; Z20.822 Contact with and (suspected) exposure to COVID-19; Z86.73 Personal history of transient ischemic attack (TIA), and cerebral infarction without residual deficits; Z87.820 Personal history of traumatic brain injury; Z79.890 Hormone replacement therapy; Z79.899 Other long term (current) drug therapy
CPT/HCPCS: 36415; 70450; 71045; 80048; 80076; 81003; 82550; 82565; 83605; 83735; 83880; 84484; 85025; 85610; 87040; 87449; 87502; 87635; 87640; 87641; 87899; 92610; 93005; 99285; J0696; J2543; J3360; J3370

== ENCOUNTER 2022-04-09 10:05 | Outpatient (REF) | payer MEDICARE, MEDICAID, SELFPAY ==
--- NOTE | ~2022-04-09 | CT_ITS ---
EXAMINATION: CT CHEST WITH CONTRAST CLINICAL INFORMATION: Solitary pulmonary nodule. COMPARISON: Chest x-ray 02/07/2022. TECHNIQUE: Multidetector volumetric CT imaging of the chest was obtained after the administration of 50 mL of Omnipaque 350 intravenous contrast without immediate adverse reactions. Axial MIP volume rendering provided. Sagittal and coronal reformatted images were obtained. This CT examination was performed using dose optimization techniques as appropriate, variously including the following: *Automated exposure control *Adjustment of mA and/or kV according to patient size (this includes techniques or standardized protocols for targeted exams where dose is matched to indication/reason for exam; i.e. extremities or head) *Use of iterative reconstruction technique DLP: 214 mGy-cm FINDINGS: INTEGRATED CIRCUIT FABRICATOR: Well expanded lungs. LUNGS: There are 5 mm nodules in the right upper lobe on axial image 37/4, 40/4, and a pleural-based 6 mm nodule right lower lobe axial image 365/7. There is ill-defined patchy opacity and tree-in-bud appearance right lower lobe posterior basal segment. There is no bronchiectasis or bronchial wall thickening. No debris seen either. Patchy atelectatic changes are seen in the lingula. MEDIASTINUM: The thyroid lobes are symmetric and normal. The central trachea and the bronchi are widely patent. The heart size and the great vessels are normal caliber. Normal three-vessel branching of the aortic arch with atherosclerotic calcification at the origins of the left common and left subclavian artery is noted. There is no pericardial effusion. Mild coronary artery calcifications are present. PLEURA: There is no pleural effusion. No pleural mass or thickening. AXILLA: No lymphadenopathy. UPPER ABDOMEN: The visualized liver, spleen, pancreas, and bilateral adrenal glands are unremarkable. The gallbladder is unremarkable. OSSEOUS STRUCTURES: No lytic or sclerotic process seen. There is mild ventral spondylosis. CT/CT chest w con IMPRESSION: Two 5 mm nodules right upper lobe and a 6 mm pleural-based nodule right lower lobe Ill-defined parenchymal opacity right lower lobe. Likely developing infiltrate. Recommend followup chest x-ray in 7-10 days to evaluate infiltrate and a CT chest for nodule followup in 1 year followed by 18-24 months, as per Fleischner guidelines. Fleischner guidelines were followed.
[2022-04-09] MEDS: iohexoL 350 MG/ML 100 ML INFUS..BTL IV (12:54)
== END 2022-04-09 10:06 | disposition home or self-care (01) ==
LOC: HO.CT 10:05
PROVIDERS: Visit Provider Hospitalist
DX: R91.1 Solitary pulmonary nodule (principal)
CPT/HCPCS: 71260; Q9967

== ENCOUNTER 2022-06-06 09:31 | Inpatient (IN) | payer MEDICARE, MEDICAID, SELFPAY ==
--- NOTE | ~2022-06-06 | CT_ITS ---
EXAMINATION: CT HEAD WITHOUT CONTRAST CLINICAL INFORMATION: Altered mental status COMPARISON: CT head 02/07/2022 TECHNIQUE: Contiguous axial imaging was performed from the skull base to vertex without intravenous administration of contrast. This CT examination was performed using dose optimization techniques as appropriate, variously including the following: *Automated exposure control *Adjustment of mA and/or kV according to patient size (this includes techniques or standardized protocols for targeted exams where dose is matched to indication/reason for exam; i.e. extremities or head) *Use of iterative reconstruction technique DLP: 1194 mGy-cm FINDINGS: There is no evidence of acute intracranial hemorrhage or territorial infarction. No abnormal mass effect or midline shift is seen. Fraire to white matter differentiation is well preserved. No extra-axial fluid collections are identified. Commensurate prominence of the ventricles and sulci is suggestive of generalized parenchymal volume loss. There is patchy periventricular and subcortical white matter hypoattenuation, suggestive of microangiopathic disease No acute calvarial fracture.. Paranasal sinuses and mastoid air cells are well-aerated. CT/CT head/brain wo IV con IMPRESSION: No CT evidence of acute intracranial hemorrhage or edematous territorial infarction. Chronic changes as detailed above..
--- NOTE | ~2022-06-06 | XR_ITS ---
EXAMINATION: XR CHEST CLINICAL INFORMATION: Failure to thrive COMPARISON: 02/07/2022. Chest CT earlier the same day. TECHNIQUE: Frontal view of the chest was obtained. FINDINGS: Subtle retrocardiac airspace opacity is better shown on the earlier chest CT. No pleural effusion or pneumothorax. Normal heart size. Calcified aortic arch. Degenerative changes of the bilateral shoulders. XR/XR chest 1V IMPRESSION: Retrocardiac left lower lobe airspace opacity consistent with aspiration and/or pneumonia.
--- NOTE | ~2022-06-06 | CT_ITS ---
EXAMINATION: CT CHEST WITHOUT CONTRAST CLINICAL INFORMATION: Cough, question aspiration. COMPARISON: CT 04/09/2022. TECHNIQUE: Multidetector volumetric CT imaging of the chest was done. Axial MIP volume rendering provided. Sagittal and coronal reformatted images were obtained. This CT examination was performed using dose optimization techniques as appropriate, variously including the following: *Automated exposure control *Adjustment of mA and/or kV according to patient size (this includes techniques or standardized protocols for targeted exams where dose is matched to indication/reason for exam; i.e. extremities or head) *Use of iterative reconstruction technique DLP: 1194 mGy-cm FINDINGS: LUNGS: Respiratory motion artifact limiting evaluation. Trachea and central airway are grossly patent. There are airspace opacities in the medial aspect of the left lower lobe, new from previous. Patchy airspace opacity in the peripheral aspect of the left upper lobe, new from previous. The previously seen ill-defined patchy opacities and tree-in-bud appearance in the right lower lobe posterior segment appear slightly improved as compared to previous. Evaluation of the nodules is limited by motion artifact. The additional nodules seen on the recent CT are not well visualized likely due to motion artifact. MEDIASTINUM: Thyroid lobes are symmetric. Subcentimeter mediastinal lymph nodes. No enlarged lymph nodes by size criteria in the mediastinum or carlos manuel. Normal caliber aorta. Atherosclerotic vascular calcification. Coronary artery calcification. Normal heart size. No pericardial effusion. PLEURA: There is no pleural effusion. No pleural mass or thickening. AXILLA: No lymphadenopathy. UPPER ABDOMEN: No acute findings in the partially visualized organs. OSSEOUS STRUCTURES: Multilevel degeneration in the spine. CT/CT chest wo IV con IMPRESSION: Respiratory motion artifact limiting evaluation. 1. Multifocal ill-defined airspace opacities in the medial aspect of the left lower lobe, new from previous. Patchy airspace opacities in the peripheral aspect of the left upper lobe, new from previous. Differential consideration includes sequela of aspiration, pneumonia. Interval improvement of the previously seen patchy airspace and tree-in-bud opacities in the right lower lobe. Recommend followup radiograph in 7-10 days for reassessment. 2. Respiratory motion artifact limits evaluation of the known pulmonary nodules, better appreciated on the recent CT of 04/09/2022. The largest of these on the current CT measures 5 mm, and on the prior CT measured 6 mm. According to the UPDATED 2017 Fleischner Society recommendations, the advised followup imaging for multiple solid nodules, the largest measuring 6 mm or greater, is: LOW RISK PATIENT: CT at 3-6 months, then consider CT at 18-24 months. HIGH RISK PATIENT: CT at 3-6 months, then at 18-24 months. Fleischner guidelines were followed.
[2022-06-06 09:40] VITALS: BP 140/81; PULSE 133; PULSE 81; RESP 12; TEMP 36.9; O2SAT 94; BMI 22.5
--- NOTE | 2022-06-06 09:41 | ED_ITS ---
HPI - Altered Mental Status General Chief Complaint: Altered Mental Status Stated Complaint: FTT Time Seen by Provider: 06/06/22 09:34 Source: EMS Mode of arrival: EMS Limitations: altered mental status History of Present Illness HPI narrative: This is a 77-year-old male past medical history significant for pneumonitis, generalized muscle weakness, gastritis with bleeding, esophageal ulcers, schizoaffective disorder, history of CVA, GERD, dysphagia, dysarthria and anarthria, anoxic brain damage presenting to the emergency department from [facility] for failure to thrive. According to staff from [facility] patient was not eating, food was falling out of his mouth, they note that patient has been extremely trauma this. Staff members also report that patient has not been answering questions. Unable to obtain history from patient as he is not responding to my questions. Patient appears comfortable and in no acute distress upon arrival. Arrives with EMS MD complaint: altered mental status and other (Adult failure to thrive) Related Data Home Medications Medication Instructions Recorded Confirmed acetaminophen 325 mg tablet 650 mg PO TID 08/26/21 02/07/22 diazepam 5 mg tablet 5 mg PO DAILY 08/26/21 02/07/22 docusate sodium 100 mg capsule 100 mg PO BID 08/26/21 02/07/22 levothyroxine 100 mcg tablet 1 tab PO DAILY 08/26/21 02/07/22 melatonin 3 mg tablet 3 mg PO BEDTIME PRN Insomnia 08/26/21 02/07/22 mirtazapine 30 mg tablet 1 tab PO BEDTIME 08/26/21 02/07/22 mirtazapine 7.5 mg tablet 1 tab PO BEDTIME 08/26/21 02/07/22 pantoprazole 40 mg tablet,delayed 80 mg PO DAILY 08/26/21 02/07/22 release peg 400-propylene glycol 0.4 %-0.3 1 drp ophthalmic (eye) TID PRN Dry 08/26/21 02/07/22 % eye drops (Systane Ultra) Eyes perphenazine 2 mg tablet 1 tab PO DAILY 08/26/21 02/07/22 thiamine HCl (vitamin B1) 100 mg 100 mg PO DAILY 08/26/21 02/07/22 tablet oxycodone-acetaminophen 5 mg-325 1 tab PO TID PRN Pain, Moderate 01/11/22 05/21/22 mg tablet calcium polycarbophil 625 mg 625 mg PO DAILY 02/07/22 02/07/22 tablet (Fiber (calcium polycarbophil)) diazepam 5 mg tablet 10 mg PO BEDTIME 02/07/22 02/07/22 lactulose 10 gram/15 mL oral 30 ml PO DAILY PRN Constipation 02/07/22 02/07/22 solution menthol 0.44 %-zinc oxide 20 % 1 ea topical TID 02/07/22 02/07/22 topical ointment polyethylene glycol 3350 17 gram 17 g PO DAILY 02/07/22 02/07/22 oral powder packet sennosides 8.6 mg-docusate sodium 1 tab-cap PO BEDTIME 02/07/22 02/07/22 50 mg tablet (Senna Plus) Previous Rx's Medication Instructions Recorded amoxicillin 875 mg-potassium 1 tab PO BID #20 tabs 02/09/22 clavulanate 125 mg tablet Allergies Allergy/AdvReac Type Severity Reaction Status Date / Time tuberculin, purified protein Allergy Unknown UNKNOWN Verified 02/07/22 17:13 deriva [TUBERCULIN,PURIF.PROT.DERIV.] Review of Systems Review of Systems: Yes Unobtainable due to mental status [facility] Past Medical History Attestation statement: The following information was validated with the patient. Source: old records reviewed and nursing notes reviewed Medical History Acute gastritis with hemorrhage Anoxic brain damage, not elsewhere classified Candidal stomatitis Constipation, unspecified Degenerative disease of nervous system, unspecified Diaphragmatic hernia without obstruction or gangrene Dysarthria and anarthria Dysphagia Dysphagia, oral phase Dysphagia, oropharyngeal phase Essential (primary) hypertension Gastro-esophageal reflux disease without esophagitis Hypermetropia, unspecified eye Hypothyroidism Muscle weakness (generalized) Nonspecific reaction to tuberculin skin test without active tuberculosis Other gastritis with bleeding Other lack of coordination Other transient cerebral ischemic attacks and related syndromes Other voice and resonance disorders Personal history of COVID-19 Personal history of other diseases of the respiratory system 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 Pneumonitis due to inhalation of food and vomit Preglaucoma, unspecified, unspecified eye Schizoaffective disorder Tinea pedis Ulcer of esophagus with bleeding Unspecified cataract Unsteadiness on feet Social History Social History Household Members: Other Household Members Other:: [facility] Housing: [facility] Unable to assess alcohol history related to: Unable to respond Alcohol intake: unknown Patient Tobacco Use Status: Never used Tobacco Advance Directives: Yes Advance Directives on File: Yes Advance Directives Date on File: 10/03/20 service: No Current occupational status: disabled Physical Exam ED Vital Signs: Vital Signs - 24 hr 06/06/22 09:40 06/06/22 09:48 06/06/22 12:03 Temperature 98.5 F 98.5 F Pulse Rate 81 75 Respiratory Rate 12 20 Blood Pressure 94/62 144/64 H Pulse Oximetry 100 Oxygen Delivery Method Room Air BMI result Body Mass Index 22.5 Stable vital signs Appearance: Alert.? Moving all extremities. No acute distress.? Patient appears extremely tremulous Head: Normocephalic, atraumatic, no step-offs or deformities Eyes: Pupils equal, round and reactive to light.? ENT: Pharynx normal.? Neck: Normal inspection.? Neck supple.? CVS: Normal heart rate and rhythm.? Pulses normal.? Respiratory: No respiratory distress.? Crackles noted bilaterally however worse to the left lower lobe. Abdomen: Soft and nontender.? Skin: Skin warm and dry.? Normal skin color.? Normal skin turgor.? Extremities: No lower extremity edema.? No calf ttp. Global weakness. Back: No midline tenderness, no C-spine tenderness Neuro: Alert, moving all extremities, unable to actively participate and neurological examination. Unable to assess an NIH stroke scale. Course Course Course Narrative: Spoke to [facility] Doctor Dr. Ornelas, who is aware patient is here and will follow this case. Will call and update w/ any new information Reevaluation(s) Reevaluation #1: CBC with leukocytosis and a normal specific anemia which appears to be patient's baseline. Chemistry without electrolyte abnormalities requiring intervention. BUN slightly elevated, likely secondary to poor po intake. Lactic negative. Trop negative, ekg non ischemic. UA w/o infection. Ethanol negative. CHAVEZ + for benzos. COVID -. Head CT with no acute findings. Chronic changes noted however. Time: 10:55 Reevaluation #2: Ammonia wnl. Unlikley Hepating encephalopathy. CT chest pending. Time: 11:42 Reevaluation #3: Chest CT with concerns for aspiration pneumonia, patient given Zosyn. Patient's vital signs are stable and saturating well on room air, appears to be in no acute distress. Plan at this time is to admit patient to the hospitalist team for further evaluation and treatment. Time: 12:11 MDM - Altered Mental Status MDM Narrative Medical decision making narrative: 0952 This is a 77-year-old male presenting from [facility] for failure to thrive, increased shaking, weakness X1 day. Physical examination appears to be around patient's baseline however patient is very tremulous, patient has crackles bilaterally and worse to the left lower lobe. Patient awake, alert, moving extremities. Appears to be in no acute distress. No evidence signs of trauma on exam. Will rule out electrolyte abnormalities, UTI, infections, intracranial hemorrhage/intracranial pathologies. Vital signs are stable, unlikely that this is a PE. Unlikely ACS however will obtain troponin and EKG. Will also rule out hepatic encephalopathy,. Likley uti or aspiration PNA. Medical Records Attestation: I reviewed the patient's medical records. Lab Data Attestation: I reviewed the patient's lab results. Result diagrams: 06/06/22 10:30 06/06/22 10:31 Labs: Lab Results 06/06/22 06/06/22 06/06/22 Range/Units 10:30 10:31 10:31 WBC 11.3 H (4.8-10.8) X10*3/uL RBC 4.67 (4.60-5.80) X10*6/uL Hgb 12.3 L (14.0-18.0) g/dl Hct 40.6 L (42.0-52.0) % MCV 86.9 (80.0-98.0) fL MCH 26.3 L (27.0-33.0) pg MCHC 30.3 L (31.0-36.0) g/dl RDW 17.8 H (11.0-16.0) % Plt Count 297 D (160-400) X10*3/uL MPV 9.0 L (9.4-12.4) fL Immature Gran % (Auto) 0.4 (0.0-0.4) % Neut % (Auto) 80.9 H (45-73) % Lymph % (Auto) 6.6 L (20-40) % Cole % (Auto) 11.0 (2-11) % Eos % (Auto) 0.8 (0-4) % Baso % (Auto) 0.3 (0-2) % Lymph # (Auto) 0.7 L (1.2-4.9) X10*3/uL Cole # (Auto) 1.2 (0.1-1.2) X10*3/uL Eos # (Auto) 0.1 (0.0-0.4) X10*3/uL Baso # (Auto) 0.0 (0.0-0.2) X10*3/uL Abs Immat Gran (auto) 0.04 H (0.00-0.03) X10*3/uL Absolute Neuts (auto) 9.1 H (2.0-8.3) x10*3/uL Absolute Nucleated RBC 0.000 (0.0-0.012) X10*3/uL Nucleated RBC % (auto) 0.0 (0.0-0.2) /100WBC Sodium 146 H (135-145) mmol/L Potassium 3.9 (3.3-5.1) mmol/L Chloride 108 (96-108) mmol/L Carbon Dioxide 27 (22-29) mmol/L Anion Gap 15 (12-20) BUN 24 H D (9-16) mg/dL Creatinine 0.79 (0.5-1.4) mg/dL Estim Creat Clear Calc 76.9 Estimated GFR > 60 Random Glucose 95 (60-115) mg/dL Lactic Acid 0.7 (0.5-2.0) mmol/L Calcium 9.1 (8.4-10.2) mg/dL Magnesium 2.1 (1.6-2.6) mg/dL Total Bilirubin 0.4 (0.0-1.0) mg/dL AST 37 D (5-37) U/L ALT 15 (0-40) U/L Alkaline Phosphatase 71 D (39-117) U/L Ammonia (13-55) umol/L Troponin I High Sens (<3.5-35.0) ng/L Total Protein 7.4 D (6.5-8.0) g/dL Albumin 4.0 D (3.5-5.0) g/dL Urine Color Urine Appearance Urine pH (5.0-9.0) Ur Specific Midway (1.005-1.025) Urine Protein (Neg-Trace) mg/dL Urine Glucose (UA) (Negative) mg/dL Urine Ketones (Negative) mg/dL Urine Blood (Negative) Urine Nitrite (Negative) Ur Leukocyte Esterase (Negative) Urine RBC (0-2) /HPF Urine WBC (0-5) /HPF Ur Squamous Epith Cells (0-2) /HPF Urine Bacteria (None Seen) Hyaline Casts (0-2) /LPF Urine Opiates Screen (Not Detect) Urine Fentanyl Screen (Not Detect) Ur Barbiturates Screen (Not Detect) Ur Phencyclidine Scrn (Not Detect) Ur Amphetamines Screen (Not Detect) U Benzodiazepines Scrn (Not Detect) Urine Cocaine Screen (Not Detect) U Marijuana (THC) Screen (Not Detect) Ethyl Alcohol < 10 mg/dL COVID-19 (KATELIN) (Negative) COVID-19 Clin Com 06/06/22 06/06/22 06/06/22 Range/Units 10:31 10:32 10:32 WBC (4.8-10.8) X10*3/uL RBC (4.60-5.80) X10*6/uL Hgb (14.0-18.0) g/dl Hct (42.0-52.0) % MCV (80.0-98.0) fL MCH (27.0-33.0) pg MCHC (31.0-36.0) g/dl RDW (11.0-16.0) % Plt Count (160-400) X10*3/uL MPV (9.4-12.4) fL Immature Gran % (Auto) (0.0-0.4) % Neut % (Auto) (45-73) % Lymph % (Auto) (20-40) % Cole % (Auto) (2-11) % Eos % (Auto) (0-4) % Baso % (Auto) (0-2) % Lymph # (Auto) (1.2-4.9) X10*3/uL Cole # (Auto) (0.1-1.2) X10*3/uL Eos # (Auto) (0.0-0.4) X10*3/uL Baso # (Auto) (0.0-0.2) X10*3/uL Abs Immat Gran (auto) (0.00-0.03) X10*3/uL Absolute Neuts (auto) (2.0-8.3) x10*3/uL Absolute Nucleated RBC (0.0-0.012) X10*3/uL Nucleated RBC % (auto) (0.0-0.2) /100WBC Sodium (135-145) mmol/L Potassium (3.3-5.1) mmol/L Chloride (96-108) mmol/L Carbon Dioxide (22-29) mmol/L Anion Gap (12-20) BUN (9-16) mg/dL Creatinine (0.5-1.4) mg/dL Estim Creat Clear Calc Estimated GFR Random Glucose (60-115) mg/dL Lactic Acid (0.5-2.0) mmol/L Calcium (8.4-10.2) mg/dL Magnesium (1.6-2.6) mg/dL Total Bilirubin (0.0-1.0) mg/dL AST (5-37) U/L ALT (0-40) U/L Alkaline Phosphatase (39-117) U/L Ammonia 29 (13-55) umol/L Troponin I High Sens 7.8 (<3.5-35.0) ng/L Total Protein (6.5-8.0) g/dL Albumin (3.5-5.0) g/dL Urine Color Urine Appearance Urine pH (5.0-9.0) Ur Specific Midway (1.005-1.025) Urine Protein (Neg-Trace) mg/dL Urine Glucose (UA) (Negative) mg/dL Urine Ketones (Negative) mg/dL Urine Blood (Negative) Urine Nitrite (Negative) Ur Leukocyte Esterase (Negative) Urine RBC (0-2) /HPF Urine WBC (0-5) /HPF Ur Squamous Epith Cells (0-2) /HPF Urine Bacteria (None Seen) Hyaline Casts (0-2) /LPF Urine Opiates Screen (Not Detect) Urine Fentanyl Screen (Not Detect) Ur Barbiturates Screen (Not Detect) Ur Phencyclidine Scrn (Not Detect) Ur Amphetamines Screen (Not Detect) U Benzodiazepines Scrn (Not Detect) Urine Cocaine Screen (Not Detect) U Marijuana (THC) Screen (Not Detect) Ethyl Alcohol mg/dL COVID-19 (KATELIN) Negative (Negative) COVID-19 Clin Com See Note 06/06/22 06/06/22 Range/Units 10:57 10:57 WBC (4.8-10.8) X10*3/uL RBC (4.60-5.80) X10*6/uL Hgb (14.0-18.0) g/dl Hct (42.0-52.0) % MCV (80.0-98.0) fL MCH (27.0-33.0) pg MCHC (31.0-36.0) g/dl RDW (11.0-16.0) % Plt Count (160-400) X10*3/uL MPV (9.4-12.4) fL Immature Gran % (Auto) (0.0-0.4) % Neut % (Auto) (45-73) % Lymph % (Auto) (20-40) % Cole % (Auto) (2-11) % Eos % (Auto) (0-4) % Baso % (Auto) (0-2) % Lymph # (Auto) (1.2-4.9) X10*3/uL Cole # (Auto) (0.1-1.2) X10*3/uL Eos # (Auto) (0.0-0.4) X10*3/uL Baso # (Auto) (0.0-0.2) X10*3/uL Abs Immat Gran (auto) (0.00-0.03) X10*3/uL Absolute Neuts (auto) (2.0-8.3) x10*3/uL Absolute Nucleated RBC (0.0-0.012) X10*3/uL Nucleated RBC % (auto) (0.0-0.2) /100WBC Sodium (135-145) mmol/L Potassium (3.3-5.1) mmol/L Chloride (96-108) mmol/L Carbon Dioxide (22-29) mmol/L Anion Gap (12-20) BUN (9-16) mg/dL Creatinine (0.5-1.4) mg/dL Estim Creat Clear Calc Estimated GFR Random Glucose (60-115) mg/dL Lactic Acid (0.5-2.0) mmol/L Calcium (8.4-10.2) mg/dL Magnesium (1.6-2.6) mg/dL Total Bilirubin (0.0-1.0) mg/dL AST (5-37) U/L ALT (0-40) U/L Alkaline Phosphatase (39-117) U/L Ammonia (13-55) umol/L Troponin I High Sens (<3.5-35.0) ng/L Total Protein (6.5-8.0) g/dL Albumin (3.5-5.0) g/dL Urine Color Dark Yellow Urine Appearance Clear Urine pH 6.0 (5.0-9.0) Ur Specific Midway >= 1.030 H (1.005-1.025) Urine Protein 30 (1+) H (Neg-Trace) mg/dL Urine Glucose (UA) Negative (Negative) mg/dL Urine Ketones Trace (Negative) mg/dL Urine Blood Negative (Negative) Urine Nitrite Negative (Negative) Ur Leukocyte Esterase Trace H (Negative) Urine RBC 0-2 (0-2) /HPF Urine WBC 0-5 (0-5) /HPF Ur Squamous Epith Cells 0-2 (0-2) /HPF Urine Bacteria None Seen (None Seen) Hyaline Casts 3-5 (0-2) /LPF Urine Opiates Screen Not Detected (Not Detect) Urine Fentanyl Screen Not Detected (Not Detect) Ur Barbiturates Screen Not Detected (Not Detect) Ur Phencyclidine Scrn Not Detected (Not Detect) Ur Amphetamines Screen Not Detected (Not Detect) U Benzodiazepines Scrn POSITIVE H (Not Detect) Urine Cocaine Screen Not Detected (Not Detect) U Marijuana (THC) Screen Not Detected (Not Detect) Ethyl Alcohol mg/dL COVID-19 (KATELIN) (Negative) COVID-19 Clin Com ECG Data ECG #1: Attestation: I personally reviewed and interpreted this ECG as follows: ECG interpretation date: 06/06/22 ECG interpretation time: 10:56 Prior ECG tracings: available for review Interpretation: Ventricular rate of 71, [place] normal, QRS normal, QT/QTC normal. EKG with normal sinus rhythm. No ST elevations or inversions concerning for ischemia no significant changes when compared to previous. Critical Care Time Critical Care Time Critical Care Time: Yes Total Critical Care Time: 35 Attestation: I attest to this time spent taking care of the patient, obtaining history, physical, reviewing labs, imaging, speaking to my attending, speaking to specialist. Discharge Plan Discharge Clinical Impression: Physical deconditioning, Tremor, Aspiration pneumonia Patient Disposition: Admitted As Inpatient Prescriptions: No Action sennosides-docusate sodium [Senna Plus] 8.6-50 mg Tablet 1 tab-cap PO BEDTIME calcium polycarbophil [Fiber (calcium polycarbophil)] 625 mg Tablet 625 mg PO DAILY diazepam 5 mg tablet 10 mg PO BEDTIME lactulose 10 gram/15 mL solution 30 ml PO DAILY PRN (Reason: Constipation) menthol-zinc oxide 0.44-20 % Ointment 1 ea TOPICAL TID Rx Instructions: TO COCCYX polyethylene glycol 3350 17 gram powder in packet 17 g PO DAILY amoxicillin-pot clavulanate 875-125 mg tablet 1 tab PO BID Qty: 20 0RF acetaminophen 325 mg Tablet 650 mg PO TID perphenazine 2 mg tablet 1 tab PO DAILY thiamine HCl (vitamin B1) 100 mg Tablet 100 mg PO DAILY melatonin 3 mg Tablet 3 mg PO BEDTIME PRN (Reason: Insomnia) levothyroxine 100 mcg tablet 1 tab PO DAILY pantoprazole 40 mg Tablet,Delayed Release (Dr/Ec) 80 mg PO DAILY mirtazapine 30 mg tablet 1 tab PO BEDTIME docusate sodium 100 mg Capsule 100 mg PO BID diazepam 5 mg tablet 5 mg PO DAILY Systane Ultra 0.4-0.3 % Drops 1 drp OPHTHALMIC (EYE) TID PRN (Reason: Dry Eyes) mirtazapine 7.5 mg tablet 1 tab PO BEDTIME oxycodone-acetaminophen 5-325 mg tablet 1 tab PO TID PRN (Reason: Pain, Moderate)
[2022-06-06 09:48] VITALS: BP 94/62; TEMP 36.9
--- NOTE | 2022-06-06 09:53 | ECG_ITS ---
Test Reason : WEAKNESS Blood Pressure : / mmHG Vent. Rate : 071 BPM Atrial Rate : 071 BPM P-R Int : 164 ms QRS Dur : 086 ms QT Int : 390 ms P-R-T Axes : 058 -24 037 degrees QTc Int : 423 ms Normal sinus rhythm Normal ECG When compared with ECG of 07-FEB-2022 18:50, No significant change was found Referred By: Jaja Terrazas Electronically Signed By:SANDRITA MCNAMARA
[2022-06-06 10:36] LABS: MANUAL DIFF FLAG NO
[2022-06-06] MEDS: 0.9 % Sodium Chloride 1,000 ML 999 ML IV (10:40)
[2022-06-06 10:41] LABS: Basophils Percent Auto 0.3 % (0-2); Eosinophils Absolute Auto 0.1 X10*3/uL (0.0-0.4); Eosinophils Percent Auto 0.8 % (0-4); Hematocrit 40.6 % (42.0-52.0); Hemoglobin 12.3 g/dl (14.0-18.0); Imm Gran Abs Auto 0.04 X10*3/uL (0.00-0.03); Imm Gran Pct Auto 0.4 % (0.0-0.4); Lymphocytes Absolute Auto 0.7 X10*3/uL (1.2-4.9); Lymphocytes Percent Auto 6.6 % (20-40); Mean Corpuscular HGB Conc 30.3 g/dl (31.0-36.0); Mean Corpuscular Hemoglobin 26.3 pg (27.0-33.0); Mean Corpuscular Volume 86.9 fL (80.0-98.0); Monocytes Absolute Auto 1.2 X10*3/uL (0.1-1.2); Neutrophils Absolute Auto 9.1 x10*3/uL (2.0-8.3); Neutrophils Percent Auto 80.9 % (45-73); Platelet Count 297 X10*3/uL (160-400); Red Blood Count 4.67 X10*6/uL (4.60-5.80); Red Cell Distribution Width 17.8 % (11.0-16.0); White Blood Count 11.3 X10*3/uL (4.8-10.8)
[2022-06-06 10:57] LABS: Lactic Acid 0.7 mmol/L (0.5-2.0)
[2022-06-06 11:01] LABS: Alanine Aminotransferase 15 U/L (0-40); Alkaline Phosphatase 71 U/L (39-117); Anion Gap 15 (12-20); Aspartate Amino Transferase 37 U/L (5-37); Bilirubin Total 0.4 mg/dL (0.0-1.0); Blood Urea Nitrogen 24 mg/dL (9-16); Calcium 9.1 mg/dL (8.4-10.2); Carbon Dioxide 27 mmol/L (22-29); Chloride 108 mmol/L (96-108); Creatinine Clr Calc Pharmacy 76.9; Estimated Glomerular Filt Rate > 60; Ethanol < 10 mg/dL; Glucose Random 95 mg/dL (60-115); Magnesium 2.1 mg/dL (1.6-2.6); Potassium 3.9 mmol/L (3.3-5.1); Sodium 146 mmol/L (135-145); Total Protein 7.4 g/dL (6.5-8.0)
[2022-06-06] MEDS: Piperacillin Sodium/Tazobactam 3.375 GM in 0.9 % Sodium Chloride 50 ML IV (11:04)
[2022-06-06 11:05] LABS: Appearance Urine Clear; Color Urine Dark Yellow; Glucose Urine UA Negative (Negative); Leukocyte Esterase Urine Trace (Negative); Nitrite Urine Negative (Negative); Specific Gravity - Urine >= 1.030 (1.005-1.025); UMIC TRIGGER UACC YES; Urine Blood Negative (Negative); Urine Ketones Trace mg/dL (Negative); Urine Protein 30 (1+) mg/dL (Neg-Trace)
[2022-06-06 11:07] LABS: Troponin-I High Sensitivity 7.8 ng/L (<3.5-35.0)
[2022-06-06 11:08] LABS: COVID-19 Test Negative (Negative)
--- NOTE | 2022-06-06 11:10 | PC.NURSE ---
Urine sample obtained via straight cath. Procedure tolerated well.
[2022-06-06 11:20] LABS: Ammonia 29 umol/L (13-55)
[2022-06-06 11:23] LABS: Bacteria Urine None Seen (None Seen); RBC Urine 0-2 /HPF (0-2); Squamous Epithelial Cell Urine 0-2 /HPF (0-2); WBC Urine 0-5 /HPF (0-5)
[2022-06-06 11:24] LABS: Amphetamine Screen Urine Not Detected (Not Detect); Barbiturates, Urine Not Detected (Not Detect); Benzodiazepines Screen Urine POSITIVE (Not Detect); Cannabinoid Screen Urine Not Detected (Not Detect); Cocaine Screen Urine Not Detected (Not Detect); Fentanyl, urine Not Detected (Not Detect); Opiate Screen Urine Not Detected (Not Detect); Phencyclidine Screen Urine Not Detected (Not Detect)
[2022-06-06 12:03] VITALS: BP 144/64; PULSE 75; RESP 20; O2SAT 100
--- NOTE | 2022-06-06 12:37 | PC.NURSE ---
coarse crackles noted to L upper lung. SaO2 unable to obtain on pts fingers, pedi-probe to pts forehead
--- NOTE | 2022-06-06 13:02 | PM.IMHP ---
History of Present Illness Date of Service: 06/06/22 Chief Complaint: Altered mental status 77-year-old male past medical history significant for pneumonitis, generalized muscle weakness, gastritis with bleeding, esophageal ulcers, schizoaffective disorder, history of CVA, GERD, dysphagia, dysarthria and anarthria, anoxic brain damage presenting to the emergency department from [facility] for failure to thrive.? According to staff from [facility] patient was not eating, food was falling out of his mouth, they note that patient has been extremely trauma this.? Staff members also report that patient has not been answering questions. Work up in ER consistant with aspiration pneumonia Review of Systems Review of Systems: Unable to obtain [facility] Medical History (Updated 06/06/22 @ 13:08 by Sampson Ornelas DO) Acute gastritis with hemorrhage Anoxic brain damage, not elsewhere classified Candidal stomatitis Constipation, unspecified Degenerative disease of nervous system, unspecified Diaphragmatic hernia without obstruction or gangrene Dysarthria and anarthria Dysphagia Dysphagia, oral phase Dysphagia, oropharyngeal phase Essential (primary) hypertension Gastro-esophageal reflux disease without esophagitis Hypermetropia, unspecified eye Hypothyroidism Muscle weakness (generalized) Nonspecific reaction to tuberculin skin test without active tuberculosis Other gastritis with bleeding Other lack of coordination Other transient cerebral ischemic attacks and related syndromes Other voice and resonance disorders Personal history of COVID-19 Personal history of other diseases of the respiratory system 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 Pneumonitis due to inhalation of food and vomit Preglaucoma, unspecified, unspecified eye Schizoaffective disorder Tinea pedis Ulcer of esophagus with bleeding Unspecified cataract Unsteadiness on feet Social History Household Members: Other Household Members Other:: [facility] resident Housing: Retirement Unable to assess alcohol history related to: Unable to respond Alcohol intake: unknown Patient Tobacco Use Status: Never used Tobacco Advance Directives: Yes Advance Directives on File: Yes Advance Directives Date on File: 10/03/20 service: No Current occupational status: disabled Meds Allergies Allergy/AdvReac Type Severity Reaction Status Date / Time tuberculin, purified protein Allergy Unknown UNKNOWN Verified 02/07/22 17:13 deriva [TUBERCULIN,PURIF.PROT.DERIV.] Active Medications: Current Medications Piperacillin Sod/Tazobactam (Sod 3.375 gm/ Sodium Chloride) 50 mls @ 100 mls/hr IV Q6H [facility] Pharmacy Consult (Consult Rx Perform Med Rec) 1 each MISCELLANE ONCE PRN PRN Reason: Consult order Pharmacy Consult (Consult Rx Perform Med Rec) 1 each MISCELLANE ONCE PRN PRN Reason: Consult order Sodium Chloride (0.9 % Sodium Chloride Flush 3 Ml Syringe) 3 ml IVFLUSH QSHIFT [facility] Home Medications Medication Instructions Recorded Confirmed Last Taken Type acetaminophen 325 mg tablet 650 mg PO TID 08/26/21 02/07/22 Unknown History diazepam 5 mg tablet 5 mg PO DAILY 08/26/21 02/07/22 Unknown History docusate sodium 100 mg capsule 100 mg PO BID 08/26/21 02/07/22 Unknown History melatonin 3 mg tablet 3 mg PO BEDTIME PRN Insomnia 08/26/21 02/07/22 Unknown History mirtazapine 30 mg tablet 1 tab PO BEDTIME 08/26/21 02/07/22 Unknown History mirtazapine 7.5 mg tablet 1 tab PO BEDTIME 08/26/21 02/07/22 Unknown History pantoprazole 40 mg tablet,delayed 80 mg PO DAILY 08/26/21 02/07/22 Unknown History release peg 400-propylene glycol 0.4 %-0.3 1 drp ophthalmic (eye) TID PRN Dry 08/26/21 02/07/22 Unknown History % eye drops (Systane Ultra) Eyes perphenazine 2 mg tablet 1 tab PO DAILY 08/26/21 02/07/22 Unknown History thiamine HCl (vitamin B1) 100 mg 100 mg PO DAILY 08/26/21 02/07/22 Unknown History tablet oxycodone-acetaminophen 5 mg-325 1 tab PO TID PRN Pain, Moderate 09/30/21 02/07/22 Unknown History mg tablet calcium polycarbophil 625 mg 625 mg PO DAILY 02/07/22 02/07/22 Unknown History tablet (Fiber (calcium polycarbophil)) diazepam 5 mg tablet 10 mg PO BEDTIME 02/07/22 02/07/22 Unknown History lactulose 10 gram/15 mL oral 30 ml PO DAILY PRN Constipation 02/07/22 02/07/22 Unknown History solution menthol 0.44 %-zinc oxide 20 % 1 ea topical TID 02/07/22 02/07/22 Unknown History topical ointment polyethylene glycol 3350 17 gram 17 g PO DAILY 02/07/22 02/07/22 Unknown History oral powder packet sennosides 8.6 mg-docusate sodium 1 tab-cap PO BEDTIME 02/07/22 02/07/22 Unknown History 50 mg tablet (Senna Plus) latanoprost 0.005 % eye drops drp ophthalmic (eye) 06/06/22 06/06/22 Unknown History levothyroxine 112 mcg tablet 1 tab PO DAILY 06/06/22 Unknown History omeprazole 20 mg capsule,delayed 1 cap PO DAILY 06/06/22 Unknown History release Physical Exam Vital Signs and Narrative: Vital Signs: Last Vital Signs Temp 98.5 F 06/06/22 09:48 Pulse 75 06/06/22 12:03 Resp 20 06/06/22 12:03 BP 144/64 H 06/06/22 12:03 Pulse Ox 100 06/06/22 12:03 O2 Del Method 06/06/22 12:03 BMI result Body Mass Index 22.5 Const: Other: Awake alert mumbling nonsensically Resp: Other: Diminished at bases with crackles left lower lobe Cardio: Other: No S4; positive S1-S2; no S3 murmurs rubs or gallops GI: Other: Soft nontender nondistended normoactive bowel sounds Extrem: Other: No edema bilaterally Results Labs CBC and Chem 7: 06/06/22 10:30 06/06/22 10:31 Labs: Laboratory Results - last 24 hr 06/06/22 06/06/22 06/06/22 10:30 10:31 10:31 MCV 86.9 MCH 26.3 L MCHC 30.3 L RDW 17.8 H Plt Count 297 D MPV 9.0 L Immature Gran % (Auto) 0.4 Neut % (Auto) 80.9 H Lymph % (Auto) 6.6 L Parmer % (Auto) 11.0 Eos % (Auto) 0.8 Baso % (Auto) 0.3 Lymph # (Auto) 0.7 L Parmer # (Auto) 1.2 Eos # (Auto) 0.1 Baso # (Auto) 0.0 Abs Immat Gran (auto) 0.04 H Absolute Neuts (auto) 9.1 H Absolute Nucleated RBC 0.000 Nucleated RBC % (auto) 0.0 Anion Gap 15 Estim Creat Clear Calc 76.9 Estimated GFR > 60 Random Glucose 95 Lactic Acid 0.7 Calcium 9.1 Magnesium 2.1 Total Bilirubin 0.4 AST 37 D ALT 15 Alkaline Phosphatase 71 D Ammonia Total Protein 7.4 D Albumin 4.0 D Urine Color Urine Appearance Urine pH Ur Specific [place] Urine Protein Urine Glucose (UA) Urine Ketones Urine Blood Urine Nitrite Ur Leukocyte Esterase Urine RBC Urine WBC Ur Squamous Epith Cells Urine Bacteria Hyaline Casts Urine Opiates Screen Urine Fentanyl Screen Ur Barbiturates Screen Ur Phencyclidine Scrn Ur Amphetamines Screen U Benzodiazepines Scrn Urine Cocaine Screen U Marijuana (THC) Screen Ethyl Alcohol < 10 COVID-19 (KATELIN) COVID-19 Clin Com 06/06/22 06/06/22 06/06/22 10:31 10:32 10:57 MCV MCH MCHC RDW Plt Count MPV Immature Gran % (Auto) Neut % (Auto) Lymph % (Auto) Parmer % (Auto) Eos % (Auto) Baso % (Auto) Lymph # (Auto) Parmer # (Auto) Eos # (Auto) Baso # (Auto) Abs Immat Gran (auto) Absolute Neuts (auto) Absolute Nucleated RBC Nucleated RBC % (auto) Anion Gap Estim Creat Clear Calc Estimated GFR Random Glucose Lactic Acid Calcium Magnesium Total Bilirubin AST ALT Alkaline Phosphatase Ammonia 29 Total Protein Albumin Urine Color Urine Appearance Urine pH Ur Specific [place] Urine Protein Urine Glucose (UA) Urine Ketones Urine Blood Urine Nitrite Ur Leukocyte Esterase Urine RBC Urine WBC Ur Squamous Epith Cells Urine Bacteria Hyaline Casts Urine Opiates Screen Not Detected Urine Fentanyl Screen Not Detected Ur Barbiturates Screen Not Detected Ur Phencyclidine Scrn Not Detected Ur Amphetamines Screen Not Detected U Benzodiazepines Scrn POSITIVE H Urine Cocaine Screen Not Detected U Marijuana (THC) Screen Not Detected Ethyl Alcohol COVID-19 (KATELIN) Negative COVID-19 Clin Com See Note 06/06/22 10:57 MCV MCH MCHC RDW Plt Count MPV Immature Gran % (Auto) Neut % (Auto) Lymph % (Auto) Parmer % (Auto) Eos % (Auto) Baso % (Auto) Lymph # (Auto) Parmer # (Auto) Eos # (Auto) Baso # (Auto) Abs Immat Gran (auto) Absolute Neuts (auto) Absolute Nucleated RBC Nucleated RBC % (auto) Anion Gap Estim Creat Clear Calc Estimated GFR Random Glucose Lactic Acid Calcium Magnesium Total Bilirubin AST ALT Alkaline Phosphatase Ammonia Total Protein Albumin Urine Color Dark Yellow Urine Appearance Clear Urine pH 6.0 Ur Specific [place] >= 1.030 H Urine Protein 30 (1+) H Urine Glucose (UA) Negative Urine Ketones Trace Urine Blood Negative Urine Nitrite Negative Ur Leukocyte Esterase Trace H Urine RBC 0-2 Urine WBC 0-5 Ur Squamous Epith Cells 0-2 Urine Bacteria None Seen Hyaline Casts 3-5 Urine Opiates Screen Urine Fentanyl Screen Ur Barbiturates Screen Ur Phencyclidine Scrn Ur Amphetamines Screen U Benzodiazepines Scrn Urine Cocaine Screen U Marijuana (THC) Screen Ethyl Alcohol COVID-19 (KATELIN) COVID-19 Clin Com Imaging Radiologist's Impressions: Impressions Chest CT 06/06/22 10:17 IMPRESSION: Respiratory motion artifact limiting evaluation. 1. Multifocal ill-defined airspace opacities in the medial aspect of the left lower lobe, new from previous. Patchy airspace opacities in the peripheral aspect of the left upper lobe, new from previous. Differential consideration includes sequela of aspiration, pneumonia. Interval improvement of the previously seen patchy airspace and tree-in-bud opacities in the right lower lobe. Recommend followup radiograph in 7-10 days for reassessment. 2. Respiratory motion artifact limits evaluation of the known pulmonary nodules, better appreciated on the recent CT of 04/09/2022. The largest of these on the current CT measures 5 mm, and on the prior CT measured 6 mm. According to the UPDATED 2017 Fleischner Society recommendations, the advised followup imaging for multiple solid nodules, the largest measuring 6 mm or greater, is: LOW RISK PATIENT: CT at 3-6 months, then consider CT at 18-24 months. HIGH RISK PATIENT: CT at 3-6 months, then at 18-24 months. Fleischner guidelines were followed. Head CT 06/06/22 10:17 IMPRESSION: No CT evidence of acute intracranial hemorrhage or edematous territorial infarction. Chronic changes as detailed above.. Chest X-Ray 06/06/22 11:05 IMPRESSION: Retrocardiac left lower lobe airspace opacity consistent with aspiration and/or pneumonia. Assessment and Plan (1) Aspiration pneumonia: Status: Acute (2) Essential (primary) hypertension: Status: Acute (3) Schizoaffective disorder: Status: Acute Plan 77-year-old male well known free from [facility]. History of pneumonitis/aspirations brought in for general weakness and overall change in mental status. Workup in the emergency room consistent with aspiration pneumonia 1. Aspiration pneumonia -IV Zosyn 3.375 q.6 -DuoNebs q.4 hours p.r.n. -titrate O2 -verify patient's diet at [facility]... Speech eval 2. Hypertension -acceptable control on current therapies -adjust as indicated 3. Schizoaffective disorder -med regimen as at [facility] -p.r.n. Changes as dictated by clinical course 4. GERD -continue PPI Full code Boots Will require 2 midnights going forward for IV antibiotics to treat aspiration pneumonia. This cannot be achieved in a less acute setting Quality Stroke Does the patient have a stroke diagnosis?: No VTE Prior VTE?: No VTE Risk Level:: Medical - moderate - high VTE Device Contraindication: Treatment Not Indicated VTE Drug Contraindication: N/A - Med Ordered
--- NOTE | 2022-06-06 13:14 | PHA.MEDREC ---
Pharmacy Consult ? Medication Reconciliation Pharmacy has completed the medication reconciliation. Patient could not answer any of my questions. Patient had list from [employer] and used list with claim history to verify meds.
[2022-06-06 14:25] VITALS: BP 147/65; PULSE 93; RESP 19; O2SAT 100
[2022-06-06] MEDS: 0.9 % Sodium Chloride Flush 3 ML SYRINGE IVFLUSH (17:09)
[2022-06-06 17:12] VITALS: BP 149/68; PULSE 100; RESP 22; O2SAT 96
[2022-06-07 01:08] VITALS: BP 140/70; PULSE 88; RESP 20; TEMP 36.8; O2SAT 94
[2022-06-07 06:27] VITALS: BP 139/68; PULSE 69; RESP 18; TEMP 36.8; O2SAT 95
[2022-06-07 07:39] VITALS: BP 131/65; PULSE 83; RESP 16; TEMP 36.8; O2SAT 95
[2022-06-07] MEDS: 0.9 % Sodium Chloride Flush 3 ML SYRINGE IVFLUSH (07:44)
[2022-06-07 08:09] LABS: MANUAL DIFF FLAG NO
[2022-06-07 08:15] LABS: Basophils Percent Auto 0.5 % (0-2); Eosinophils Absolute Auto 0.1 X10*3/uL (0.0-0.4); Hematocrit 37.5 % (42.0-52.0); Hemoglobin 11.4 g/dl (14.0-18.0); Imm Gran Abs Auto 0.01 X10*3/uL (0.00-0.03); Imm Gran Pct Auto 0.1 % (0.0-0.4); Lymphocytes Percent Auto 11.3 % (20-40); Mean Corpuscular HGB Conc 30.4 g/dl (31.0-36.0); Mean Corpuscular Hemoglobin 26.5 pg (27.0-33.0); Mean Platelet Volume 9.4 fL (9.4-12.4); Monocytes Absolute Auto 0.9 X10*3/uL (0.1-1.2); Monocytes Percent Auto 9.9 % (2-11); Neutrophils Absolute Auto 6.6 x10*3/uL (2.0-8.3); Neutrophils Percent Auto 77.2 % (45-73); Platelet Count 310 X10*3/uL (160-400); Red Blood Count 4.31 X10*6/uL (4.60-5.80); Red Cell Distribution Width 17.5 % (11.0-16.0); White Blood Count 8.6 X10*3/uL (4.8-10.8)
[2022-06-07 08:33] LABS: Alanine Aminotransferase 11 U/L (0-40); Albumin Level 3.7 g/dL (3.5-5.0); Alkaline Phosphatase 67 U/L (39-117); Anion Gap 20 (12-20); Aspartate Amino Transferase 26 U/L (5-37); Bilirubin Total 0.6 mg/dL (0.0-1.0); Blood Urea Nitrogen 23 mg/dL (9-16); Carbon Dioxide 21 mmol/L (22-29); Chloride 109 mmol/L (96-108); Creatinine Clr Calc Pharmacy 76.9; Estimated Glomerular Filt Rate > 60; Glucose Fasting 64 mg/dL (60-99); Potassium 4.2 mmol/L (3.3-5.1); Sodium 146 mmol/L (135-145); Total Protein 6.9 g/dL (6.5-8.0)
[2022-06-07 09:36] VITALS: BP 100/60; PULSE 81; RESP 16; O2SAT 95
--- NOTE | 2022-06-07 10:56 | MHC.CM.PN ---
Received notification from Dr Ornelas that patient will be discharged back to [facility]. [facility] booked for 11am. [facility] aware. Attempted to speak with patient's brother/HCP, Clif, via telephone at [phone]. Left message explaining IMM and that patient would be returning to [facility]. Contact information provided. Patient received 4 Pfizer vaccines and has a HCP o file. Continue to monitor for d/c needs.
--- NOTE | 2022-06-07 11:08 | PM.DS ---
DS: Providers Provider Date of Service: 06/07/22 Date of admission: 06/06/22 12:58 Date of discharge: 06/07/22 Primary care physician: Sampson Ornelas DO DS: Diagnosis Discharge Diagnosis (1) Aspiration pneumonia: Status: Acute (2) Essential (primary) hypertension: Status: Acute (3) Schizoaffective disorder: Status: Acute DS: Summary Hospital Course Hospital Course: 77-year-old male past medical history significant for pneumonitis, generalized muscle weakness, gastritis with bleeding, esophageal ulcers, schizoaffective disorder, history of CVA, GERD, dysphagia, dysarthria and anarthria, anoxic brain damage presenting to the emergency department from [facility] for failure to thrive.? According to staff from [facility] patient was not eating, food was falling out of his mouth, they note that patient has been extremely trauma this.? Staff members also report that patient has not been answering questions. Work up in ER consistant with aspiration pneumonia Hospital Course Admitted started on Zosyn. Over the next 24 hours oxygen was weaned to off and sats remained greater than 95%. At this point in time he will be returned to [facility]; Time Spent with Patient Time attestation: Total time spent providing and/or coordinating discharge services: Discharge coordination time: Greater than 30 minutes Quality: Safe Use of Opioids Does Pt have an Active Cancer Diagnosis on the Problem List?: No Quality: Stroke Does the patient have a stroke diagnosis?: No Physical Exam Vital Signs: Vital Signs: Last Vital Signs Temp 98.3 F 06/07/22 07:39 Pulse 81 06/07/22 09:36 Resp 16 06/07/22 09:36 BP 100/60 06/07/22 09:36 Pulse Ox 95 06/07/22 09:36 O2 Del Method 06/07/22 09:36 BMI result Body Mass Index 22.5 Const: Other: Awake alert mumbling nonsensically Resp: Other: Diminished at bases with crackles left lower lobe Cardio: Other: No S4; positive S1-S2; no S3 murmurs rubs or gallops GI: Other: Soft nontender nondistended normoactive bowel sounds Extrem: Other: No edema bilaterally DS: Data Data Completed and Pending Labs on day of discharge: Laboratory Results - last 24 hr 06/06/22 06/06/22 06/06/22 10:31 10:32 10:32 WBC RBC Hgb Hct MCV MCH MCHC RDW Plt Count MPV Immature Gran % (Auto) Neut % (Auto) Lymph % (Auto) [place] % (Auto) Eos % (Auto) Baso % (Auto) Lymph # (Auto) [place] # (Auto) Eos # (Auto) Baso # (Auto) Abs Immat Gran (auto) Absolute Neuts (auto) Absolute Nucleated RBC Nucleated RBC % (auto) Sodium Potassium Chloride Carbon Dioxide Anion Gap BUN Creatinine Estim Creat Clear Calc Estimated GFR Fasting Glucose Calcium Total Bilirubin AST ALT Alkaline Phosphatase Ammonia 29 Troponin I High Sens 7.8 Total Protein Albumin Urine Color Urine Appearance Urine pH Ur Specific [place] Urine Protein Urine Glucose (UA) Urine Ketones Urine Blood Urine Nitrite Ur Leukocyte Esterase Urine RBC Urine WBC Ur Squamous Epith Cells Urine Bacteria Hyaline Casts Urine Opiates Screen Urine Fentanyl Screen Ur Barbiturates Screen Ur Phencyclidine Scrn Ur Amphetamines Screen U Benzodiazepines Scrn Urine Cocaine Screen U Marijuana (THC) Screen COVID-19 (KATELIN) Negative COVID-19 Clin Com See Note 06/06/22 06/06/22 06/07/22 10:57 10:57 07:42 WBC 8.6 RBC 4.31 L Hgb 11.4 L Hct 37.5 L MCV 87.0 MCH 26.5 L MCHC 30.4 L RDW 17.5 H Plt Count 310 MPV 9.4 Immature Gran % (Auto) 0.1 Neut % (Auto) 77.2 H Lymph % (Auto) 11.3 L [place] % (Auto) 9.9 Eos % (Auto) 1.0 Baso % (Auto) 0.5 Lymph # (Auto) 1.0 L [place] # (Auto) 0.9 Eos # (Auto) 0.1 Baso # (Auto) 0.0 Abs Immat Gran (auto) 0.01 Absolute Neuts (auto) 6.6 Absolute Nucleated RBC 0.000 Nucleated RBC % (auto) 0.0 Sodium Potassium Chloride Carbon Dioxide Anion Gap BUN Creatinine Estim Creat Clear Calc Estimated GFR Fasting Glucose Calcium Total Bilirubin AST ALT Alkaline Phosphatase Ammonia Troponin I High Sens Total Protein Albumin Urine Color Dark Yellow Urine Appearance Clear Urine pH 6.0 Ur Specific [place] >= 1.030 H Urine Protein 30 (1+) H Urine Glucose (UA) Negative Urine Ketones Trace Urine Blood Negative Urine Nitrite Negative Ur Leukocyte Esterase Trace H Urine RBC 0-2 Urine WBC 0-5 Ur Squamous Epith Cells 0-2 Urine Bacteria None Seen Hyaline Casts 3-5 Urine Opiates Screen Not Detected Urine Fentanyl Screen Not Detected Ur Barbiturates Screen Not Detected Ur Phencyclidine Scrn Not Detected Ur Amphetamines Screen Not Detected U Benzodiazepines Scrn POSITIVE H Urine Cocaine Screen Not Detected U Marijuana (THC) Screen Not Detected COVID-19 (KATELIN) COVID-19 Clin Com 06/07/22 07:42 WBC RBC Hgb Hct MCV MCH MCHC RDW Plt Count MPV Immature Gran % (Auto) Neut % (Auto) Lymph % (Auto) [place] % (Auto) Eos % (Auto) Baso % (Auto) Lymph # (Auto) [place] # (Auto) Eos # (Auto) Baso # (Auto) Abs Immat Gran (auto) Absolute Neuts (auto) Absolute Nucleated RBC Nucleated RBC % (auto) Sodium 146 H Potassium 4.2 Chloride 109 H Carbon Dioxide 21 L Anion Gap 20 BUN 23 H Creatinine 0.79 Estim Creat Clear Calc 76.9 Estimated GFR > 60 Fasting Glucose 64 Calcium 9.0 Total Bilirubin 0.6 AST 26 ALT 11 Alkaline Phosphatase 67 Ammonia Troponin I High Sens Total Protein 6.9 Albumin 3.7 Urine Color Urine Appearance Urine pH Ur Specific [place] Urine Protein Urine Glucose (UA) Urine Ketones Urine Blood Urine Nitrite Ur Leukocyte Esterase Urine RBC Urine WBC Ur Squamous Epith Cells Urine Bacteria Hyaline Casts Urine Opiates Screen Urine Fentanyl Screen Ur Barbiturates Screen Ur Phencyclidine Scrn Ur Amphetamines Screen U Benzodiazepines Scrn Urine Cocaine Screen U Marijuana (THC) Screen COVID-19 (KATELIN) COVID-19 Clin Com Discharge Plan Discharge Patient Disposition: Xfer LTC Discharge Diagnosis: Aspiration pneumonia Referrals: [facility] [Outside] - 1 Week Sampson Ornelas DO [Primary Care Provider] - 1 Week Discharge Medications: New amoxicillin-pot clavulanate 875-125 mg tablet 1 tab PO BID Qty: 20 0RF Continued calcium polycarbophil [Fiber (calcium polycarbophil)] 625 mg Tablet 625 mg PO DAILY diazepam 5 mg tablet 10 mg PO BEDTIME lactulose 10 gram/15 mL solution 30 ml PO DAILY PRN (Reason: Constipation) menthol-zinc oxide 0.44-20 % Ointment 1 ea TOPICAL TID Rx Instructions: TO COCCYX. CLEAN, DRY SKIN polyethylene glycol 3350 17 gram powder in packet 17 g PO DAILY acetaminophen 325 mg Tablet 650 mg PO Q6H PRN (Reason: Fever) Rx Instructions: do not exceed 3 g/day thiamine HCl (vitamin B1) 100 mg Tablet 100 mg PO DAILY melatonin 3 mg Tablet 3 mg PO BEDTIME PRN (Reason: Insomnia) pantoprazole 40 mg Tablet,Delayed Release (Dr/Ec) 80 mg PO DAILY@0630 mirtazapine 30 mg tablet 1 tab PO BEDTIME diazepam 5 mg tablet 5 mg PO DAILY Systane Ultra 0.4-0.3 % Drops 1 drp OPHTHALMIC (EYE) TID PRN (Reason: Dry Eyes) mirtazapine 7.5 mg tablet 1 tab PO BEDTIME latanoprost 0.005 % drops 1 drp ophthalmic (eye) BEDTIME Rx Instructions: admin 1 drop in both eyes levothyroxine 112 mcg tablet 1 tab PO DAILY@0600 omeprazole 20 mg capsule,delayed release(DR/EC) 1 cap PO DAILY@0630 sennosides [senna] 8.6 mg Tablet 8.6 mg PO DAILY PRN (Reason: Constipation) sennosides [senna] 8.6 mg Tablet 8.6 mg PO DAILY simethicone 80 mg Tablet,Chewable 80 mg PO TID bisacodyl 10 mg Suppository 10 mg NC DAILY PRN (Reason: Constipation) Balmex Adult Care 11.3 % Cream 1 appl TOPICAL TID PRN (Reason: skin protectant) Rx Instructions: apply to coccyx Balmex Adult Care 11.3 % Cream 1 appl TOPICAL TID Rx Instructions: to coccyx oxycodone-acetaminophen 5-325 mg tablet 1 tab PO TID PRN (Reason: Pain, Moderate) Discharge Orders: Discharge Order (Routine); Ordered 06/07/22 Ordered By: Sampson Ornelas Diet: Advance to usual diet Activity on Discharge: As tolerated Stand Alone Forms: Patient Portal Discharge page Care Plan Goals: Returned [facility] resume all previous meds Health Concerns: Speech evaluation in a.m. Plan of Treatment: As outlined in transfer summary. Would resume all house meds Assessment: See transfer summary
== END 2022-06-07 11:19 | DRG 179 ==
LOC: HO.ED 12:14 → HO.EDOVER 13:11
PROVIDERS: Physician Assistant; Admitting Provider Hospitalist; Emergency Provider Internal Medicine; PCP Hospitalist; Visit Provider Hospitalist
DX: J69.0 Pneumonitis due to inhalation of food and vomit (principal); I10 Essential (primary) hypertension; F25.9 Schizoaffective disorder, unspecified; K21.9 Gastro-esophageal reflux disease without esophagitis; Z20.822 Contact with and (suspected) exposure to COVID-19; Z86.73 Personal history of transient ischemic attack (TIA), and cerebral infarction without residual deficits; Z86.16 Personal history of COVID-19; Z79.890 Hormone replacement therapy; Z79.899 Other long term (current) drug therapy
CPT/HCPCS: 36415; 70450; 71045; 71250; 80053; 80307; 81001; 81003; 82077; 82140; 83605; 83735; 84484; 85025; 87040; 87635; 93005; 96361; 96374; 99285; J2543

== ENCOUNTER 2023-05-12 12:25 | Outpatient (REF) | payer MEDICARE, MEDICAID, SELFPAY ==
--- NOTE | ~2023-05-12 | XR_ITS ---
EXAMINATION: XR CHEST CLINICAL INFORMATION: Elevated white count COMPARISON: 06/06/2022 TECHNIQUE: 2 views of the chest were obtained. FINDINGS: Heart and mediastinum within normal limits. Aortic calcifications are vascular. Right lung clear. Development left base linear atelectasis. On lateral view, retrocardiac opacity is seen. Mild degenerative changes. XR/XR chest 2V IMPRESSION: Left lower lobe pneumonia.
== END 2023-05-12 12:26 | disposition home or self-care (01) ==
LOC: HO.XRAY 12:25
PROVIDERS: Visit Provider Hospitalist
DX: Z87.01 Personal history of pneumonia (recurrent) (principal)
CPT/HCPCS: 71046